=== PATIENT | male | born 1945 | race Caucasian/White ===

== ENCOUNTER → 2017-10-28 | Outpatient (CLI) | payer BC, MEDICARE ==
[2017-10-28 09:47] LABS: Appearance,Urine Clear (Clear); Bilirubin,Urine Negative (Negative); Blood,Urine Negative (Negative); Color,Urine Yellow; Glucose,Urine (UA) Negative (Negative); Ketones,Urine Negative (Negative); Leukocyte Esterase,Urine Negative (Negative); Nitrite,Urine Negative (Negative); PH, Urine 6.5 (5.0-8.0); Protein,Urine Negative (Negative); Specific Gravity,Urine 1.008 (1.001-1.035); Urobilinogen,Urine <2.0 mg/dL (<2.0)
[2017-10-28 10:08] LABS: Partial Thromboplastin Time 25.3 sec (22.0-30.0); Prothrombin Time 9.7 sec (9.0-12.0)
[2017-10-28 10:09] LABS: HCT 44.1 % (39.0-53.0); HGB 14.9 gm/dL (13.0-17.5); MCH 34.7 pg (25.0-35.0); MCHC 33.8 g/dL (31.0-37.0); MCV 102.8 fL (80.0-100.0); Macrocytosis Slight; Mean Platelet Volume 6.5; Platelet Count 214 k/uL (150-450); RBC 4.29 m/uL (4.30-5.90); RDW 13.5 % (11.5-15.5); WBC 6.2 k/uL (3.8-10.6)
[2017-10-28 10:14] LABS: ALT 45 U/L (21-72); AST 29 U/L (17-59); Albumin 4.1 g/dL (3.5-5.0); Alkaline Phosphatase 82 U/L (38-126); Anion Gap 6 mmol/L; Blood Urea Nitrogen 13 mg/dL (9-20); Calcium 9.9 mg/dL (8.4-10.2); Carbon Dioxide 30 mmol/L (22-30); Chloride 103 mmol/L (98-107); Glucose 149 mg/dL (74-99); Potassium 4.4 mmol/L (3.5-5.1); Sodium 139 mmol/L (137-145); Total Bilirubin 0.5 mg/dL (0.2-1.3); Total Protein 7.1 g/dL (6.3-8.2)
== END | disposition home or self-care (01) ==
LOC: LABPAT 09:08
PROVIDERS: ATTEND Orthopaedic Surgery
DX: Z01.812 Encounter for preprocedural laboratory examination (principal)
CPT/HCPCS: 80053; 81003; 85027; 85610; 85730; 87070; 93005

== ENCOUNTER → 2018-04-29 | Outpatient (CLI) | payer BC, MEDICARE ==
[2018-04-29 15:56] LABS: HCT 42.3 % (39.0-53.0); HGB 14.1 gm/dL (13.0-17.5); MCHC 33.4 g/dL (31.0-37.0); MCV 98.9 fL (80.0-100.0); Macrocytosis Slight; Mean Platelet Volume 6.8; Platelet Count 224 k/uL (150-450); RBC 4.28 m/uL (4.30-5.90); RDW 15.3 % (11.5-15.5); WBC 6.6 k/uL (3.8-10.6)
[2018-04-29 16:15] LABS: Partial Thromboplastin Time 24.8 sec (22.0-30.0); Prothrombin Time 9.5 sec (9.0-12.0)
[2018-04-29 16:20] LABS: ALT 28 U/L (21-72); AST 18 U/L (17-59); Albumin 3.6 g/dL (3.5-5.0); Alkaline Phosphatase 101 U/L (38-126); Anion Gap 10 mmol/L; Blood Urea Nitrogen 18 mg/dL (9-20); Calcium 8.9 mg/dL (8.4-10.2); Carbon Dioxide 28 mmol/L (22-30); Chloride 103 mmol/L (98-107); Glucose 196 mg/dL (74-99); Potassium 4.2 mmol/L (3.5-5.1); Sodium 141 mmol/L (137-145); Total Bilirubin 0.3 mg/dL (0.2-1.3); Total Protein 6.1 g/dL (6.3-8.2)
[2018-04-29 16:23] LABS: Appearance,Urine Clear (Clear); Bilirubin,Urine Negative (Negative); Blood,Urine Negative (Negative); Color,Urine Yellow; Glucose,Urine (UA) Negative (Negative); Ketones,Urine Negative (Negative); Leukocyte Esterase,Urine Negative (Negative); Nitrite,Urine Negative (Negative); PH, Urine 5.5 (5.0-8.0); Protein,Urine Negative (Negative); Specific Gravity,Urine 1.016 (1.001-1.035); Urobilinogen,Urine <2.0 mg/dL (<2.0)
== END | disposition home or self-care (01) ==
LOC: LABPAT 14:14
PROVIDERS: ATTEND Orthopaedic Surgery
DX: Z01.812 Encounter for preprocedural laboratory examination (principal); Z79.01 Long term (current) use of anticoagulants
CPT/HCPCS: 80053; 81003; 85027; 85610; 85730; 87070

== ENCOUNTER 2018-05-12 13:31 | Inpatient (IN) | payer BC, MEDICARE ==
[~2018-05-12 13:31] MED LIST: ACETAMINOPHEN TAB 500 MG TAB PO ONE; CLINDAMYCIN 900 MG in DEXTROSE 5% IN WATER 50 ML IVPB ONE; DEXAMETHASONE SOD PHOSPHATE 10 MG/ML 1 ML VIAL IV ONE; MELOXICAM 7.5 MG TAB PO ONE; MIDAZOLAM 2 MG/2 ML VIAL IV PRN; MIDAZOLAM 2 MG/2 ML VIAL ONE; ONDANSETRON 4 MG/2 ML VIAL IVP ONE; PROPOFOL 10 MG/ML 20 ML VIAL IV ONE; SODIUM CHLORIDE 0.9% 100 ML BAG ONE; TRANEXAMIC ACID 1,000 MG in SODIUM CHLORIDE 0.9% 50 ML IVPB ONE; TRANEXAMIC ACID 1,000 MG/10 ML VIAL ONE; diphenhydrAMINE 50 MG/ML 1 ML VIAL ONE; fentaNYL (PF) 50 MCG/ML 2 ML AMP IV PRN; fentaNYL (PF) 50 MCG/ML 2 ML AMP ONE
[2018-05-12] MEDS ORDERED: LIDOCAINE 1% 20 ML VIAL (10MG/ML) FOR IV START INTRADERMA ONE (14:13)
[2018-05-12] MEDS: LACTATED RINGERS 1,000 ML IV SCH (14:22)
[2018-05-12] MEDS ORDERED: CLINDAMYCIN 1,800 MG in SODIUM CHLORIDE 0.9% IRRIGATIO 3,000 ML IRRIGATION ONE (14:45)
[2018-05-12] MEDS: ROPIVACAINE 246.25 MG, EPINEPHrine 0.5 MG, KETOROLAC 30 MG, cloNIDine HCL/PF 80 MCG, WA... MISCELLANE ONE ×10 (15:03→15:21)
--- NOTE | 2018-05-12 15:44 | P.OP ---
Date of Procedure: 05/12/18 Preoperative Diagnosis: Severe osteoarthritis right knee Postoperative Diagnosis: Severe osteoarthritis right knee Procedure(s) Performed: Right total knee arthroplasty Implants: [employer] Oxinium femoral component size 6, right [employer] Julieth II right nonporous tibial baseplate size 6 [employer] size 13 mm Legion XLPE dished articular insert, size 5-6 [employer] Julieth II resurfacing patellar component, 35 mm All components were cemented using Jt bone cement.. The articulation is Oxinium on polyethylene. Anesthesia: spinal Surgeon: Jeff Mathew Fpga Engineer #1: Lovely Feldman Estimated Blood Loss (ml): 50 Pathology: other (Bone and cartilage) Condition: stable Disposition: PACU Indications for Procedure: After failure of conservative treatment we discussed the surgical and nonsurgical treatment options at length. Patient wishes to proceed with a total knee arthroplasty. Complications specific to this procedure were discussed at length, including but not limited to infection, bleeding, stiffness , and nerve injury. Patient is aware of all these complications and informed consent was obtained Operative Findings: The operative findings are consistent with severe osteoarthritis of the right knee Description of Procedure: Patient was seen in the preoperative area consent was reviewed and operative site was marked with a skin marker. Patient was then brought to the operating room and given preoperative antibiotics intravenously. A spinal anesthetic was administered by the anesthesia department. A tourniquet was placed on the upper thigh and the lower extremity was prepped and draped in usual sterile fashion. A gram of transexamic acid was given. A universal timeout was then performed which confirmed the patient's name, surgical site, ALLERGIES, and consent. The lower extremity was then exsanguinated and tourniquet was inflated to 350 mmHg. A standard and anterior midline approach to the knee was performed. The skin and subcutaneous tissue was dissected down to the patellar tendon. A medial parapatellar arthrotomy was then performed. The knee was then extended, the patellar was everted, and the knee was again flexed. Anterior horns of both menisci were excised, and a release was performed to the posterior medial aspect of the knee. On gross visual inspection, there was complete loss of articular cartilage in the medial and patellofemoral joint spaces. There was also significant cartilage damage in the lateral compartment. There were multiple periarticular osteophytes which were then removed with a Ronguer. The femoral canal was then opened with the appropriate drill, and the intramedullary femoral cutting guide was then placed and set for 4 of valgus. The distal femoral cutting block was then pinned in place, and the distal femur was then cut. The cutting block was then removed and the cut was checked for flatness. Next, the sizing guide was then placed and set for 3 external rotation based off of the epicondylar axis and Whitesides line. After the femur was sized, the appropriate 4-in-1 cutting block was then pinned in place. The anterior condyles were cut without notching. The posterior and chamfer cuts were performed while protecting the collateral ligaments. The cutting block was then removed, and the femoral canal was plugged with autologous bone. Attention was then directed to the tibia. The remaining ACL was removed with a Ronguer, and the tibia was then gently subluxed forward with a large bent knee retractor. Any remaining menisci was excised. The posterior lateral corner was cauterized in order to cauterize the lateral geniculate artery. The extra medullary tibial cutting guide was then placed, set for the appropriate rotation , slope, and depth of resection. The proximal tibia cutting guide was then pinned in place. Proximal tibia was then cut and sized. Next trials were then placed with the appropriate-sized insert. The knee was able to fully extend and flex to 130 and was stable throughout all range of motion. The knee was then extended, patella everted. Patella was then measured, and then using an osteotomy guide, the patella was cut at the appropriate level. The patella was then measured and drilled and the patella trial was then placed. The knee was then taken through range of motion with the patella trial and the patella tracked normally. The knee was then extended patella trial was then removed and the patella was everted. Knee was then flexed and lug holes were drilled through the femoral trial and the femoral trial was then removed. The tibial was then exposed, and the tibial broach guide was then pinned in place after it was set for the appropriate rotation to allow for the most coverage without overhang. The tibia was then reamed and broached. The cut surfaces of bone were then irrigated with pulsatile lavage. The posterior structures were injected with the ropivacaine solution. The knee was also irrigated with Irrisept solution. The components were then opened, the cement was mixed, and the components were then cemented in place. The cement was allowed to harden with the knee in full extension. While the cement was hardening, the remaining soft tissues were then injected with a ropivacaine solution, which consisted of 246.25 mg of ropivacaine, 0.5 mg of epinephrine, 30 mg of Toradol, 80 g of clonidine, and 48.45 mL of sterile water, for a total of 100 mL of fluid injected. After the cemented hardened. The tourniquet was released, and hemostasis was obtained. A second gram of transexamic acid was given. The knee was again irrigated. The knee was again taken through range of motion and found to be stable throughout all range of motion of 0-130 , and the patella tracked normally. The fascia was then closed with #2 strata fix suture. The subcutaneous tissue was closed with 3-0 Vicryl and 3-0 strata fix. Dermabond glue was used for the skin and placed with the knee in flexion. The patient was placed in a sterile silver dressing. Patient was then transferred to recovery room in stable condition. The statistical assistant AGUSTÍN Navarro was required due the complexity surgery and the need for a skilled certified surgical technician. She assisted in positioning, draping, retraction, and closure of the wound.
[2018-05-12] MEDS ORDERED: NALOXONE 0.4 MG/ML 1 ML VIAL IV PRN (16:32)
[2018-05-12] MEDS ORDERED: DIAZEPAM 5 MG TAB PO PRN ×2 (16:38)
[2018-05-12] MEDS ORDERED: MAGNESIUM HYDROXIDE 2,400 MG/10 ML CUP PO PRN (16:38)
[2018-05-12] MEDS ORDERED: ONDANSETRON 4 MG/2 ML VIAL IVP PRN (16:38)
[2018-05-12] MEDS ORDERED: HYDROcodone/APAP 7.5-325MG 1 EACH TAB PO PRN (16:38)
[2018-05-12] MEDS ORDERED: NA PHOS,M-B/NA PHOS,DI-BA 133 ML ENEMA RECTAL PRN (16:38)
[2018-05-12] MEDS ORDERED: HYDROmorphone 0.5 MG/0.5 ML SYRINGE IVP PRN ×4 (16:38)
[2018-05-12] MEDS ORDERED: BISACODYL 10 MG SUPP RECTAL PRN (16:38)
--- NOTE | 2018-05-12 17:03 | XR ---
EXAMINATION TYPE: XR knee limited RT DATE OF EXAM: 05/12/2018 CLINICAL HISTORY: Right knee pain and arthritis status post total knee replacement. TECHNIQUE: Portable AP and crosstable lateral views of the right knee are obtained immediately posto peratively. COMPARISON: None FINDINGS: Metallic hardware from total right knee arthroplasty is seen and appears satisfactory in a lignment and position. There is evidence of recent surgery with diffuse subcutaneous gas and moderat e diffuse subcutaneous edema noted. IMPRESSION: METALLIC HARDWARE FROM TOTAL RIGHT KNEE ARTHROPLASTY IS SATISFACTORY IN ALIGNMENT.
[2018-05-12] MEDS: SODIUM CHLORIDE 0.9% 1,000 ML IV SCH (18:22)
[2018-05-12] MEDS: CLINDAMYCIN 900 MG in DEXTROSE 5% IN WATER 50 ML IVPB SCH ×4 (18:23→23:21)
--- NOTE | 2018-05-12 18:25 | P.CONS ---
History of Present Illness - Reason for Consult Consult date: 05/12/18 hypertension Requesting physician: Jeff Mathew - Chief Complaint knee pain - History of Present Illness Patient is a 72-year-old male past medical history of hypertension, dyslipidemia, arthritis and coronary artery disease who presented for elective right total knee arthroplasty. Patient underwent right total knee arthroplasty without immediate postoperative complication on 05/12. Dr. Mathew's assistance consult for hypertensive management. Patient seen and examined at bedside after surgery. He tolerated the procedure well. He denies any postoperative pain at this time. He is not having any chest pain, shortness of breath, or nausea. He does not feel lightheaded or dizzy. He is having increasing right knee pain over the last year. He was taking [place] at home and was requiring 2 canes to ambulate. He does live alone. Patient states he was in his normal state of health prior to surgery. He denies any recent cough, cold, fever, flu, nausea, vomiting, diarrhea, or dysuria. He sees Alvino Plata nurse practitioner's his primary care physician. His plan is on auto was for rehab on discharge. Review of Systems Positive: + Right knee pain Pertinent positives and negatives as discussed in HPI, a complete review of systems was performed and all other systems are negative. Past Medical History Past Medical History: Hyperlipidemia, Hypertension, Myocardial Infarction ([place]) Additional Past Medical History / Comment(s): superficial phlibitis left leg, Hepatitis C, hypertension, coronary artery disease, history of MRSA, arthritis Last Myocardial Infarction Date:: unknown History of Any Multi-Drug Resistant Organisms: MRSA Year Discovered:: 2000 MDRO Source:: left hip Past Surgical History: Appendectomy, Heart Catheterization, Joint Replacement, Orthopedic Surgery Additional Past Surgical History / Comment(s): Left total hip arthroplasty 2000 with subsequent MRSA infection, surgery for varicose veins, left hip surgery as teen, right total hip arthroplasty 11/04/17 Past Anesthesia/Blood Transfusion Reactions: No Reported Reaction Additional Past Anesthesia/Blood Transfusion Reaction / Comm: no problems with prior blood transfusion Smoking Status: Current every day smoker Past Alcohol Use History: Daily Additional Past Alcohol Use History / Comment(s): Drinks 2 beers daily Additional Drug Use History / Comment(s): Lives alone, was using 2 canes prior to admission - Past Family History Mother Family Medical History: Cancer Father Family Medical History: Deep Vein Thrombosis (DVT) Brother(s) Family Medical History: Hypertension Medications and Allergies Home Medications Medication Instructions Recorded Confirmed Type Ascorbic Acid [Vitamin C] 500 mg PO DAILY 10/27/17 05/12/18 History FLUoxetine HCL [PROzac] 60 mg PO QAM 10/27/17 05/12/18 History Furosemide [Lasix] 40 mg PO DAILY 10/27/17 05/12/18 History Losartan [Cozaar] 25 mg PO QAM 10/27/17 05/12/18 History Lovastatin [Mevacor] 20 mg PO DAILY 10/27/17 05/12/18 History Multivitamins, Thera [Multivitamin 1 tab PO DAILY 10/27/17 05/12/18 History (formulary)] amLODIPine [Norvasc] 5 mg PO QAM 10/27/17 05/12/18 History Pregabalin [Lyrica] 75 mg PO BID #10 cap 11/05/17 05/12/18 Rx HYDROcodone/APAP 7.5-325MG [[place] 1 - 2 tab PO Q4-6H PRN #90 tab 11/07/17 Rx 7.5-325] Aspirin 325 mg PO DAILY 05/05/18 05/12/18 History Allergies Allergy/AdvReac Type Severity Reaction Status Date / Time adhesive tape Allergy blisters Verified 05/12/18 17:05 Penicillins Allergy Swelling Verified 05/12/18 17:05 Physical Exam Osteopathic Statement: *. No significant issues noted on an osteopathic structural exam other than those noted in the History and Physical/Consult. Vitals: Vital Signs Temp Pulse Resp BP Pulse Ox 05/12/18 17:30 50 L 18 141/72 92 L 05/12/18 17:15 50 L 18 136/71 92 L 05/12/18 17:00 49 L 16 140/70 92 L 05/12/18 16:41 49 L 16 141/73 100 05/12/18 16:24 97.2 F L 53 L 12 153/73 94 L 05/12/18 13:56 98.3 F 66 18 147/70 96 Intake and Output 05/12/18 05/12/18 05/12/18 06:59 14:59 22:59 Intake Total 857 0 Output Total 50 Balance 857 -50 Intake: IV 857 0 Output: Estimated Blood Loss 50 General: non toxic, no distress, appears at stated age, obese Derm: no unusual rashes/lesions no unusual ecchymoses, warm, dry, right leg with Eulogio wrap in place Head: atraumatic, normocephalic, symmetric Eyes: EOMI, no lid lag, anicteric sclera, pupils equal round reactive to light ENT: Nose and ears atraumatic, no thrush, no pharyngeal erythema Neck: No thyromegaly, no cervical lymphadenopathy, trachea midline, supple Mouth: no lip lesion, mucous membranes dry Cardiovascular: S1S2 reg, no murmur, positive posterior tibial pulse bilateral, trace edema right foot, capillary refill less than 2 seconds Lungs: Decreased breath sounds bilateral bases, no rhonchi, no rales , no accessory muscle use Abdominal: soft, nontender to palpation, no guarding, no appreciable organomegaly, normal bowel sounds Ext: no gross muscle atrophy, muscle strength 5 out of 5 in upper extremity, 4 out of 5 in left lower extremity, able to wiggle toes and right lower extremity , no contractures, Neuro: CN II-XI grossly intact, light touch intact all 4 extremities, finger to nose within normal limits, Psych: Alert, oriented, appropriate affect Results Labs: Preoperative blood work reviewed hemoglobin on 04/29/1814.1, creatinine 0.6, glucose 196 Assessment and Plan Assessment: Severe osteoarthritis status post right total knee arthroplasty -DVT prophylaxis with aspirin twice daily -Pain control -Bowel regiment -PT/OT -Plan is for [facility] for rehab on discharge Elevated random preoperative blood sugar greater than 196 -Warrants testing for possible overt diabetes -add sliding scale and test A1c Hypertension, controlled -Resume home Norvasc, Lasix, and Cozaar -Follow blood pressures -Do not plan to treat blood pressure elevation unless greater than 180 or symptoms of chest discomfort, shortness of breath or headaches Dyslipidemia -Statin Coronary artery disease -Maintain statin, aspirin will be twice a day postoperatively for DVT prophylaxis, not chronically on beta marlo and will not initiate at this point in time Morbid obesity with BMI 53.9 -Structured outpatient weight loss Preoperative debility with cane use and lives alone -PT/OT -Fall precautions -Patient will need rehab at discharge Thank you for allowing us to participate in the care of this patient. Do not hesitate to contact us with questions. Someone can be reached from the [facility] hospitalist group at all hours of the day at [phone].
[2018-05-12] MEDS ORDERED: LORazepam 2 MG/ML INJ IV PRN ×3 (19:04)
[2018-05-12] MEDS: THIAMINE 100 MG TAB PO SCH (20:15)
[2018-05-12] MEDS: ASPIRIN 325 MG TAB PO SCH (20:16)
[2018-05-12] MEDS: ATORVASTATIN 10 MG TAB PO SCH (20:17)
[2018-05-12] MEDS: PREGABALIN 75 MG CAP PO SCH (20:17)
[2018-05-12] MEDS: SENNOSIDES-DOCUSATE SODIUM 1 EACH TAB PO SCH (20:17)
[2018-05-12 20:44] LABS: Glucose,Whole Blood 256 mg/dL (75-99)
[2018-05-12] MEDS: INSULIN ASPART 100 UNIT/ML 1 ML 10 ML VIAL SQ SCH (20:55)
[2018-05-13] MEDS ORDERED: NICOTINE 21MG/24HR PATCH TRANSDERM SCH (09:00)
[2018-05-13 09:49] LABS: Glucose,Whole Blood 230 mg/dL (75-99)
[2018-05-13] MEDS: HYDROcodone/APAP 7.5-325MG 1 EACH TAB PO PRN ×2 (10:37→17:04)
[2018-05-13] MEDS: hydrOXYzine PAMOATE 25 MG CAP PO PRN (10:37)
[2018-05-13] MEDS: SODIUM CHLORIDE 0.9% 1,000 ML IV SCH ×2 (11:03→22:56)
[2018-05-13] MEDS: LACTATED RINGERS 1,000 ML IV SCH (11:03)
[2018-05-13] MEDS: ASCORBIC ACID 500 MG TAB PO SCH (11:03)
[2018-05-13] MEDS: amLODIPine 5 MG TAB PO SCH (11:03)
[2018-05-13] MEDS: INSULIN ASPART 100 UNIT/ML 1 ML 10 ML VIAL SQ SCH ×4 (11:03→21:35)
[2018-05-13] MEDS: FUROSEMIDE 40 MG TAB PO SCH (11:04)
[2018-05-13] MEDS: FLUoxetine HCL 20 MG CAP PO SCH (11:04)
[2018-05-13] MEDS: PREGABALIN 75 MG CAP PO SCH ×2 (11:04→20:26)
[2018-05-13] MEDS: MELOXICAM 7.5 MG TAB PO SCH (11:04)
[2018-05-13] MEDS: ASPIRIN 325 MG TAB PO SCH ×2 (11:04→20:26)
[2018-05-13] MEDS: LOSARTAN 25 MG TAB PO SCH (11:04)
[2018-05-13 11:33] LABS: Basophils % (A) 0 %; Eosinophils % (A) 0 %; HCT 38.7 % (39.0-53.0); HGB 12.9 gm/dL (13.0-17.5); Lymphocytes % (A) 12 %; MCH 33.7 pg (25.0-35.0); MCHC 33.4 g/dL (31.0-37.0); MCV 100.9 fL (80.0-100.0); Macrocytosis Slight; Mean Platelet Volume 7.4; Monocytes # (A) 0.6 k/uL (0-1.0); Monocytes % (A) 7 %; Neutrophils # (A) 6.8 k/uL (1.3-7.7); Neutrophils % (A) 79 %; Platelet Count 216 k/uL (150-450); RBC 3.83 m/uL (4.30-5.90); RDW 15.8 % (11.5-15.5); WBC 8.6 k/uL (3.8-10.6)
[2018-05-13 11:44] LABS: Glucose,Whole Blood 169 mg/dL (75-99)
--- NOTE | 2018-05-13 12:04 | P.PN ---
Subjective Progress Note Date: 05/13/18 This is a 72-year-old male who is status post right total knee arthroplasty. This is postoperative day #1. Patient is seen and evaluated at bedside with Dr. Jeff Mathew. Patient states that his pain is well-controlled today. Patient denies any fever/chills, numbness, weakness, tingling, shortness of breath or chest pain. Objective - Vital Signs Vital signs: Vital Signs Temp 96.9 F L 05/13/18 01:30 Pulse 64 05/13/18 01:30 Resp 16 05/13/18 01:30 BP 143/67 05/13/18 01:30 Pulse Ox 91 L 05/13/18 01:30 Intake & Output 05/12/18 05/13/18 05/13/18 18:59 06:59 18:59 Intake Total 857 Output Total 50 1300 Balance 807 -1300 Weight 170.551 kg Intake: IV 857 Output: Urine 1300 Estimated Blood Loss 50 - Exam vvital signs are stable. Patient is alert and oriented 3 sitting up in bed in no acute distress. Surgical dressing intact with a mild amount of drainage present. There is mild soft tissue swelling of the right knee. Calf is soft and nontender to palpation. Patient has full foot and ankle motion without pain or difficulty. Neurovascular status and circulatory status are intact. - Labs CBC & Chem 7: 05/13/18 07:55 Labs: Abnormal Lab Results - Last 24 Hours (Table) 05/12/18 05/13/18 Range/Units 20:32 09:47 POC Glucose (mg/dL) 256 H 230 H (75-99) mg/dL Assessment and Plan (1) Primary osteoarthritis of right knee Current Visit: Yes Status: Acute Code(s): M17.11 - UNILATERAL PRIMARY OSTEOARTHRITIS, RIGHT KNEE SNOMED Code(s): 832768994828858 (2) S/P total knee arthroplasty Current Visit: Yes Status: Acute Code(s): Z96.659 - PRESENCE OF UNSPECIFIED ARTIFICIAL KNEE JOINT SNOMED Code(s): 8390972622880 Plan: #1 Continue with routine postoperative care. Will change silver dressing tomorrow due to drainage. #2 Anticoagulation with aspirin. #3 Physical therapy and CPM today. #4 Appreciate input from medicine. #5 Anticipate discharge to rehab Friday.
[2018-05-13] MEDS: MULTIVITAMINS, THERA 1 EACH TAB PO SCH (12:38)
[2018-05-13] MEDS: FOLIC ACID 1 MG TAB PO SCH (12:38)
[2018-05-13] MEDS: THIAMINE 100 MG TAB PO SCH ×2 (12:38→17:04)
--- NOTE | 2018-05-13 13:43 | P.PN ---
Subjective Progress Note Date: 05/13/18 Principal diagnosis: Right knee pain Patient is a 72-year-old male past medical history of hypertension, dyslipidemia, arthritis and coronary artery disease who presented for elective right total knee arthroplasty. Patient underwent right total knee arthroplasty without immediate postoperative complication on 05/12. Dr. Mathew's asked us to consult for hypertensive management. Patient seen and examined at bedside. He states his pain is well controlled. He denies any shortness of breath, nausea, or diarrhea. He is not having any chest pain postoperatively. He has not yet had a bowel movement. Blood sugar yesterday evening was 256 this morning after breakfast was 230. Hemoglobin A1c is currently pending. Discussed with patient possibility of early diabetes. Patient went for a walk today with therapy and had drainage coming out of his wound that was bloody. They did require redressing the wound. Objective - Vital Signs Vital signs: Vital Signs Temp 96.9 F L 05/13/18 01:30 Pulse 64 05/13/18 01:30 Resp 16 05/13/18 01:30 BP 143/67 05/13/18 01:30 Pulse Ox 91 L 05/13/18 01:30 Intake & Output 05/12/18 05/13/18 05/13/18 18:59 06:59 18:59 Intake Total 857 Output Total 50 1300 Balance 807 -1300 Weight 170.551 kg Intake: IV 857 Output: Urine 1300 Estimated Blood Loss 50 - Exam General: non toxic, no distress, appears at stated age, obese Derm: warm, dry, right knee with dressing in place with sanguinousdrainage Head: atraumatic, normocephalic, symmetric Eyes: EOMI, no lid lag, anicteric sclera Mouth: no lip lesion, mucus membranes moist Cardiovascular: S1S2 reg, no murmur, positive posterior tibial pulse bilateral, Lungs: decreased breath sounds bilateral bases, no rhonchi, no rales , no accessory muscle use Abdominal: soft, nontender to palpation, no guarding, no appreciable organomegaly Ext: no gross muscle atrophy, trace edema bilateral lower extremities, no contractures Neuro: CN II-XI grossly intact, no focal neuro deficits Psych: Alert, oriented, appropriate affect - Labs CBC & Chem 7: 05/13/18 07:55 Labs: Abnormal Lab Results - Last 24 Hours (Table) 05/12/18 05/13/18 05/13/18 Range/Units 20:32 07:55 09:47 RBC 3.83 L (4.30-5.90) m/uL Hgb 12.9 L (13.0-17.5) gm/dL Hct 38.7 L (39.0-53.0) % MCV 100.9 H (80.0-100.0) fL RDW 15.8 H (11.5-15.5) % POC Glucose (mg/dL) 256 H 230 H (75-99) mg/dL 05/13/18 Range/Units 11:42 RBC (4.30-5.90) m/uL Hgb (13.0-17.5) gm/dL Hct (39.0-53.0) % MCV (80.0-100.0) fL RDW (11.5-15.5) % POC Glucose (mg/dL) 169 H (75-99) mg/dL Assessment and Plan Assessment: Severe osteoarthritis status post right total knee arthroplasty -DVT prophylaxis with aspirin twice daily -Pain control -Bowel regiment -PT/OT -Plan is for [facility] for rehab on discharge: risks lives alone, cane use prior, obesity, prior narcotic use, and possible diabetes. Elevated Blood sugars -Sliding-scale insulin -Await hemoglobin A1c, elevated greater than 6.5 consult international bank manager and initiate oral medication therapy. Hypertension, controlled -Resume home Norvasc, Lasix, and Cozaar -Follow blood pressures -Do not plan to treat blood pressure elevation unless greater than 180 or symptoms of chest discomfort, shortness of breath or headaches Dyslipidemia -Statin Coronary artery disease -Maintain statin, aspirin will be twice a day postoperatively for DVT prophylaxis, not chronically on beta marlo and will not initiate at this point in time Morbid obesity with BMI 53.9 -Structured outpatient weight loss Preoperative debility with cane use and lives alone -PT/OT -Fall precautions -Patient will need rehab at discharge Thank you for allowing us to participate in the care of this patient. Do not hesitate to contact us with questions. Someone can be reached from the [facility] hospitalist group at all hours of the day at [phone].
[2018-05-13 17:11] LABS: Glucose,Whole Blood 149 mg/dL (75-99)
[2018-05-13 17:20] LABS: Hemoglobin A1C 7.3 % (4.0-6.0)
[2018-05-13] MEDS: ATORVASTATIN 10 MG TAB PO SCH (20:26)
[2018-05-13] MEDS: SENNOSIDES-DOCUSATE SODIUM 1 EACH TAB PO SCH (20:27)
[2018-05-13 21:27] LABS: Glucose,Whole Blood 192 mg/dL (75-99)
[2018-05-14] MEDS: HYDROcodone/APAP 7.5-325MG 1 EACH TAB PO PRN ×3 (05:40→18:37)
[2018-05-14] MEDS: LACTATED RINGERS 1,000 ML IV SCH (05:50)
[2018-05-14 07:17] LABS: Glucose,Whole Blood 160 mg/dL (75-99)
--- NOTE | 2018-05-14 08:42 | P.PN ---
Subjective Progress Note Date: 05/14/18 This is a 72-year-old male who is status post right total knee arthroplasty. This is postoperative day #2. Patient states that he has been up and walking with physical therapy. Patient complains of drainage from the incision when walking. Patient denies any fever/chills, numbness, weakness, tingling, shortness of breath or chest pain. Objective - Vital Signs Vital signs: Vital Signs Temp 98.6 F 05/14/18 07:00 Pulse 95 05/14/18 07:00 Resp 16 05/14/18 07:00 BP 148/77 05/14/18 07:00 Pulse Ox 96 05/14/18 07:00 Intake & Output 05/13/18 05/14/18 05/14/18 18:59 06:59 18:59 Output Total 675 450 Balance -675 -450 Weight 170 kg Output: Urine 675 450 Other: # Voids 1 1 - Exam Vital signs are stable. Patient is alert and oriented 3 sitting up in bed in no acute distress. Surgical dressing intact with a moderate amount of drainage present. There is mild soft tissue swelling of the right knee. Calf is soft and nontender to palpation. Patient has full foot and ankle motion without pain or difficulty. Neurovascular status and circulatory status are intact. - Labs CBC & Chem 7: 05/13/18 07:55 Labs: Abnormal Lab Results - Last 24 Hours (Table) 05/13/18 05/13/18 05/13/18 Range/Units 07:55 07:55 09:47 RBC 3.83 L (4.30-5.90) m/uL Hgb 12.9 L (13.0-17.5) gm/dL Hct 38.7 L (39.0-53.0) % MCV 100.9 H (80.0-100.0) fL RDW 15.8 H (11.5-15.5) % POC Glucose (mg/dL) 230 H (75-99) mg/dL Hemoglobin A1c 7.3 H (4.0-6.0) % 05/13/18 05/13/18 05/13/18 Range/Units 11:42 17:09 21:16 RBC (4.30-5.90) m/uL Hgb (13.0-17.5) gm/dL Hct (39.0-53.0) % MCV (80.0-100.0) fL RDW (11.5-15.5) % POC Glucose (mg/dL) 169 H 149 H 192 H (75-99) mg/dL Hemoglobin A1c (4.0-6.0) % 05/14/18 Range/Units 07:15 RBC (4.30-5.90) m/uL Hgb (13.0-17.5) gm/dL Hct (39.0-53.0) % MCV (80.0-100.0) fL RDW (11.5-15.5) % POC Glucose (mg/dL) 160 H (75-99) mg/dL Hemoglobin A1c (4.0-6.0) % Assessment and Plan (1) Primary osteoarthritis of right knee Current Visit: Yes Status: Acute Code(s): M17.11 - UNILATERAL PRIMARY OSTEOARTHRITIS, RIGHT KNEE SNOMED Code(s): 763694405219375 (2) S/P total knee arthroplasty Current Visit: Yes Status: Acute Code(s): Z96.659 - PRESENCE OF UNSPECIFIED ARTIFICIAL KNEE JOINT SNOMED Code(s): 8847364424514 Plan: #1 Continue with routine postoperative care. Will change silver dressing tomorrow due to drainage. #2 Anticoagulation with aspirin. #3 Physical therapy today, hold CPM today due to drainage. #4 Appreciate input from medicine. #5 Anticipate discharge to rehab Friday.
[2018-05-14] MEDS: INSULIN ASPART 100 UNIT/ML 1 ML 10 ML VIAL SQ SCH ×4 (09:05→20:47)
[2018-05-14] MEDS: MELOXICAM 7.5 MG TAB PO SCH (09:06)
[2018-05-14] MEDS: ASPIRIN 325 MG TAB PO SCH ×2 (09:06→20:41)
[2018-05-14] MEDS: LOSARTAN 25 MG TAB PO SCH (09:06)
[2018-05-14] MEDS: PREGABALIN 75 MG CAP PO SCH ×2 (09:07→20:41)
[2018-05-14] MEDS: FLUoxetine HCL 20 MG CAP PO SCH (09:07)
[2018-05-14] MEDS: ASCORBIC ACID 500 MG TAB PO SCH (09:07)
[2018-05-14] MEDS: amLODIPine 5 MG TAB PO SCH (09:08)
[2018-05-14] MEDS: FUROSEMIDE 40 MG TAB PO SCH (09:13)
--- NOTE | 2018-05-14 10:57 | P.PN ---
Subjective Progress Note Date: 05/14/18 Principal diagnosis: Right knee pain Patient is a 72-year-old male past medical history of hypertension, dyslipidemia, arthritis and coronary artery disease who presented for elective right total knee arthroplasty. Patient underwent right total knee arthroplasty without immediate postoperative complication on 05/12. Dr. Mathew's asked us to consult for hypertensive management. He was found to have new diabetes with A1C 7.3 Patient seen and examined at bedside. No chest pain, shortness breath, nausea, or vomiting. Pain well controlled. He is still bleeding when he is up and ambulating. Discussed with patient the diagnosis of diabetes. Need for eye exam and foot exam after discharge as well as close follow-up with his PCP. Need for monitoring of blood sugar. Also discussed with him starting a medication such as metformin and patient is in agreement with plan of care. He has been having constipation recently after the surgery. Objective - Vital Signs Vital signs: Vital Signs Temp 98.6 F 05/14/18 07:00 Pulse 95 05/14/18 07:00 Resp 16 05/14/18 07:00 BP 148/77 05/14/18 07:00 Pulse Ox 96 05/14/18 07:00 Intake & Output 05/13/18 05/14/18 05/14/18 18:59 06:59 18:59 Output Total 675 450 Balance -675 -450 Weight 170 kg Output: Urine 675 450 Other: # Voids 1 1 - Exam General: non toxic, no distress, appears at stated age, obese Derm: warm, dry, right knee with dressing in place with small amount of soak through Head: atraumatic, normocephalic, symmetric Eyes: EOMI, no lid lag, anicteric sclera Mouth: no lip lesion, mucus membranes moist Cardiovascular: S1S2 reg, no murmur, positive posterior tibial pulse bilateral, Lungs: decreased breath sounds bilateral bases, no rhonchi, no rales , no accessory muscle use Abdominal: soft, nontender to palpation, no guarding, no appreciable organomegaly Ext: no gross muscle atrophy, trace edema bilateral lower extremities, no contractures Neuro: CN II-XI grossly intact, no focal neuro deficits Psych: Alert, oriented, appropriate affect - Labs CBC & Chem 7: 05/13/18 07:55 Labs: Abnormal Lab Results - Last 24 Hours (Table) 05/13/18 05/13/18 05/13/18 Range/Units 07:55 07:55 11:42 RBC 3.83 L (4.30-5.90) m/uL Hgb 12.9 L (13.0-17.5) gm/dL Hct 38.7 L (39.0-53.0) % MCV 100.9 H (80.0-100.0) fL RDW 15.8 H (11.5-15.5) % POC Glucose (mg/dL) 169 H (75-99) mg/dL Hemoglobin A1c 7.3 H (4.0-6.0) % 05/13/18 05/13/18 05/14/18 Range/Units 17:09 21:16 07:15 RBC (4.30-5.90) m/uL Hgb (13.0-17.5) gm/dL Hct (39.0-53.0) % MCV (80.0-100.0) fL RDW (11.5-15.5) % POC Glucose (mg/dL) 149 H 192 H 160 H (75-99) mg/dL Hemoglobin A1c (4.0-6.0) % Assessment and Plan Assessment: New onset diabetes, A1c 7.3. -Start metformin -Continue with sliding scale insulin -Consult aluminum siding applicator and dietitian -We will need prescription for metformin as an outpatient. Will need Rx for glucometer when discharged from SNF. - Informed patient of need for optho and foot evaluation. -Already taking an ARB and no indication to check microalbumin Severe osteoarthritis status post right total knee arthroplasty -DVT prophylaxis with aspirin twice daily -Pain control -Bowel regiment -PT/OT -Plan is for [facility] for rehab on discharge: risks lives alone, cane use prior, obesity, prior narcotic use, and possible diabetes. Hypertension, controlled -Resume home Norvasc, Lasix, and Cozaar -Follow blood pressures -Do not plan to treat blood pressure elevation unless greater than 180 or symptoms of chest discomfort, shortness of breath or headaches Dyslipidemia -Statin Coronary artery disease -Maintain statin, aspirin will be twice a day postoperatively for DVT prophylaxis, not chronically on beta marlo and will not initiate at this point in time Morbid obesity with BMI 53.9 -Structured outpatient weight loss Preoperative debility with cane use and lives alone -PT/OT -Fall precautions -Patient will need rehab at discharge Thank you for allowing us to participate in the care of this patient. Do not hesitate to contact us with questions. Someone can be reached from the [facility] hospitalist group at all hours of the day at [phone].
[2018-05-14 11:14] VITALS: BMI 53.7
[2018-05-14] MEDS: THIAMINE 100 MG TAB PO SCH ×2 (11:21→16:44)
[2018-05-14] MEDS: FOLIC ACID 1 MG TAB PO SCH (11:21)
[2018-05-14] MEDS: MULTIVITAMINS, THERA 1 EACH TAB PO SCH (11:21)
[2018-05-14 11:28] LABS: Glucose,Whole Blood 186 mg/dL (75-99)
[2018-05-14] MEDS: hydrOXYzine PAMOATE 25 MG CAP PO PRN ×2 (11:41→18:37)
[2018-05-14] MEDS: SODIUM CHLORIDE 0.9% 1,000 ML IV SCH (13:57)
[2018-05-14 16:32] LABS: Glucose,Whole Blood 153 mg/dL (75-99)
[2018-05-14] MEDS: metFORMIN 500 MG TAB PO SCH (16:44)
[2018-05-14 20:10] LABS: Glucose,Whole Blood 138 mg/dL (75-99)
[2018-05-14] MEDS: SENNOSIDES-DOCUSATE SODIUM 1 EACH TAB PO SCH (20:41)
[2018-05-14] MEDS: ATORVASTATIN 10 MG TAB PO SCH (20:41)
[2018-05-15] MEDS: HYDROcodone/APAP 7.5-325MG 1 EACH TAB PO PRN ×3 (00:20→12:39)
[2018-05-15] MEDS: LACTATED RINGERS 1,000 ML IV SCH (06:01)
[2018-05-15 06:04] VITALS: BP 163/79; PULSE 60; RESP 16; TEMP 97.7
[2018-05-15 07:23] LABS: Basophils % (A) 1 %; Eosinophils # (A) 0.2 k/uL (0-0.7); Eosinophils % (A) 4 %; HCT 38.3 % (39.0-53.0); HGB 12.7 gm/dL (13.0-17.5); Lymphocytes # (A) 1.6 k/uL (1.0-4.8); Lymphocytes % (A) 26 %; MCH 32.9 pg (25.0-35.0); MCHC 33.1 g/dL (31.0-37.0); MCV 99.3 fL (80.0-100.0); Macrocytosis Slight; Mean Platelet Volume 6.3; Monocytes # (A) 0.4 k/uL (0-1.0); Monocytes % (A) 7 %; Neutrophils # (A) 3.8 k/uL (1.3-7.7); Neutrophils % (A) 61 %; Platelet Count 253 k/uL (150-450); RBC 3.85 m/uL (4.30-5.90); RDW 15.4 % (11.5-15.5); WBC 6.2 k/uL (3.8-10.6)
[2018-05-15 07:35] LABS: Glucose,Whole Blood 155 mg/dL (75-99)
[2018-05-15] MEDS: metFORMIN 500 MG TAB PO SCH (08:10)
[2018-05-15] MEDS: ASCORBIC ACID 500 MG TAB PO SCH (08:10)
[2018-05-15] MEDS: FUROSEMIDE 40 MG TAB PO SCH (08:10)
[2018-05-15] MEDS: MELOXICAM 7.5 MG TAB PO SCH (08:10)
[2018-05-15] MEDS: ASPIRIN 325 MG TAB PO SCH (08:10)
[2018-05-15] MEDS: PREGABALIN 75 MG CAP PO SCH (08:10)
[2018-05-15] MEDS: LOSARTAN 25 MG TAB PO SCH (08:11)
[2018-05-15] MEDS: amLODIPine 5 MG TAB PO SCH (08:11)
[2018-05-15] MEDS: FLUoxetine HCL 20 MG CAP PO SCH (08:11)
[2018-05-15] MEDS: INSULIN ASPART 100 UNIT/ML 1 ML 10 ML VIAL SQ SCH ×2 (08:12→12:32)
--- NOTE | 2018-05-15 08:13 | P.DS ---
Providers Date of admission: 05/12/18 13:40 Expected date of discharge: 05/15/18 Attending physician: Jeff Mathew Consults: 05/12/18 16:38 Consult Physician Routine Consulting Provider: Alvino Og Consult Reason/Comments: medical management Do you want consulting provider notified?: Yes 05/12/18 17:47 Consult Physician Routine Consulting Provider: Rhonda Marcum Consult Reason/Comments: medical management Do you want consulting provider notified?: Yes Primary care physician: Alfredo Velásquez MD - Discharge Diagnosis(es) (1) Primary osteoarthritis of right knee Current Visit: Yes Status: Acute (2) S/P total knee arthroplasty Current Visit: Yes Status: Acute Hospital Course: This is a 72-year-old male with known history of degenerative arthritis of the right knee. The patient presents for evaluation. After discussion and consideration patient elects to proceed with total knee arthroplasty. The patient is seen preoperatively by Dr. Mathew and medically cleared for surgery by their primary care physician. Patient is admitted to [facility] on 05/12/2018 for total knee arthroplasty. The procedures performed without complication or sequelae. The patient is doing well postoperatively. Labs and vital signs are stable on day of discharge. On day of discharge patient's knee incision is healing well. There is minimal erythema. There is mild drainage noted at this time. There is minimal soft tissue swelling to the knee. Patient has full foot and ankle motion without difficulty or pain. Neurovascular status to the right lower extremity is intact. Patient is discharged to rehab in good condition. Please see med rec for accurate list of home medications. Plan - Discharge Summary Discharge Rx Participant: Yes New Discharge Prescriptions: New Aspirin 325 mg PO BID #60 tab HYDROcodone/APAP 7.5-325MG [[place] 7.5-325] 1 - 2 tab PO Q4-6H PRN #90 tab PRN Reason: Pain Sennosides [Senokot] 1 tab PO BID #60 tablet No Action Multivitamins, Thera [Multivitamin (formulary)] 1 tab PO DAILY Ascorbic Acid [Vitamin C] 500 mg PO DAILY Lovastatin [Mevacor] 20 mg PO DAILY Furosemide [Lasix] 40 mg PO DAILY FLUoxetine HCL [PROzac] 60 mg PO QAM amLODIPine [Norvasc] 5 mg PO QAM Losartan [Cozaar] 25 mg PO QAM Pregabalin [Lyrica] 75 mg PO BID #10 cap HYDROcodone/APAP 7.5-325MG [[place] 7.5-325] 1 - 2 tab PO Q4-6H PRN #90 tab PRN Reason: Pain Aspirin 325 mg PO DAILY Discharge Medication List Ascorbic Acid [Vitamin C] 500 mg PO DAILY 10/27/17 [History] FLUoxetine HCL [PROzac] 60 mg PO QAM 10/27/17 [History] Furosemide [Lasix] 40 mg PO DAILY 10/27/17 [History] Losartan [Cozaar] 25 mg PO QAM 10/27/17 [History] Lovastatin [Mevacor] 20 mg PO DAILY 10/27/17 [History] Multivitamins, Thera [Multivitamin (formulary)] 1 tab PO DAILY 10/27/17 [History ] amLODIPine [Norvasc] 5 mg PO QAM 10/27/17 [History] Pregabalin [Lyrica] 75 mg PO BID #10 cap 11/05/17 [Rx] HYDROcodone/APAP 7.5-325MG [[place] 7.5-325] 1 - 2 tab PO Q4-6H PRN #90 tab [Rx] Aspirin 325 mg PO DAILY 05/05/18 [History] Aspirin 325 mg PO BID #60 tab 05/15/18 [Rx] HYDROcodone/APAP 7.5-325MG [[place] 7.5-325] 1 - 2 tab PO Q4-6H PRN #90 tab [Rx] Sennosides [Senokot] 1 tab PO BID #60 tablet 05/15/18 [Rx] Follow up Appointment(s)/Referral(s): Jeff Mathew DO [Doctor of Osteopathic Medicine] - 05/25/18 3:40 pm Ambulatory/Diagnostic Orders: Continuous Passive Motion (CPM) Machine [DME.AMB1] Time Frame: 3 Weeks, Location : None Selected Activity/Diet/Wound Care/Special Instructions: Will need accucheck once daily in AM. after discharge from [facility] will need foot exam and dilated eye exam. Upon discharge from [facility] will also need prescription for a glucometer, and testing supplies. Weightbearing as tolerated with a walker CPM 5-6h daily Leave dressing intact. May be removed by home care nurse in 10 days. May shower with dressing on. Please call [facility] with any questions or concerns, Discharge Disposition: TRANSFER TO SNF/ECF
[2018-05-15] MEDS: SODIUM CHLORIDE 0.9% 1,000 ML IV SCH (08:19)
--- NOTE | 2018-05-15 10:52 | P.PN ---
Subjective Progress Note Date: 05/15/18 Principal diagnosis: Right knee pain Patient is a 72-year-old male past medical history of hypertension, dyslipidemia, arthritis and coronary artery disease who presented for elective right total knee arthroplasty. Patient underwent right total knee arthroplasty without immediate postoperative complication on 05/12. Dr. Mathew's asked us to consult for hypertensive management. He was found to have new diabetes with A1C 7.3 Patient seen and examined at bedside. Feeling well no complaints currently. No chest pain, SOB, or nausea. No BM yesterday. Met with environmental educator and dietitian. Objective - Vital Signs Vital signs: Vital Signs Temp 97.7 F 05/15/18 05:15 Pulse 60 05/15/18 05:15 Resp 16 05/15/18 05:15 BP 163/79 05/15/18 05:15 Pulse Ox 94 L 05/15/18 05:15 Intake & Output 05/14/18 05/15/18 05/15/18 18:59 06:59 18:59 Intake Total 236 500 240 Output Total 1050 400 Balance -814 500 -160 Weight 170 kg Intake: Oral 236 500 240 Output: Urine 1050 400 Other: Voiding Method Toilet Urinal # Voids 2 - Exam General: non toxic, no distress, appears at stated age, obese Derm: warm, dry, right knee with dressing in place with large amount of soak through Head: atraumatic, normocephalic, symmetric Eyes: EOMI, no lid lag, anicteric sclera Mouth: no lip lesion, mucus membranes moist Cardiovascular: S1S2 reg, no murmur, positive posterior tibial pulse bilateral, Lungs: decreased breath sounds bilateral bases, no rhonchi, no rales , no accessory muscle use Abdominal: soft, nontender to palpation, no guarding, no appreciable organomegaly Ext: no gross muscle atrophy, trace edema bilateral lower extremities, no contractures Neuro: CN II-XI grossly intact, no focal neuro deficits Psych: Alert, oriented, appropriate affect - Labs CBC & Chem 7: 05/15/18 06:47 Labs: Abnormal Lab Results - Last 24 Hours (Table) 05/14/18 05/14/18 05/14/18 Range/Units 11:26 16:26 20:09 RBC (4.30-5.90) m/uL Hgb (13.0-17.5) gm/dL Hct (39.0-53.0) % POC Glucose (mg/dL) 186 H 153 H 138 H (75-99) mg/dL 05/15/18 05/15/18 Range/Units 06:47 07:15 RBC 3.85 L (4.30-5.90) m/uL Hgb 12.7 L (13.0-17.5) gm/dL Hct 38.3 L (39.0-53.0) % POC Glucose (mg/dL) 155 H (75-99) mg/dL Assessment and Plan Assessment: New onset diabetes, A1c 7.3. -metformin 500 BID, follow up [facility] PCP -Continue with sliding scale insulin -Met with environmental educator and dietitian -We will need prescription for metformin as an outpatient. Will need Rx for glucometer when discharged from SNF. - Informed patient of need for optho and foot evaluation. -Already taking an ARB and no indication to check microalbumin Severe osteoarthritis status post right total knee arthroplasty -DVT prophylaxis with aspirin twice daily -Pain control -Bowel regiment -PT/OT -Plan is for [facility] for rehab on discharge: risks lives alone, cane use prior, obesity, prior narcotic use, and possible diabetes. Hypertension, controlled -Continue Norvasc, Lasix, and Cozaar -Follow blood pressures -Do not plan to treat blood pressure elevation unless greater than 180 or symptoms of chest discomfort, shortness of breath or headaches Morbid obesity with BMI 53.9 -Structured outpatient weight loss Dyslipidemia -Statin Coronary artery disease -Maintain statin, aspirin will be twice a day postoperatively for DVT prophylaxis, not chronically on beta marlo and will not initiate at this point in time Preoperative debility with cane use and lives alone -PT/OT -Fall precautions -Patient will need rehab at discharge Medically stable for discharge to rehab.
[2018-05-15 12:27] LABS: Glucose,Whole Blood 120 mg/dL (75-99)
[2018-05-15] MEDS: MULTIVITAMINS, THERA 1 EACH TAB PO SCH (12:34)
[2018-05-15] MEDS: THIAMINE 100 MG TAB PO SCH (12:34)
[2018-05-15] MEDS: FOLIC ACID 1 MG TAB PO SCH (12:35)
== END 2018-05-15 14:07 | DRG 470 ==
LOC: 2ORMAIN 13:40 → 3SUR 17:34 → 5MS5E 05-14 17:29
PROVIDERS: ADMIT Orthopaedic Surgery; ATTEND Orthopaedic Surgery
PROC: 0SRC069 Replacement of Right Knee Joint with Oxidized Zirconium on Polyethylene Synthetic Substitute, Cemented, Open Approach (ICD-10-PCS; principal; 2018-05-12 16:00)
DX: M17.11 Unilateral primary osteoarthritis, right knee (principal); Z68.43 Body mass index [BMI] 50.0-59.9, adult; I10 Essential (primary) hypertension; E66.01 Morbid (severe) obesity due to excess calories; K59.00 Constipation, unspecified; I25.2 Old myocardial infarction; R53.81 Other malaise; E11.65 Type 2 diabetes mellitus with hyperglycemia; I25.10 Atherosclerotic heart disease of native coronary artery without angina pectoris; E11.51 Type 2 diabetes mellitus with diabetic peripheral angiopathy without gangrene; F17.210 Nicotine dependence, cigarettes, uncomplicated; E78.5 Hyperlipidemia, unspecified; F41.9 Anxiety disorder, unspecified; F32.9 Major depressive disorder, single episode, unspecified; Z96.643 Presence of artificial hip joint, bilateral; Z82.49 Family history of ischemic heart disease and other diseases of the circulatory system; Z79.899 Other long term (current) drug therapy; Z86.14 Personal history of Methicillin resistant Staphylococcus aureus infection; Z79.82 Long term (current) use of aspirin; Z71.6 Tobacco abuse counseling; Z79.891 Long term (current) use of opiate analgesic; Z60.2 Problems related to living alone; Z90.49 Acquired absence of other specified parts of digestive tract; Z86.19 Personal history of other infectious and parasitic diseases; Z71.3 Dietary counseling and surveillance; Z80.9 Family history of malignant neoplasm, unspecified; Z98.890 Other specified postprocedural states; Z88.0 Allergy status to penicillin; Z91.048 Other nonmedicinal substance allergy status
CPT/HCPCS: 83036; 85025; 88300

== ENCOUNTER → 2019-10-05 | Outpatient (CLI) | payer BC, MEDICARE ==
[2019-10-05 12:16] LABS: ALT 24 U/L (21-72); AST 22 U/L (17-59); African American GFR (CKD) >90 (>60 ml/min/1.73 sqM); Albumin 3.9 g/dL (3.5-5.0); Alkaline Phosphatase 118 U/L (38-126); Anion Gap 7 mmol/L; Appearance,Urine Clear (Clear); Bilirubin,Urine Negative (Negative); Blood Urea Nitrogen 11 mg/dL (9-20); Blood,Urine Negative (Negative); Calcium 9.5 mg/dL (8.4-10.2); Carbon Dioxide 29 mmol/L (22-30); Chloride 104 mmol/L (98-107); Color,Urine Yellow; Glucose 121 mg/dL (74-99); Glucose,Urine (UA) Negative (Negative); Ketones,Urine Negative (Negative); Leukocyte Esterase,Urine Negative (Negative); Nitrite,Urine Negative (Negative); Non-African American GFR(CKD) >90 (>60 ml/min/1.73 sqM); Potassium 4.1 mmol/L (3.5-5.1); Protein,Urine Negative (Negative); Sodium 140 mmol/L (137-145); Specific Gravity,Urine 1.008 (1.001-1.035); Total Bilirubin 0.5 mg/dL (0.2-1.3); Total Protein 6.9 g/dL (6.3-8.2); Urobilinogen,Urine <2.0 mg/dL (<2.0)
[2019-10-05 12:17] LABS: HCT 42.1 % (39.0-53.0); HGB 13.6 gm/dL (13.0-17.5); MCH 33.3 pg (25.0-35.0); MCHC 32.3 g/dL (31.0-37.0); MCV 103.2 fL (80.0-100.0); Macrocytosis Slight; Mean Platelet Volume 6.5; Platelet Count 261 k/uL (150-450); RBC 4.08 m/uL (4.30-5.90); RDW 14.7 % (11.5-15.5); WBC 7.5 k/uL (3.8-10.6)
[2019-10-05 12:21] LABS: INR 0.9 (<1.2); Partial Thromboplastin Time 28.5 sec (22.0-30.0)
== END | disposition home or self-care (01) ==
LOC: LABPAT 10:36
PROVIDERS: ATTEND Orthopaedic Surgery
DX: Z01.818 Encounter for other preprocedural examination (principal); Z01.812 Encounter for preprocedural laboratory examination; M17.12 Unilateral primary osteoarthritis, left knee; Z51.81 Encounter for therapeutic drug level monitoring; Z79.01 Long term (current) use of anticoagulants
CPT/HCPCS: 36415; 80053; 81003; 85027; 85610; 85730; 87070; 93005

== ENCOUNTER 2019-11-04 07:46 | Day surgery (SDC) | payer BC, MEDICARE ==
[2019-11-02 08:28] VITALS: BMI 42.3
[~2019-11-04 07:46] MED LIST changes: -CLINDAMYCIN 900 MG in DEXTROSE 5% IN WATER 50 ML IVPB ONE; +GABAPENTIN 300 MG CAP PO ONE; +HYDROmorphone 0.5 MG/0.5 ML SYRINGE IVP PRN; +LIDOCAINE 1% 20 ML VIAL (10MG/ML) FOR IV START INTRADERMA PRN; -MIDAZOLAM 2 MG/2 ML VIAL ONE; -PROPOFOL 10 MG/ML 20 ML VIAL IV ONE; +ROPIVACAINE 246.25 MG, EPINEPHrine 0.5 MG, KETOROLAC 30 MG, cloNIDine HCL/PF 80 MCG, WA... MISCELLANE ONE; +SCOPOLAMINE 1.5MG/72HR PATCH TRANSDERM ONE; -SODIUM CHLORIDE 0.9% 100 ML BAG ONE; +TRANEXAMIC ACID 1,000 MG in SODIUM CHLORIDE 0.9% 100 ML IVPB ONE; -TRANEXAMIC ACID 1,000 MG in SODIUM CHLORIDE 0.9% 50 ML IVPB ONE; -TRANEXAMIC ACID 1,000 MG/10 ML VIAL ONE; +ceFAZolin 3 GM in SODIUM CHLORIDE 0.9% 100 ML IVPB ONE; -diphenhydrAMINE 50 MG/ML 1 ML VIAL ONE; -fentaNYL (PF) 50 MCG/ML 2 ML AMP IV PRN; -fentaNYL (PF) 50 MCG/ML 2 ML AMP ONE
[2019-11-04] MEDS: LACTATED RINGERS 1,000 ML IV SCH (08:17)
[2019-11-04 08:18] LABS: Glucose,Whole Blood 124 mg/dL (75-99)
[2019-11-04] MEDS ORDERED: HYDROmorphone 0.5 MG/0.5 ML SYRINGE IVP PRN ×3 (08:53)
[2019-11-04] MEDS ORDERED: hydrOXYzine PAMOATE 25 MG CAP PO PRN (08:53)
[2019-11-04] MEDS ORDERED: DIAZEPAM 5 MG TAB PO PRN (08:53)
[2019-11-04] MEDS ORDERED: MAGNESIUM HYDROXIDE 2,400 MG/10 ML CUP PO PRN (08:53)
[2019-11-04] MEDS ORDERED: HYDROcodone/APAP 5-325MG 1 EACH TAB PO PRN (08:53)
[2019-11-04] MEDS ORDERED: NALOXONE 0.4 MG/ML 1 ML VIAL IV PRN (08:53)
[2019-11-04] MEDS ORDERED: BISACODYL 10 MG SUPP RECTAL PRN (08:53)
[2019-11-04] MEDS ORDERED: ONDANSETRON 4 MG/2 ML VIAL IVP PRN (08:53)
[2019-11-04] MEDS ORDERED: ROPIVACAINE 0.2%-NS ON-Q PUMP 1,090 MG, EMPTY PAIN BALL 1 EACH MISCELLANE PRN (08:53)
[2019-11-04] MEDS ORDERED: NA PHOS,M-B/NA PHOS,DI-BA 133 ML ENEMA RECTAL PRN (08:53)
--- NOTE | 2019-11-04 10:33 | P.OP ---
Date of Procedure: 11/04/19 Preoperative Diagnosis: Severe osteoarthritis left knee Postoperative Diagnosis: Severe osteoarthritis left knee Procedure(s) Performed: Left total knee arthroplasty Implants: [employer] II CR Oxinium cruciate retaining femoral component size 6, left [employer] left nonporous tibial baseplate size 6 [employer] Journey II, XLPE Deep Dished articular insert, size 13 mm, Size 5-6 left [employer] BCS resurfacing oval patellar component, 35 mm All components were cemented using [place] R bone cement.. The articulation is Oxinium on polyethylene. Anesthesia: spinal Surgeon: Jeff Mathew Meat Stock Clerk #1: Lovely Feldman Estimated Blood Loss (ml): 50 Pathology: other (Bone and cartilage) Condition: stable Disposition: PACU Indications for Procedure: After failure of conservative treatment we discussed the surgical and nonsurgical treatment options at length. Patient wishes to proceed with a total knee arthroplasty. Complications specific to this procedure were discussed at length, including but not limited to infection, bleeding, stiffness, and nerve injury. Patient is aware of all these complications and informed consent was obtained Operative Findings: The operative findings are consistent with severe osteoarthritis of the left knee Description of Procedure: Patient was seen in the preoperative area consent was reviewed and operative site was marked with a skin marker. An adductor canal pain catheter was placed by anesthesia in the preoperative area. Patient was then brought to the operating room and given preoperative antibiotics intravenously. A spinal anesthetic was administered by the anesthesia department. A tourniquet was placed on the upper thigh and the lower extremity was prepped and draped in usual sterile fashion. A gram of transexamic acid was given. A universal timeout was then performed which confirmed the patient's name, surgical site, ALLERGIES, and consent. The lower extremity was then exsanguinated and tourniquet was inflated to 250 mmHg. A standard and anterior midline approach to the knee was performed. The skin and subcutaneous tissue was dissected down to the patellar tendon. A medial parapatellar arthrotomy was then performed. The knee was then extended, the patellar was everted, and the knee was again flexed. Anterior horns of both menisci were excised, and a release was performed to the posterior medial aspect of the knee. On gross visual inspection, there was complete loss of articular cartilage in the medial and patellofemoral joint spaces. There was also significant cartilage damage in the lateral compartment. There were multiple periarticular osteophytes which were then removed with a Ronguer. The femoral canal was then opened with the appropriate drill, and the intramedullary femoral cutting guide was then placed and set for 5 of valgus. The distal femoral cutting block was then pinned in place, and the distal femur was then cut. The cutting block was then removed and the cut was checked for flatness. Next, the sizing guide was then placed and set for 3 external rotation based off of the epicondylar axis and Whites[place] line. After the femur was sized, the appropriate 4-in-1 cutting block was then pinned in place. The anterior condyles were cut without notching. The posterior and chamfer cuts were performed while protecting the collateral ligaments. The cutting block was then removed, and the femoral canal was plugged with autologous bone. Attention was then directed to the tibia. The remaining ACL was removed with a Ronguer, and the tibia was then gently subluxed forward with a large bent knee retractor. Any remaining menisci was excised. The posterior lateral corner was cauterized in order to cauterize the lateral geniculate artery. The extra medullary tibial cutting guide was then placed, set for the appropriate rotation, slope, and depth of resection. The proximal tibia cutting guide was then pinned in place. Proximal tibia was then cut and sized. Next trials were then placed with the appropriate-sized insert. The knee was able to fully extend and flex to 130 and was stable throughout all range of motion. The knee was then extended, patella everted. Patella was then measured, and then using an osteotomy guide, the patella was cut at the appropriate level. The patella was then measured and drilled and the patella trial was then placed. The knee was then taken through range of motion with the patella trial and the patella tracked normally. The knee was then extended patella trial was then removed and the patella was everted. Knee was then flexed and lug holes were drilled through the femoral trial and the femoral trial was then removed. The tibial was then exposed, and the tibial broach guide was then pinned in place after it was set for the appropriate rotation to allow for the most coverage without overhang. The tibia was then reamed and broached. The cut surfaces of bone were then irrigated with pulsatile lavage. The posterior structures were injected with the ropivacaine solution. The knee was also irrigated with Irrisept solution. The components were then opened, the cement was mixed, and the components were then cemented in place. The cement was allowed to harden with the knee in full extension. While the cement was hardening, the remaining soft tissues were then injected with a ropivacaine solution, which consisted of 246.25 mg of ropivacaine, 0.5 mg of epinephrine, 30 mg of Toradol, 80 g of clonidine, and 48.45 mL of sterile water, for a total of 100 mL of fluid injected. After the cemented hardened. The tourniquet was released, and hemostasis was obtained. A second gram of transexamic acid was given. The knee was again irrigated. The knee was again taken through range of motion and found to be stable throughout all range of motion of 0-130, and the patella tracked normally. The fascia was then closed with #2 strata fix suture. The subcutaneous tissue was closed with 3-0 Vicryl and 3-0 strata fix. Dermabond glue was used for the skin and placed with the knee in flexion. The patient was placed in a sterile silver dressing. Patient was then transferred to recovery room in stable condition. The floral assistant AGUSTÍN Navarro was required due the complexity surgery and the need for a skilled surgical dressing maker. She assisted in positioning, draping, retraction, and closure of the wound.
[2019-11-04] MEDS ORDERED: LACTATED RINGERS 1,000 ML IV ONE ×2 (10:55)
[2019-11-04 11:25] LABS: Glucose,Whole Blood 126 mg/dL (75-99)
--- NOTE | 2019-11-04 12:02 | XR ---
EXAMINATION TYPE: XR knee limited LT DATE OF EXAM: 11/04/2019 CLINICAL HISTORY: Left knee pain and arthritis status post total knee replacement. TECHNIQUE: Portable AP and crosstable lateral views of the left knee are obtained immediately postop eratively. COMPARISON: None FINDINGS: Metallic hardware from total left knee arthroplasty is seen and appears satisfactory in al ignment and position. There is evidence of recent surgery with diffuse subcutaneous gas and soft tis radha swelling noted. Protuberant medial osteophyte is seen. IMPRESSION: METALLIC HARDWARE FROM TOTAL LEFT KNEE ARTHROPLASTY IS SATISFACTORY IN ALIGNMENT.
[2019-11-04] MEDS: SODIUM CHLORIDE 0.9% 1,000 ML IV SCH (15:19)
[2019-11-04] MEDS: ASPIRIN 325 MG TAB PO SCH ×2 (15:19→20:13)
[2019-11-04] MEDS: MELOXICAM 7.5 MG TAB PO SCH (15:19)
[2019-11-04] MEDS ORDERED: LORazepam 2 MG/ML INJ IV PRN ×3 (16:08)
--- NOTE | 2019-11-04 16:10 | P.CONS ---
History of Present Illness - Reason for Consult Consult date: 11/04/19 DM 2 Requesting physician: Jeff Mathew - Chief Complaint knee pain - History of Present Illness patient is a 73-year-old malewith past medical history of hypert ension, dyslipidemia, arthritis, diabetes mellitus type 2, coronary artery disease who presented for elective left total knee arthroplasty. He underwent the procedure on 11/04 without any immediate postoperative complications. We were consulted for diabetic and hypertensive management. Patient seen and examined at bedside. Currently his pain is well controlled. No nausea, vomiting, lightheadedness, dizziness, or shortness of breath. Was having increasing left knee pain and new he had significant osteoarthritis therefore he decided to present with left total knee arthroplasty. He denies any recent cough, cold, fever, flu. He has been his normal state of health. Last hemoglobin A1c was approximately 2 months was 7.1. Review of Systems Pertinent positives and negatives as discussed in HPI, a complete review of systems was performed and all other systems are negative. Past Medical History Past Medical History: Diabetes Mellitus, Hyperlipidemia, Hypertension, Myocardial Infarction ([place]) Additional Past Medical History / Comment(s): superficial phlibitis bilaterally ,Hepatitis C, hypertension, coronary artery disease, history of MRSA, arthritis Last Myocardial Infarction Date:: unknown History of Any Multi-Drug Resistant Organisms: MRSA Year Discovered:: 2000 MDRO Source:: left hip Past Surgical History: Appendectomy, Heart Catheterization, Joint Replacement, Orthopedic Surgery Additional Past Surgical History / Comment(s): Left total hip arthroplasty 2000 , surgery for varicose veins, left hip surgery as teen, right total hip arthroplasty 11/04/17, right knee replacement Past Anesthesia/Blood Transfusion Reactions: No Reported Reaction Additional Past Anesthesia/Blood Transfusion Reaction / Comm: no problems with prior blood transfusion Past Psychological History: Depression Smoking Status: Current every day smoker Past Alcohol Use History: Daily Additional Past Alcohol Use History / Comment(s): Drinks 2 beers daily Past Drug Use History: None Reported Additional Drug Use History / Comment(s): Lives alone, was using 2 canes prior to admission - Past Family History Mother Family Medical History: Cancer Father Family Medical History: Deep Vein Thrombosis (DVT) Brother(s) Family Medical History: Hypertension Medications and Allergies Home Medications Medication Instructions Recorded Confirmed Type Ascorbic Acid [Vitamin C] 500 mg PO DAILY 10/27/17 11/02/19 History FLUoxetine HCL [PROzac] 60 mg PO QAM 10/27/17 11/02/19 History Furosemide [Lasix] 40 mg PO QAM 10/27/17 11/02/19 History Losartan [Cozaar] 25 mg PO QAM 10/27/17 11/02/19 History Lovastatin [Mevacor] 20 mg PO DAILY 10/27/17 11/02/19 History Multivitamins, Thera [Multivitamin 1 tab PO DAILY 10/27/17 11/02/19 History (formulary)] metFORMIN HCL [Glucophage] 500 mg PO BID-W/MEALS tab 05/15/18 11/02/19 Rx Aspirin [Adult Low Dose Aspirin EC] 81 mg PO DAILY 11/02/19 11/02/19 History Allergies Allergy/AdvReac Type Severity Reaction Status Date / Time adhesive tape Allergy blisters Verified 11/04/19 08:03 Penicillins Allergy Swelling Verified 11/04/19 08:03 Physical Exam Osteopathic Statement: *. No significant issues noted on an osteopathic structural exam other than those noted in the History and Physical/Consult. Vitals: Vital Signs Temp Pulse Pulse Resp BP BP Pulse Ox 11/04/19 12:55 56 L 16 143/73 97 11/04/19 12:40 66 16 147/74 96 11/04/19 12:25 56 L 16 130/66 98 11/04/19 12:10 69 16 137/68 98 11/04/19 11:55 70 16 138/71 95 11/04/19 11:40 53 L 16 155/80 93 L 11/04/19 11:25 48 L 16 156/71 92 L 11/04/19 11:10 51 L 16 156/71 95 11/04/19 10:55 97 F L 64 16 154/70 99 11/04/19 08:04 97.6 F 91 16 174/84 99 Intake and Output 11/04/19 11/04/19 11/04/19 06:59 14:59 22:59 Intake Total 1300 Output Total 650 Balance 650 Intake: IV 1300 Output: Urine 600 Estimated Blood Loss 50 Other: # Voids 1 Weight 136.7 kg General: non toxic, no distress, appears at stated age, Obese Derm: no unusual rashes/lesions no unusual ecchymoses, warm, dry Head: atraumatic, normocephalic, symmetric Eyes: EOMI, no lid lag, anicteric sclera, pupils equal round reactive to light ENT: Nose and ears atraumatic, no thrush, no pharyngeal erythema Neck: No thyromegaly, no cervical lymphadenopathy, trachea midline, supple Mouth: no lip lesion, mucus membranes moist Cardiovascular: S1S2 reg, no murmur, positive posterior tibial pulse bilateral, no edema, capillary refill less than 2 seconds Lungs: Decreased bs bilateral, no rhonchi, no rales , no accessory muscle use Abdominal: soft, nontender to palpation, no guarding, no appreciable organomegaly, normal bowel sounds Ext: no gross muscle atrophy, muscle strength 5 out of 5 in upper extremities grossly, no contractures, Neuro: CN II-XI grossly intact, light touch intact all 4 extremities, finger to nose within normal limits, Psych: Alert, oriented, appropriate affect Results Labs: Abnormal Lab Results - Last 24 Hours (Table) 11/04/19 11/04/19 Range/Units 08:14 11:22 POC Glucose (mg/dL) 124 H 126 H (75-99) mg/dL Assessment and Plan Assessment: patient is a 73-year-old male s/p L TKA tolerated the procedure well DM 2 - A1C 7.1 - hold metformin - SSI - follow BS HTN - resume home cozaar, lasix HLD - statin Obesity with BMI 43.2 - structured outpatient weight loss Tobacco abuse - cessation - nicotine replacement Daily alcohol use - CIWA - Thiamine - folic acid Thank you for allowing us to participate in the care of this pleasant patient. Do not hesitate to contact us with questions. Someone can be reached from the [facility] hospitalist group all hours of the day at [phone] or via perfect serve.
[2019-11-04 16:55] LABS: Glucose,Whole Blood 202 mg/dL (75-99)
[2019-11-04] MEDS: INSULIN ASPART (NovoLOG) 100 UNIT/ML VIAL SQ SCH ×2 (17:06→20:14)
[2019-11-04] MEDS: THIAMINE 100 MG TAB PO SCH (17:07)
[2019-11-04] MEDS: ceFAZolin 3 GM in SODIUM CHLORIDE 0.9% 100 ML IVPB SCH (17:10)
[2019-11-04 20:08] LABS: Glucose,Whole Blood 218 mg/dL (75-99)
[2019-11-04] MEDS: SENNOSIDES-DOCUSATE SODIUM 1 EACH TAB PO SCH (20:13)
--- NOTE | 2019-11-04 21:17 | P.ANPRN ---
Procedure Note - Anesthesia - Nerve Block Performed Left Adductor Canal Infusion Time Out Performed: Yes Date of Procedure: 11/04/19 Procedure Start Time: : Procedure Stop Time: :40 Location of Patient: PreOp Indication: Acute Post-Operative Pain, Requested by Surgeon Sedation Type: Sedate with meaningful contact maintained Preparation: Sterile Prep, Sterile Dressing Position: Supine Catheter: Indwelling Needle Types: Pajunk Needle Gauge: 21, Other (see comment) Ultrasound used to visualize needle placement: Yes Ultrasound used to observe medication spread: Yes Blood Aspirated: No Pain Paresthesia on Injection Noted: No Resistance on Injection: Normal Image Stored and Saved: Yes Events: Uneventful and Well Tolerated (ropi .5% 20cc plus dexamethasone 4mg)
[2019-11-05] MEDS: ceFAZolin 3 GM in SODIUM CHLORIDE 0.9% 100 ML IVPB SCH (00:25)
[2019-11-05] MEDS: SODIUM CHLORIDE 0.9% 1,000 ML IV SCH ×2 (00:29→22:09)
[2019-11-05] MEDS: LACTATED RINGERS 1,000 ML IV SCH (02:02)
[2019-11-05] MEDS: HYDROcodone/APAP 5-325MG 1 EACH TAB PO PRN ×3 (05:41→18:51)
[2019-11-05 06:58] LABS: Glucose,Whole Blood 137 mg/dL (75-99)
[2019-11-05] MEDS: FOLIC ACID 1 MG TAB PO SCH (08:14)
[2019-11-05] MEDS: ASPIRIN 325 MG TAB PO SCH ×2 (08:14→22:25)
[2019-11-05] MEDS: THIAMINE 100 MG TAB PO SCH ×2 (08:15→16:59)
[2019-11-05] MEDS: ATORVASTATIN 10 MG TAB PO SCH (08:15)
[2019-11-05] MEDS: NICOTINE 21MG/24HR PATCH TRANSDERM SCH (08:15)
[2019-11-05] MEDS: FLUoxetine HCL 20 MG CAP PO SCH (08:15)
[2019-11-05] MEDS: MELOXICAM 7.5 MG TAB PO SCH (08:15)
[2019-11-05] MEDS: INSULIN ASPART (NovoLOG) 100 UNIT/ML VIAL SQ SCH ×4 (08:15→22:10)
[2019-11-05] MEDS: MULTIVITAMINS, THERA 1 EACH TAB PO SCH (08:15)
[2019-11-05] MEDS: FUROSEMIDE 40 MG TAB PO SCH (08:15)
[2019-11-05] MEDS: ASCORBIC ACID 500 MG TAB PO SCH (08:15)
[2019-11-05] MEDS: LOSARTAN 25 MG TAB PO SCH (08:15)
--- NOTE | 2019-11-05 08:16 | P.PN ---
Subjective Progress Note Date: 11/05/19 This is a 73-year-old male who is status post left total knee arthroplasty. This is postoperative day #1 and patient is seen and evaluated at bedside with Dr. Jeff Mathew. Patient states that his pain is well controlled and he has been up and walking. Patient denies any fever/chills, numbness, weakness, tingling, abdominal pain, shortness of breath or chest pain. Objective - Vital Signs Vital signs: Vital Signs Temp 98.3 F 11/05/19 07:00 Pulse 66 11/05/19 07:00 Resp 16 11/05/19 07:00 BP 155/77 11/05/19 07:00 Pulse Ox 94 L 11/05/19 07:00 Intake & Output 11/04/19 11/05/19 11/05/19 18:59 06:59 18:59 Intake Total 1300 140 Output Total 950 400 Balance 350 -260 Weight 136.7 kg Intake: IV 1300 Intake, IV Titration 140 Amount Sodium Chloride 0.9% 1, 140 000 ml @ 70 mls/hr IV . [id number] [facility] Rx#:[id number] Output: Urine 900 400 Estimated Blood Loss 50 Other: # Voids 1 - Exam Vital signs are stable. Patient is in no acute distress and is alert and oriented 3. Calf is soft and nontender to palpation. Dressing is clean, dry, and intact. Patient has full foot and ankle motion without pain or difficulty. Neurovascular status and circulatory status are intact. - Labs Labs: Abnormal Lab Results - Last 24 Hours (Table) 11/04/19 11/04/19 11/04/19 Range/Units 08:14 11:22 16:53 POC Glucose (mg/dL) 124 H 126 H 202 H (75-99) mg/dL 11/04/19 11/05/19 Range/Units 20:06 06:57 POC Glucose (mg/dL) 218 H 137 H (75-99) mg/dL Assessment and Plan (1) Osteoarthritis of left knee Current Visit: Yes Status: Acute Code(s): M17.12 - UNILATERAL PRIMARY OSTEOARTHRITIS, LEFT KNEE SNOMED Code(s): 631232735290380 (2) S/P total knee arthroplasty Current Visit: No Status: Acute Code(s): Z96.659 - PRESENCE OF UNSPECIFIED ARTIFICIAL KNEE JOINT SNOMED Code(s): 8624974662448 Plan: #1 Continue with routine postoperative care and pain control, leave dressing in place for ten days. #2 Anticoagulation with aspirin. #3 Physical therapy and CPM today. #4 Appreciate input from internal medicine. #5 Patient is awaiting ECF placement at [facility].
--- NOTE | 2019-11-05 08:35 | P.PN ---
Progress Note - Text 11/05 812am 73-year-old male status post total knee replacement by Dr. Aguilar height off. Patient has an On-Q pump for postop pain control with solution running at 8 mL an hour with a VAS of 3. Patient was ambulating without. Plan to continue On-Q pump infusion
[2019-11-05 08:43] LABS: Basophils % (A) 0 %; Eosinophils # (A) 0.1 k/uL (0-0.7); Eosinophils % (A) 1 %; HCT 37.8 % (39.0-53.0); HGB 12.6 gm/dL (13.0-17.5); Lymphocytes # (A) 1.5 k/uL (1.0-4.8); Lymphocytes % (A) 18 %; MCH 35.1 pg (25.0-35.0); MCHC 33.3 g/dL (31.0-37.0); MCV 105.4 fL (80.0-100.0); Macrocytosis Moderate; Mean Platelet Volume 7.3; Monocytes # (A) 0.6 k/uL (0-1.0); Monocytes % (A) 7 %; Neutrophils # (A) 5.7 k/uL (1.3-7.7); Neutrophils % (A) 71 %; Platelet Count 224 k/uL (150-450); RBC 3.58 m/uL (4.30-5.90); RDW 14.7 % (11.5-15.5)
--- NOTE | 2019-11-05 12:05 | P.PN ---
Subjective Progress Note Date: 11/05/19 Principal diagnosis: Knee pain Doing well. No chest pain, no sob. No n/v. Objective - Vital Signs Vital signs: Vital Signs Temp 98.3 F 11/05/19 07:00 Pulse 66 11/05/19 08:00 Resp 16 11/05/19 08:00 BP 155/77 11/05/19 07:00 Pulse Ox 94 L 11/05/19 07:00 Intake & Output 11/04/19 11/05/19 11/05/19 18:59 06:59 18:59 Intake Total 1300 140 Output Total 950 400 Balance 350 -260 Weight 136.7 kg Intake: IV 1300 Intake, IV Titration 140 Amount Sodium Chloride 0.9% 1, 140 000 ml @ 70 mls/hr IV . [id number] [facility] Rx#:[id number] Output: Urine 900 400 Estimated Blood Loss 50 Other: Voiding Method Urinal # Voids 1 - Exam General: non toxic, no distress, appears at stated age, Obese Derm: no unusual rashes/lesions no unusual ecchymoses, warm, dry Head: atraumatic, normocephalic, symmetric Eyes: EOMI, no lid lag, anicteric sclera, pupils equal round reactive to light ENT: Nose and ears atraumatic, no thrush, no pharyngeal erythema Neck: No thyromegaly, no cervical lymphadenopathy, trachea midline, supple Mouth: no lip lesion, mucus membranes moist Cardiovascular: S1S2 reg, no murmur, positive posterior tibial pulse bilateral, no edema, capillary refill less than 2 seconds Lungs: Decreased bs bilateral, no rhonchi, no rales , no accessory muscle use Abdominal: soft, nontender to palpation, no guarding, no appreciable organomegaly, normal bowel sounds Ext: no gross muscle atrophy, muscle strength 5 out of 5 in upper extremities grossly, no contractures, Neuro: CN II-XI grossly intact, light touch intact all 4 extremities, finger to nose within normal limits, Psych: Alert, oriented, appropriate affect - Labs CBC & Chem 7: 11/05/19 08:07 Labs: Abnormal Lab Results - Last 24 Hours (Table) 11/04/19 11/04/19 11/05/19 Range/Units 16:53 20:06 06:57 RBC (4.30-5.90) m/uL Hgb (13.0-17.5) gm/dL Hct (39.0-53.0) % MCV (80.0-100.0) fL MCH (25.0-35.0) pg POC Glucose (mg/dL) 202 H 218 H 137 H (75-99) mg/dL 11/05/19 Range/Units 08:07 RBC 3.58 L (4.30-5.90) m/uL Hgb 12.6 L (13.0-17.5) gm/dL Hct 37.8 L (39.0-53.0) % MCV 105.4 H (80.0-100.0) fL MCH 35.1 H (25.0-35.0) pg POC Glucose (mg/dL) (75-99) mg/dL Assessment and Plan Plan: DM 2 - A1C 7.1 - hold metformin - SSI - follow BS HTN - resume home cristian chamorro HLD - statin Obesity with BMI 43.2 - structured outpatient weight loss Tobacco abuse - cessation - nicotine replacement Daily alcohol use - CIWA - Thiamine - folic acid
[2019-11-05 12:27] LABS: Glucose,Whole Blood 122 mg/dL (75-99)
[2019-11-05 16:44] LABS: Glucose,Whole Blood 139 mg/dL (75-99)
[2019-11-05 21:10] LABS: Glucose,Whole Blood 156 mg/dL (75-99)
[2019-11-05] MEDS: SENNOSIDES-DOCUSATE SODIUM 1 EACH TAB PO SCH (22:24)
[2019-11-06] MEDS: HYDROcodone/APAP 5-325MG 1 EACH TAB PO PRN ×3 (05:09→18:18)
[2019-11-06] MEDS: SODIUM CHLORIDE 0.9% 1,000 ML IV SCH ×2 (05:21→16:21)
[2019-11-06] MEDS: LACTATED RINGERS 1,000 ML IV SCH (06:27)
[2019-11-06 07:21] LABS: Glucose,Whole Blood 152 mg/dL (75-99)
[2019-11-06] MEDS: INSULIN ASPART (NovoLOG) 100 UNIT/ML VIAL SQ SCH ×4 (07:40→20:24)
[2019-11-06] MEDS: MULTIVITAMINS, THERA 1 EACH TAB PO SCH (07:45)
[2019-11-06] MEDS: MELOXICAM 7.5 MG TAB PO SCH (07:45)
[2019-11-06] MEDS: FLUoxetine HCL 20 MG CAP PO SCH (07:45)
[2019-11-06] MEDS: LOSARTAN 25 MG TAB PO SCH (07:45)
[2019-11-06] MEDS: ASPIRIN 325 MG TAB PO SCH ×2 (07:45→20:22)
[2019-11-06] MEDS: FUROSEMIDE 40 MG TAB PO SCH (07:45)
[2019-11-06] MEDS: THIAMINE 100 MG TAB PO SCH ×2 (07:46→16:20)
[2019-11-06] MEDS: ATORVASTATIN 10 MG TAB PO SCH (07:46)
[2019-11-06] MEDS: ASCORBIC ACID 500 MG TAB PO SCH (07:46)
[2019-11-06] MEDS: FOLIC ACID 1 MG TAB PO SCH (07:46)
[2019-11-06] MEDS: NICOTINE 21MG/24HR PATCH TRANSDERM SCH (07:46)
--- NOTE | 2019-11-06 11:36 | P.PN ---
Subjective Progress Note Date: 11/06/19 Principal diagnosis: Knee pain Doing well, has slight pain in his knee but controlled with pain medication. No chest pain or shortness of breath. Objective - Vital Signs Vital signs: Vital Signs Temp 97.7 F 11/06/19 07:23 Pulse 53 L 11/06/19 07:23 Resp 17 11/06/19 07:23 BP 150/64 11/06/19 07:23 Pulse Ox 97 11/06/19 07:23 Intake & Output 11/05/19 11/06/19 11/06/19 18:59 06:59 18:59 Intake Total 420 Output Total 950 Balance 420 -950 Intake: Intake, IV Titration 420 Amount Sodium Chloride 0.9% 1, 420 000 ml @ 70 mls/hr IV . [id number] [facility] Rx#:[id number] Output: Urine 950 Other: Voiding Method Urinal Urinal - Exam General: non toxic, no distress, appears at stated age, Obese Derm: no unusual rashes/lesions no unusual ecchymoses, warm, dry Head: atraumatic, normocephalic, symmetric Eyes: EOMI, no lid lag, anicteric sclera, pupils equal round reactive to light ENT: Nose and ears atraumatic, no thrush, no pharyngeal erythema Neck: No thyromegaly, no cervical lymphadenopathy, trachea midline, supple Mouth: no lip lesion, mucus membranes moist Cardiovascular: S1S2 reg, no murmur, positive posterior tibial pulse bilateral, no edema, capillary refill less than 2 seconds Lungs: Decreased bs bilateral, no rhonchi, no rales , no accessory muscle use Abdominal: soft, nontender to palpation, no guarding, no appreciable organomegaly, normal bowel sounds Ext: no gross muscle atrophy, muscle strength 5 out of 5 in upper extremities grossly, no contractures, Neuro: CN II-XI grossly intact, light touch intact all 4 extremities, finger to nose within normal limits, Psych: Alert, oriented, appropriate affect - Labs CBC & Chem 7: 11/05/19 08:07 Labs: Abnormal Lab Results - Last 24 Hours (Table) 11/05/19 11/05/19 11/05/19 Range/Units 12:26 16:42 20:58 POC Glucose (mg/dL) 122 H 139 H 156 H (75-99) mg/dL 11/06/19 Range/Units 07:04 POC Glucose (mg/dL) 152 H (75-99) mg/dL Assessment and Plan Plan: DM 2 - A1C 7.1 - hold metformin - SSI, blood sugar controlled, we'll continue to monitor HTN - resume home cristian chamorro HLD - statin Obesity with BMI 43.2 - structured outpatient weight loss Tobacco abuse - cessation - nicotine replacement Daily alcohol use - No signs of withdrawal - CIWA - Thiamine - folic acid
[2019-11-06 11:50] LABS: Glucose,Whole Blood 121 mg/dL (75-99)
[2019-11-06 16:21] LABS: Glucose,Whole Blood 120 mg/dL (75-99)
--- NOTE | 2019-11-06 17:06 | P.PN ---
Subjective Progress Note Date: 11/06/19 Principal diagnosis: S/P Left TKA Patient is seen at bedside this morning. He is postop day #2 from left total knee arthroplasty.. He has pain at the surgical site as expected but denies any new complaints. He denies numbness, tingling or calf pain. Review of systems is negative for fever, chills, chest pain, shortness of breath or other Objective - Vital Signs Vital signs: Vital Signs Temp 98.3 F 11/06/19 13:40 Pulse 76 11/06/19 13:40 Resp 17 11/06/19 13:40 BP 144/70 11/06/19 13:40 Pulse Ox 95 11/06/19 13:40 Intake & Output 11/05/19 11/06/19 11/06/19 18:59 06:59 18:59 Intake Total 420 Output Total 950 500 Balance 420 -950 -500 Intake: Intake, IV Titration 420 Amount Sodium Chloride 0.9% 1, 420 000 ml @ 70 mls/hr IV . [id number] [facility] Rx#:[id number] Output: Urine 950 500 Other: Voiding Method Urinal Urinal # Voids 2 - Exam Inspection reveals a benign surgical wound. There is no active bleeding or drainage. Neurovascular status is intact throughout the lower extremity with motor and sensation fully intact. Calf is soft and nontender. 2+ dorsalis pedis pulse and less than 2 second cap refill is present. - Constitutional General appearance: Present: no acute distress - Labs CBC & Chem 7: 11/05/19 08:07 Labs: Abnormal Lab Results - Last 24 Hours (Table) 11/05/19 11/06/19 11/06/19 Range/Units 20:58 07:04 11:47 POC Glucose (mg/dL) 156 H 152 H 121 H (75-99) mg/dL 11/06/19 Range/Units 16:19 POC Glucose (mg/dL) 120 H (75-99) mg/dL Assessment and Plan (1) Osteoarthritis of left knee Narrative/Plan: He will continue with routine postop orthopedic protocol including pain management, wound care, PT, DVT prophylaxis and medical management. Expect that he will transfer to [facility] on Friday Current Visit: Yes Status: Acute Priority: Medium Code(s): M17.12 - UNILATERAL PRIMARY OSTEOARTHRITIS, LEFT KNEE SNOMED Code(s): 834174631685020 (2) S/P total knee arthroplasty Current Visit: No Status: Acute Priority: Medium Code(s): Z96.659 - PRESENCE OF UNSPECIFIED ARTIFICIAL KNEE JOINT SNOMED Code(s): 8735338219193 Time with Patient: Less than 30
[2019-11-06] MEDS: SENNOSIDES-DOCUSATE SODIUM 1 EACH TAB PO SCH (20:22)
[2019-11-06 20:24] LABS: Glucose,Whole Blood 138 mg/dL (75-99)
[2019-11-07] MEDS: HYDROcodone/APAP 5-325MG 1 EACH TAB PO PRN ×2 (05:23→15:48)
[2019-11-07] MEDS: LACTATED RINGERS 1,000 ML IV SCH ×2 (05:24→20:19)
[2019-11-07 06:48] LABS: Basophils % (A) 0 %; Eosinophils # (A) 0.2 k/uL (0-0.7); Eosinophils % (A) 3 %; HCT 34.6 % (39.0-53.0); HGB 11.5 gm/dL (13.0-17.5); Lymphocytes # (A) 1.4 k/uL (1.0-4.8); Lymphocytes % (A) 23 %; MCH 34.8 pg (25.0-35.0); MCHC 33.3 g/dL (31.0-37.0); MCV 104.6 fL (80.0-100.0); Macrocytosis Moderate; Mean Platelet Volume 7.4; Monocytes # (A) 0.4 k/uL (0-1.0); Monocytes % (A) 7 %; Neutrophils % (A) 65 %; Platelet Count 199 k/uL (150-450); RBC 3.31 m/uL (4.30-5.90); RDW 14.8 % (11.5-15.5); WBC 6.1 k/uL (3.8-10.6)
[2019-11-07 06:53] LABS: Glucose,Whole Blood 140 mg/dL (75-99)
[2019-11-07] MEDS: THIAMINE 100 MG TAB PO SCH ×2 (07:22→17:32)
[2019-11-07] MEDS: INSULIN ASPART (NovoLOG) 100 UNIT/ML VIAL SQ SCH ×4 (07:22→20:18)
[2019-11-07] MEDS: NICOTINE 21MG/24HR PATCH TRANSDERM SCH (07:22)
[2019-11-07] MEDS: ASPIRIN 325 MG TAB PO SCH ×2 (09:47→20:18)
[2019-11-07] MEDS: ATORVASTATIN 10 MG TAB PO SCH (09:47)
[2019-11-07] MEDS: MULTIVITAMINS, THERA 1 EACH TAB PO SCH (09:48)
[2019-11-07] MEDS: FLUoxetine HCL 20 MG CAP PO SCH (09:48)
[2019-11-07] MEDS: LOSARTAN 25 MG TAB PO SCH (09:48)
[2019-11-07] MEDS: MELOXICAM 7.5 MG TAB PO SCH (09:48)
[2019-11-07] MEDS: FUROSEMIDE 40 MG TAB PO SCH (09:48)
[2019-11-07] MEDS: ASCORBIC ACID 500 MG TAB PO SCH (09:48)
[2019-11-07] MEDS: FOLIC ACID 1 MG TAB PO SCH (09:48)
[2019-11-07] MEDS: SODIUM CHLORIDE 0.9% 1,000 ML IV SCH ×2 (09:51→20:19)
--- NOTE | 2019-11-07 11:41 | P.PN ---
Subjective Progress Note Date: 11/07/19 Principal diagnosis: S/P Left TKA Patient is seen at bedside this morning. He is postop day #3 from left total knee arthroplasty. He has pain at the surgical site as expected but denies any new complaints. He denies numbness, tingling or calf pain. Review of systems is negative for fever, chills, chest pain, shortness of breath or other Objective - Vital Signs Vital signs: Vital Signs Temp 98.4 F 11/07/19 07:00 Pulse 64 11/07/19 07:00 Resp 16 11/07/19 07:00 BP 152/77 11/07/19 07:00 Pulse Ox 97 11/07/19 07:00 Intake & Output 11/06/19 11/07/19 11/07/19 18:59 06:59 18:59 Intake Total 296 Output Total 500 300 Balance -500 -4 Intake: Oral 296 Output: Urine 500 300 Other: Voiding Method Toilet Toilet Urinal Urinal # Voids 2 2 - Labs CBC & Chem 7: 11/07/19 06:14 Labs: Abnormal Lab Results - Last 24 Hours (Table) 11/06/19 11/06/19 11/06/19 Range/Units 11:47 16:19 20:13 RBC (4.30-5.90) m/uL Hgb (13.0-17.5) gm/dL Hct (39.0-53.0) % MCV (80.0-100.0) fL POC Glucose (mg/dL) 121 H 120 H 138 H (75-99) mg/dL 11/07/19 11/07/19 Range/Units 06:14 06:50 RBC 3.31 L (4.30-5.90) m/uL Hgb 11.5 L (13.0-17.5) gm/dL Hct 34.6 L (39.0-53.0) % MCV 104.6 H (80.0-100.0) fL POC Glucose (mg/dL) 140 H (75-99) mg/dL Assessment and Plan (1) Osteoarthritis of left knee Status: Acute Priority: Medium Code(s): M17.12 - UNILATERAL PRIMARY OSTEOARTHRITIS, LEFT KNEE SNOMED Code(s): 503618721851801 (2) S/P total knee arthroplasty Status: Acute Priority: Medium Code(s): Z96.659 - PRESENCE OF UNSPECIFIED ARTIFICIAL KNEE JOINT SNOMED Code(s): 9154593461429
[2019-11-07 11:44] LABS: Glucose,Whole Blood 108 mg/dL (75-99)
[2019-11-07 16:56] LABS: Glucose,Whole Blood 96 mg/dL (75-99)
[2019-11-07 20:07] LABS: Glucose,Whole Blood 130 mg/dL (75-99)
[2019-11-07] MEDS: SENNOSIDES-DOCUSATE SODIUM 1 EACH TAB PO SCH (20:18)
[2019-11-08] MEDS: HYDROcodone/APAP 5-325MG 1 EACH TAB PO PRN ×2 (05:14→15:44)
[2019-11-08 07:00] LABS: Glucose,Whole Blood 131 mg/dL (75-99)
[2019-11-08] MEDS: INSULIN ASPART (NovoLOG) 100 UNIT/ML VIAL SQ SCH ×2 (07:12→12:07)
[2019-11-08 08:15] VITALS: RESP 16
[2019-11-08] MEDS: NICOTINE 21MG/24HR PATCH TRANSDERM SCH ×2 (08:32→08:36)
[2019-11-08] MEDS: FLUoxetine HCL 20 MG CAP PO SCH (08:33)
[2019-11-08] MEDS: ASPIRIN 325 MG TAB PO SCH (08:33)
[2019-11-08] MEDS: LOSARTAN 25 MG TAB PO SCH (08:33)
[2019-11-08] MEDS: MELOXICAM 7.5 MG TAB PO SCH (08:34)
[2019-11-08] MEDS: FOLIC ACID 1 MG TAB PO SCH (08:34)
[2019-11-08] MEDS: FUROSEMIDE 40 MG TAB PO SCH (08:34)
[2019-11-08] MEDS: THIAMINE 100 MG TAB PO SCH (08:34)
[2019-11-08] MEDS: ATORVASTATIN 10 MG TAB PO SCH (08:35)
[2019-11-08] MEDS: MULTIVITAMINS, THERA 1 EACH TAB PO SCH (08:35)
[2019-11-08] MEDS: ASCORBIC ACID 500 MG TAB PO SCH (08:35)
--- NOTE | 2019-11-08 09:01 | P.DS ---
Providers Expected date of discharge: 11/08/19 Attending physician: Jeff Mathew Consults: 11/04/19 08:53 Consult Physician Routine Consulting Provider: [facility] Consult Reason/Comments: medical management Do you want consulting provider notified?: Yes Primary care physician: Alfredo Velásquez MD - Discharge Diagnosis(es) (1) Osteoarthritis of left knee Status: Acute Priority: Medium (2) S/P total knee arthroplasty Status: Acute Priority: Medium Hospital Course: This is a 73-year-old male with known history of degenerative arthritis of the left knee. The patient presents for evaluation. After discussion and consideration patient elects to proceed with total knee arthroplasty. The patient is seen preoperatively by Dr. Mathew and medically cleared for surgery by their primary care physician. Patient is admitted to [facility] on 11/04/2019 for total knee arthroplasty. The procedures performed without complication or sequelae. The patient is doing well postoperatively. Labs and vital signs are stable on day o f discharge. On day of discharge patient's knee incision is healing well. There is minimal erythema. There is no drainage noted at this time. There is minimal soft tissue swelling to the knee. Patient has full foot and ankle motion without difficulty or pain. Calf is soft and nontender to palpation. Neurovascular status to the left lower extremity is intact. Patient is discharged to rehab in good condition. Opioid start talking form is reviewed and signed at patient bedside. Please see med rec for accurate list of home medications. Plan - Discharge Summary Discharge Rx Participant: No New Discharge Prescriptions: New Aspirin 325 mg PO BID #60 tab HYDROcodone/APAP 5-325MG [[place] 5-325] 1 - 2 tab PO Q6HR PRN #56 tab PRN Reason: Pain Sennosides [Senokot] 2 tab PO DAILY PRN #60 tablet PRN Reason: Constipation Continue Multivitamins, Thera [Multivitamin (formulary)] 1 tab PO DAILY Ascorbic Acid [Vitamin C] 500 mg PO DAILY Lovastatin [Mevacor] 20 mg PO DAILY Furosemide [Lasix] 40 mg PO QAM FLUoxetine HCL [PROzac] 60 mg PO QAM Losartan [Cozaar] 25 mg PO QAM metFORMIN HCL [Glucophage] 500 mg PO BID-W/MEALS tab No Action Aspirin [Adult Low Dose Aspirin EC] 81 mg PO DAILY Discharge Medication List Ascorbic Acid [Vitamin C] 500 mg PO DAILY 10/27/17 [History] FLUoxetine HCL [PROzac] 60 mg PO QAM 10/27/17 [History] Furosemide [Lasix] 40 mg PO QAM 10/27/17 [History] Losartan [Cozaar] 25 mg PO QAM 10/27/17 [History] Lovastatin [Mevacor] 20 mg PO DAILY 10/27/17 [History] Multivitamins, Thera [Multivitamin (formulary)] 1 tab PO DAILY 10/27/17 [History] metFORMIN HCL [Glucophage] 500 mg PO BID-W/MEALS tab 05/15/18 [Rx] Aspirin [Adult Low Dose Aspirin EC] 81 mg PO DAILY 11/02/19 [History] Aspirin 325 mg PO BID #60 tab 11/05/19 [Rx] HYDROcodone/APAP 5-325MG [[place] 5-325] 1 - 2 tab PO Q6HR PRN #56 tab 11/05/19 [Rx] Sennosides [Senokot] 2 tab PO DAILY PRN #60 tablet 11/05/19 [Rx] Follow up Appointment(s)/Referral(s): Alvino Og, RICKY [REFERRING] - 1 Week Jeff Mathew DO [Doctor of Osteopathic Medicine] - 2 Weeks Ambulatory/Diagnostic Orders: Continuous Passive Motion (CPM) Machine [DME.AMB1] Time Frame: 3 Weeks, Location: None Selected Activity/Diet/Wound Care/Special Instructions: Weightbearing as tolerated with a walker. CPM 5-6h daily. Leave dressing intact. May be removed by home care nurse or by patient in 10 days. May shower with dressing on. Recommend use of compression stockings daily for at least 2 weeks during the day to help prevent swelling and blood clots. May remove at night before sleeping. Please follow up with [facility] and call with any questions or concerns, . Discharge Disposition: TRANSFER TO SNF/ECF
[2019-11-08 11:44] LABS: Glucose,Whole Blood 113 mg/dL (75-99)
[2019-11-08] MEDS: SODIUM CHLORIDE 0.9% 1,000 ML IV SCH (12:07)
[2019-11-08 15:36] VITALS: BP 145/78; PULSE 61; TEMP 97.9
== END 2019-11-08 16:51 ==
LOC: OR 07:46 → 4SSUR 12:44 → OR 11-08 16:51
PROVIDERS: ATTEND Orthopaedic Surgery
DX: M17.12 Unilateral primary osteoarthritis, left knee (principal); B19.20 Unspecified viral hepatitis C without hepatic coma; E11.9 Type 2 diabetes mellitus without complications; E66.9 Obesity, unspecified; E78.5 Hyperlipidemia, unspecified; F17.200 Nicotine dependence, unspecified, uncomplicated; F32.9 Major depressive disorder, single episode, unspecified; I10 Essential (primary) hypertension; I25.10 Atherosclerotic heart disease of native coronary artery without angina pectoris; I25.2 Old myocardial infarction; Z68.41 Body mass index [BMI] 40.0-44.9, adult; Z79.82 Long term (current) use of aspirin; Z82.49 Family history of ischemic heart disease and other diseases of the circulatory system; Z86.14 Personal history of Methicillin resistant Staphylococcus aureus infection; Z88.0 Allergy status to penicillin; Z96.652 Presence of left artificial knee joint; Z79.84 Long term (current) use of oral hypoglycemic drugs; Z79.899 Other long term (current) drug therapy; Z88.8 Allergy status to other drugs, medicaments and biological substances; Z16.24 Resistance to multiple antibiotics
CPT/HCPCS: 27447; 97116; 97161; 97530; 97535; 97166; 64448; 76942; 85025; 88300; 73560; C1713; C1776; S4990 ×2; J2250; J0171; J0690 ×2; J1885; J2795 ×2; J0735

== ENCOUNTER → 2021-10-01 | Outpatient (CLI) | payer MEDICARE, OTHER ==
[2021-10-01 11:22] LABS: Basophils % (A) 0 %; Eosinophils # (A) 0.1 k/uL (0-0.7); Eosinophils % (A) 2 %; HCT 43.6 % (39.0-53.0); HGB 15.2 gm/dL (13.0-17.5); Lymphocytes # (A) 1.6 k/uL (1.0-4.8); Lymphocytes % (A) 22 %; MCH 36.7 pg (25.0-35.0); Macrocytosis Slight; Mean Platelet Volume 7.1; Monocytes # (A) 0.4 k/uL (0-1.0); Monocytes % (A) 6 %; Neutrophils # (A) 4.9 k/uL (1.3-7.7); Neutrophils % (A) 68 %; Platelet Count 250 k/uL (150-450); RBC 4.15 m/uL (4.30-5.90); RDW 13.4 % (11.5-15.5); WBC 7.2 k/uL (3.8-10.6)
[2021-10-01 14:44] LABS: Erythrocyte Sedimentation Rate 29 mm/hr (0-15)
--- NOTE | 2021-10-01 15:19 | NM ---
EXAMINATION TYPE: NM bone scan whole body DATE OF EXAM: 10/01/2021 COMPARISON: X-ray 11/04/2017 HISTORY: Pain Delayed whole-body scanning was performed following the injection of 23.4 mCi Tc 99m MDP. Images acq uired 4 hours post injection. FINDINGS: There is a photopenic defects involving bilateral femur likely related to previous surgery and hip arthroplasty.. There is increased intensity uptake along the right hip arthroplasty margins. This appears asymmetric relative to the postsurgical changes on the left. There is also abnormal photopenic defects involving the bilateral knee with very faint uptake surroun ding these likely postsurgical. IMPRESSION: 1. Findings suggest bilateral hip and knee arthroplasty. There is asymmetric moderate uptake along th e right hip arthroplasty. If there is concern for loosening or infection correlate with triple phase bone scan and tagged WBC study.
== END | disposition home or self-care (01) ==
LOC: RADNMMAIN 10:33
PROVIDERS: ATTEND Orthopaedic Surgery
DX: R52 Pain, unspecified (principal); Z96.641 Presence of right artificial hip joint
CPT/HCPCS: 85652; 85025; 86140; 78306; A9503

== ENCOUNTER 2021-10-10 08:25 | Day surgery (SDC) | payer MEDICARE, OTHER ==
[2021-10-10] MEDS ORDERED: ALPRAZolam 0.25 MG TAB PO PRN (08:51)
[2021-10-10 09:09] LABS: Glucose,Whole Blood 134 mg/dL (75-99)
[2021-10-10 09:14] VITALS: RESP 18; TEMP 98.1
[2021-10-10 10:12] VITALS: BP 148/74; PULSE 90
--- NOTE | 2021-10-10 11:22 | US ---
Ultrasound right hip HISTORY: Right hip pain Limited ultrasound performed of the right hip. Correlation to bone scan 10/01/2021 Exam is limited technically. No evident significant fluid collection. IMPRESSION: Aspiration was aborted due to lack of fluid.
== END 2021-10-10 10:10 | disposition home or self-care (01) ==
LOC: RADPROMAIN 08:25
PROVIDERS: ATTEND Orthopaedic Surgery
DX: M25.551 Pain in right hip (principal)

== ENCOUNTER → 2021-12-10 | Outpatient (CLI) | payer MEDICARE, OTHER ==
[2021-12-10 14:25] LABS: INR 0.9 (<1.2); Partial Thromboplastin Time 25.8 sec (22.0-30.0); Prothrombin Time 10.2 sec (9.0-12.0)
[2021-12-10 14:36] LABS: Appearance,Urine Clear (Clear); Bilirubin,Urine Negative (Negative); Blood,Urine Negative (Negative); Color,Urine Yellow; Glucose,Urine (UA) Negative (Negative); Ketones,Urine Negative (Negative); Leukocyte Esterase,Urine Negative (Negative); Nitrite,Urine Negative (Negative); Protein,Urine Trace (Negative); Specific Gravity,Urine 1.009 (1.001-1.035); Urobilinogen,Urine <2.0 mg/dL (<2.0)
[2021-12-10 19:29] LABS: African American GFR (CKD) 101.2 (60.0-200.0); Albumin 4.2 g/dL (3.8-4.9); Albumin/Globulin Ratio 1.42 (1.60-3.17); Anion Gap 12.5 mmol/L (10.00-18.00); BUN/Creat Ratio 16.04 Ratio (12.00-20.00); Blood Urea Nitrogen 13.3 mg/dL (9.0-27.0); Calcium 9.6 mg/dL (8.7-10.3); Carbon Dioxide 25.5 mmol/L (20.0-27.5); Non-African American GFR(CKD) 87.3 (60.0-200.0); Potassium 3.8 mmol/L (3.5-5.5); Total Bilirubin 0.4 mg/dL (0.30-1.20); Total Protein 7.2 g/dL (6.2-8.2)
[2021-12-10 19:57] LABS: HCT 46.1 % (39.6-50.0); HGB 15.7 g/dL (13.0-17.0); MCH 36.1 pg (27.0-32.0); MCHC 34.1 g/dL (32.0-37.0); Mean Platelet Volume 9.8 fL (9.5-12.2); Platelet Count 224 X 10*3/uL (140-440); RBC 4.35 X 10*6/uL (4.40-5.60)
== END | disposition home or self-care (01) ==
LOC: LABPAT 13:27
PROVIDERS: ATTEND Orthopaedic Surgery
DX: Z01.812 Encounter for preprocedural laboratory examination (principal)
CPT/HCPCS: 80053; 81003; 85027; 85610; 85730; 87070; 93005

== ENCOUNTER → 2022-01-22 | Outpatient (CLI) | payer MEDICARE, OTHER ==
[2022-01-22 11:52] LABS: Partial Thromboplastin Time 26.5 sec (22.0-30.0); Prothrombin Time 10.5 sec (9.0-12.0)
[2022-01-22 14:55] LABS: HCT 45.5 % (39.6-50.0); HGB 15.5 g/dL (13.0-17.0); MCH 36.2 pg (27.0-32.0); MCHC 34.1 g/dL (32.0-37.0); MCV 106.3 fL (80.0-97.0); Mean Platelet Volume 9.5 fL (9.5-12.2); NRBC Per 100 WBC 0 /100 WBCS (0.0-0.0); Platelet Count 193 X 10*3/uL (140-440); RBC 4.28 X 10*6/uL (4.40-5.60); RDW 13.7 % (11.5-14.5); WBC 6.64 X 10*3/uL (4.50-10.00)
[2022-01-22 15:17] LABS: African American GFR (CKD) 105.6 (60.0-200.0); Albumin 4.1 g/dL (3.8-4.9); Albumin/Globulin Ratio 1.37 (1.60-3.17); Anion Gap 13.5 mmol/L (10.00-18.00); BUN/Creat Ratio 17.69 Ratio (12.00-20.00); Calcium 9.2 mg/dL (8.7-10.3); Carbon Dioxide 24.8 mmol/L (20.0-27.5); Non-African American GFR(CKD) 91.1 (60.0-200.0); Potassium 4.2 mmol/L (3.5-5.5); Total Bilirubin 0.5 mg/dL (0.30-1.20); Total Protein 7.2 g/dL (6.2-8.2)
[2022-01-22 17:49] LABS: Appearance,Urine Clear (Clear); Bilirubin,Urine Negative (Negative); Blood,Urine Negative (Negative); Color,Urine Yellow (Yellow); Ketones,Urine Negative (Negative); Leukocyte Esterase,Urine Negative (Negative); Nitrite,Urine Negative (Negative); Protein,Urine Negative (Negative); Specific Gravity,Urine 1.011 (1.001-1.030)
== END | disposition home or self-care (01) ==
LOC: LABPAT 10:21
PROVIDERS: ATTEND Orthopaedic Surgery
DX: Z01.812 Encounter for preprocedural laboratory examination (principal)
CPT/HCPCS: 80053; 81003; 85027; 85610; 85730; 87070

== ENCOUNTER 2022-01-29 08:44 | Inpatient (IN) | payer MEDICARE, OTHER ==
[~2022-01-29 08:44] MED LIST changes: -ACETAMINOPHEN TAB 500 MG TAB PO ONE; +ACETAMINOPHEN TAB 500 MG TAB PO PRN; +CLINDAMYCIN 900 MG in DEXTROSE 5% IN WATER 50 ML IVPB PRN; -DEXAMETHASONE SOD PHOSPHATE 10 MG/ML 1 ML VIAL IV ONE; +DEXAMETHASONE SOD PHOSPHATE 4 MG/ML 1 ML VIAL IV ONE; -GABAPENTIN 300 MG CAP PO ONE; +GABAPENTIN 300 MG CAP PO PRN; -LIDOCAINE 1% 20 ML VIAL (10MG/ML) FOR IV START INTRADERMA PRN; -MELOXICAM 7.5 MG TAB PO ONE; +MELOXICAM 7.5 MG TAB PO PRN; -MIDAZOLAM 2 MG/2 ML VIAL IV PRN; -ROPIVACAINE 246.25 MG, EPINEPHrine 0.5 MG, KETOROLAC 30 MG, cloNIDine HCL/PF 80 MCG, WA... MISCELLANE ONE; -SCOPOLAMINE 1.5MG/72HR PATCH TRANSDERM ONE; -TRANEXAMIC ACID 1,000 MG in SODIUM CHLORIDE 0.9% 100 ML IVPB ONE; +TRANEXAMIC ACID IN NACL,ISO-OS 1,000 MG in SALINE 1 100ML.BAG IVPB PRN; -ceFAZolin 3 GM in SODIUM CHLORIDE 0.9% 100 ML IVPB ONE
[2022-01-29 10:24] LABS: Glucose,Whole Blood 131 mg/dL (75-99)
[2022-01-29] MEDS: LACTATED RINGERS 1,000 ML IV SCH ×2 (10:26→20:05)
[2022-01-29] MEDS ORDERED: MIDAZOLAM 2 MG/2 ML VIAL ONE (11:11)
[2022-01-29] MEDS ORDERED: SUCCINYLCHOLINE CHLORIDE VIAL 200 MG/10 ML VIAL IV ONE (11:11)
[2022-01-29] MEDS ORDERED: PROPOFOL 10 MG/ML 20 ML VIAL IV ONE (11:11)
[2022-01-29] MEDS ORDERED: TRANEXAMIC ACID IN NACL,ISO-OS 1,000 MG/100 ML BAG ONE (11:11)
[2022-01-29] MEDS ORDERED: fentaNYL (PF) 50 MCG/ML 2 ML AMP ONE (11:11)
[2022-01-29] MEDS ORDERED: KETAMINE 10 MG/ML 20 ML VIAL ONE (11:11)
[2022-01-29] MEDS ORDERED: ePHEDrine 50 MG/ML 1 ML VIAL ONE (11:11)
[2022-01-29] MEDS ORDERED: PHENYLEPHRINE-0.9% NACL SYG 1,000 MCG/10 ML SYRINGE ONE (11:11)
[2022-01-29] MEDS ORDERED: LIDOCAINE 1% INJ 10MG/ML (20 ML MDV) ONE (11:11)
[2022-01-29] MEDS ORDERED: GLYCOPYRROLATE 0.2 MG/ML 2 ML VIAL ONE (11:11)
[2022-01-29] MEDS ORDERED: SODIUM CHLORIDE 0.9% 100 ML with ceFAZolin 3,000 MG IV ONE ×2 (11:30)
[2022-01-29] MEDS ORDERED: ceFAZolin 1,000 MG in SODIUM CHLORIDE 0.9% 1,000 ML IRRIGATION ONE (11:48)
[2022-01-29] MEDS ORDERED: LACTATED RINGERS 1,000 ML IV ONE (12:54)
--- NOTE | 2022-01-29 15:14 | P.OP ---
Date of Procedure: 01/29/22 Preoperative Diagnosis: Loose femoral stem right total hip arthroplasty Postoperative Diagnosis: Loose femoral stem right total hip arthroplasty Procedure(s) Performed: Revision right total hip arthroplasty Implants: [employer] readapt femoral revision stem standard offset. Size 14, 245 mm length [employer] Oxinium to mobility insert [employer] 28 mm +4 Oxinium femoral head [employer] to mobility XLP E insert [employer] accord 2.0 mm cable 6 Anesthesia: GETA, spinal Surgeon: Jeff Mathew Grinder Hand #1: Lovely Feldman Estimated Blood Loss (ml): 1,700 Pathology: other (Cultures 2) Condition: stable Disposition: PACU Indications for Procedure: This is a 76-year-old gentleman that is seen by me in the office status post right total hip arthroplasty proximally 4-5 years ago. He has signs and sympt oms of a loose femoral stem possible infection. After discussing the surgical nonsurgical treatment options at length he wishes to proceed with a revision of his right total hip arthroplasty and informed consent was obtained. Operative Findings: The operative findings are consistent with loosening of the femoral stem stat Gram stain during the procedure showed no organisms Description of Procedure: Patient was seen and evaluated in the preoperative area, consent was reviewed, and the surgical site was marked with a skin marker. Patient was then brought to the operating room and given prophylactic antibiotics intravenously. 1 g of Tranexamic acid was also given. A spinal anesthetic was administered by the anesthesia department. The patient was then placed on the operative table and placed in the lateral decubitus position with the bony prominences well-padded. The hip area was then prepped and draped in usual sterile fashion. A universal timeout was then performed, which confirmed the patient's name, surgical site, ALLERGIES, and procedure being performed. Next the incision site was located in the lateral aspect of the hip, centered at the tip of the greater trochanter.. The skin and subcutaneous tissues were sharply incised. Incision was carefully dissected down to the fascia. This fascia was then incised in line with the incision. Next, a Charnley retractor was then placed in the abductors were identified. The anterior one third of the abductors was released off the trochanter and one large sleeve. The anterior hip capsule was then exposed. The capsule was then opened. The proximal femur was then visualized. The hip was then gently dislocated. The femoral head was then removed from the femoral stem, and multiple attempts to remove the femoral stem was performed. There was gross loosening of the femoral stem, but was unable to be extracted. An extended trochanteric osteotomy was then performed and the distal aspect of the stem was found to be ingrown. Small osteotome was used to disrupt this ingrowth and the stem was then removed. The osteotomy was then repaired with cables. Attention was turned to the acetabulum. The acetabulum was exposed. The liner was removed, and replaced with a dual mobility insert.. Component locking was confirmed. Attention was then directed to the femur. The proximal femur was reexposed. Retractors were then placed. Sequential reaming of the femur was then performed to excellent cortical fixation.. A trial was then placed with appropriate head and neck, and the hip was gently reduced. The leg lengths were checked and found to be equal. Hip was then taken through full range of motion, was stable throughout, although was found to be slightly unstable with flexion of the hip and abduction. Next, the hip was gently dislocated, and the trials were removed. Final implants were then impacted and the hip was again reduced. The leg lengths were again examined and found to be equal. The hip was also taken through range of motion, and found to be stable. The hip was then copiously irrigated with antibiotic solution with pulsatile la vage. The hip was then irrigated with Irrisept solution. A second dose of 1 g of Tranexamic acid was given. The abductors were then repaired with #5 Ethibond suture with drill holes to the bone. The fascia was closed with #2 strata fix suture. The subcutaneous tissue was closed with 3-0 Vicryl. The skin was closed with jennyfer.. The patient was then transferred to the recovery room in stable condition in an abductor pillow The Asst.AGUSTÍN Joya was required due to the complexity of surgery, and the need for skilled surgical dental assistant for positioning, draping, exposure, retraction, and closure of the wound.and closure of the wound.
[2022-01-29] MEDS ORDERED: NALOXONE 0.4 MG/ML 1 ML VIAL IV PRN (15:37)
[2022-01-29] MEDS ORDERED: ONDANSETRON 4 MG/2 ML VIAL IVP PRN (15:37)
[2022-01-29] MEDS ORDERED: HYDROmorphone 0.2 MG/1 ML SYRINGE IVP PRN (15:37)
[2022-01-29] MEDS ORDERED: HYDROmorphone 0.5 MG/0.5 ML SYRINGE IVP PRN ×2 (15:37)
[2022-01-29] MEDS ORDERED: MAGNESIUM HYDROXIDE 2,400 MG/10 ML CUP PO PRN (15:37)
[2022-01-29 15:57] LABS: HCT 41.2 % (39.0-53.0); HGB 13.8 gm/dL (13.0-17.5); MCH 36.6 pg (25.0-35.0); MCHC 33.5 g/dL (31.0-37.0); MCV 109.3 fL (80.0-100.0); Mean Platelet Volume 7.4; Platelet Count 186 k/uL (150-450); RBC 3.77 m/uL (4.30-5.90); RDW 13.2 % (11.5-15.5); WBC 6.1 k/uL (3.8-10.6)
[2022-01-29 15:58] LABS: Macrocytosis Marked
[2022-01-29 16:14] LABS: Glucose,Whole Blood 169 mg/dL (75-99)
--- NOTE | 2022-01-29 16:34 | XR ---
EXAMINATION TYPE: XR Hip Limited RT DATE OF EXAM: 01/29/2022 CLINICAL HISTORY: Right hip pain and osteoarthritis. Right hip prosthesis replacement. TECHNIQUE: 2 AP portable view of right hip is obtained immediately postoperatively. COMPARISON: Prior right hip x-ray November 04, 2017. FINDINGS: Metallic hardware from longstem right hip arthroplasty is now seen and appears satisfactory in alignment and position. Surrounding cerclage wires now present. There is evidence of recent surge ry with subcutaneous gas and vertical skin jennyfer noted laterally. IMPRESSION: Metallic hardware from longstem right hip arthroplasty is satisfactory in position.
[2022-01-29] MEDS: SODIUM CHLORIDE 0.9% 1,000 ML IV SCH (16:37)
[2022-01-29] MEDS: HYDROcodone/APAP 7.5-325MG 1 EACH TAB PO PRN ×2 (18:04→23:34)
[2022-01-29] MEDS: CLINDAMYCIN 900 MG in DEXTROSE 5% IN WATER 50 ML IVPB SCH ×2 (20:04)
[2022-01-29] MEDS: SENNOSIDES-DOCUSATE SODIUM 1 EACH TAB PO SCH (20:30)
[2022-01-29] MEDS: metFORMIN 500 MG TAB PO SCH (20:30)
[2022-01-29] MEDS: ASPIRIN 325 MG TAB PO SCH (20:30)
[2022-01-29 20:40] LABS: Glucose,Whole Blood 165 mg/dL (75-99)
[2022-01-30] MEDS: CLINDAMYCIN 900 MG in DEXTROSE 5% IN WATER 50 ML IVPB SCH ×2 (01:51)
[2022-01-30] MEDS: SODIUM CHLORIDE 0.9% 1,000 ML IV SCH (05:12)
[2022-01-30] MEDS: HYDROcodone/APAP 7.5-325MG 1 EACH TAB PO PRN ×4 (05:15→20:09)
[2022-01-30 06:53] LABS: Glucose,Whole Blood 164 mg/dL (75-99)
[2022-01-30] MEDS: ASCORBIC ACID 500 MG TAB PO SCH (07:29)
[2022-01-30] MEDS: ATORVASTATIN 10 MG TAB PO SCH (07:30)
[2022-01-30] MEDS: metFORMIN 500 MG TAB PO SCH ×2 (07:30→20:07)
[2022-01-30] MEDS: ASPIRIN 325 MG TAB PO SCH ×2 (07:30→20:07)
[2022-01-30] MEDS: FLUoxetine HCL 20 MG CAP PO SCH (07:30)
[2022-01-30] MEDS: FUROSEMIDE 40 MG TAB PO SCH (07:30)
[2022-01-30] MEDS: MULTIVITAMINS, THERA 1 EACH TAB PO SCH (07:30)
[2022-01-30] MEDS: LOSARTAN 50 MG TAB PO SCH (07:37)
[2022-01-30 09:31] LABS: HCT 34.6 % (39.6-50.0); HGB 11.6 g/dL (13.0-17.0); MCH 35.6 pg (27.0-32.0); MCHC 33.5 g/dL (32.0-37.0); MCV 106.1 fL (80.0-97.0); Mean Platelet Volume 9.6 fL (9.5-12.2); NRBC Per 100 WBC 0 /100 WBCS (0.0-0.0); Platelet Count 156 X 10*3/uL (140-440); RBC 3.26 X 10*6/uL (4.40-5.60); RDW 13.9 % (11.5-14.5); WBC 7.56 X 10*3/uL (4.50-10.00)
--- NOTE | 2022-01-30 10:08 | P.PN ---
Subjective Progress Note Date: 01/30/22 This patient is a 76-year-old male who is status-post revision right total hip arthroplasty on 01/29/22. Patient is seen and examined bedside this morning. He states the pain in his right hip is well-controlled at this time. He has not yet been up with physical therapy. He is tolerating his diet well. He has no complaints or concerns this morning. He denies chest pain, shortness of breath, nausea, vomiting, fevers, chills. Objective - Vital Signs Vital signs: Vital Signs Temp 98.6 F 01/30/22 07:47 Pulse 81 01/30/22 07:47 Resp 18 01/30/22 08:56 BP 124/68 01/30/22 07:47 Pulse Ox 93 L 01/30/22 07:47 Intake & Output 01/29/22 01/30/22 01/30/22 18:59 06:59 18:59 Intake Total 2291 Output Total 1700 Balance 591 Weight 154.1 kg Intake: IV 2051 Oral 240 Output: Estimated Blood Loss 1700 Other: Voiding Method Urinal Urinal - Exam On examination, patient is sitting up in bed in no apparent distress. He is alert and oriented 3. On inspection of his right hip, there is a clean, dry, intact Optifoam dressing in place about the lateral hip. There is no bleeding or drainage through the dressing. There is mild swelling of the thigh, the thigh is soft and compressible. Motor and sensory function is intact of the right lower extremity. Dorsalis pedis pulse palpable, the right lower extremity is warm and well-perfused with brisk capillary refill distally. - Labs CBC & Chem 7: 01/30/22 05:46 Labs: Abnormal Lab Results - Last 24 Hours (Table) 01/29/22 01/29/22 01/29/22 Range/Units 10:22 14:34 16:11 RBC 3.77 L (4.30-5.90) m/uL Hgb (13.0-17.0) g/dL Hct (39.6-50.0) % MCV 109.3 H (80.0-100.0) fL MCH 36.6 H (25.0-35.0) pg Macrocytosis Marked A POC Glucose (mg/dL) 131 H 169 H (75-99) mg/dL 01/29/22 01/30/22 01/30/22 Range/Units 20:38 05:46 06:52 RBC 3.26 L (4.30-5.90) m/uL Hgb 11.6 L (13.0-17.0) g/dL Hct 34.6 L (39.6-50.0) % MCV 106.1 H (80.0-100.0) fL MCH 35.6 H (25.0-35.0) pg Macrocytosis POC Glucose (mg/dL) 165 H 164 H (75-99) mg/dL Microbiology - Last 24 Hours (Table) 01/29/22 13:13 Gram Stain - Preliminary Hip - Right Wound Culture - Preliminary 01/29/22 13:13 Gram Stain - Preliminary Hip - Right Wound Culture - Preliminary 01/29/22 13:13 Anaerobic Culture - Preliminary Hip - Right 01/29/22 13:13 Anaerobic Culture - Preliminary Hip - Right Assessment and Plan Assessment: Status-post revision right total hip arthroplasty on 01/29/22. Post-operative day #1. Plan: - Toe-touch weightbearing on the operative extremity. Up with assistance, up with a walker. - Physical therapy for gait and balance training. - Keep operative dressing intact. - Pain management as needed. - Abductor pillow while in bed. Hip dislocation precautions. - Aspirin 325mg BID for DVT prophylaxis. - Internal medicine consulted for serena-operative medical management. - Case management has been consulted for discharge planning.
[2022-01-30 10:57] LABS: African American GFR (CKD) >90 (>60 ml/min/1.73 sqM); Anion Gap 4 mmol/L; Blood Urea Nitrogen 17 mg/dL (9-20); Calcium 8.3 mg/dL (8.4-10.2); Carbon Dioxide 31 mmol/L (22-30); Chloride 101 mmol/L (98-107); Glucose 141 mg/dL (74-99); Non-African American GFR(CKD) 89 (>60 ml/min/1.73 sqM); Sodium 136 mmol/L (137-145)
[2022-01-30] MEDS: LACTATED RINGERS 1,000 ML IV SCH (11:33)
[2022-01-30 11:35] LABS: Glucose,Whole Blood 158 mg/dL (75-99)
--- NOTE | 2022-01-30 11:54 | P.CONS ---
History of Present Illness - Reason for Consult Consult date: 01/30/22 Medical management - Chief Complaint Right hip total arthroplasty - History of Present Illness Patient is a 76-year-old male with a known history of coronary artery disease, history of CVA/TIA, hypertension, hyperlipidemia, history of [place], prior history of left hip arthroplasty and bilateral knee arthroplasty, depression, currently everyday smoker and daily alcohol use admitted to hospital for right hip arthroplasty revision. Patient underwent loose femoral stem right total hip arthroplasty. Currently denies any complaints of worsening pain. No complaints of chest pain or shortness of breath. No nausea vomiting or abdominal pain or diarrhea. Denies any dysuria or hematuria. No cough or sputum production. Laboratory data showed WBC 6.1 hemoglobin 13.8 MCV 1090.3 and platelets 186 Review of Systems Constitutional: Patient denies any fever or chills . No generalized weakness or weight loss. Abdomen: Patient denied nausea vomiting and diarrhea and abdominal pain. Cardiovascular: Patient denies any chest pain or short of breath no pa lpitations. Respiratory: patient denied any cough is from production. No shortness of breath Neurologic: Patient denied any numbness or tingling headache. Musculoskeletal: Patient denies any complaints of joint swelling or deformity. Skin: Negative Psychiatric: Negative Endocrine: No heat or cold intolerance. No recent weight gain. Genitourinary: No dysuria or hematuria. All other 14 point ROS negative except the above Past Medical History Past Medical History: Coronary Artery Disease (CAD), CVA/TIA, Hyperlipidemia, Hypertension, Myocardial Infarction ([place]), Osteoarthritis (OA) Additional Past Medical History / Comment(s): "leaky heart valve",phlebitis left leg,Hepatitis C-yrs ago Last Myocardial Infarction Date:: unknown History of Any Multi-Drug Resistant Organisms: MRSA Year Discovered:: 11/16/01 MDRO Source:: left hip Past Surgical History: Appendectomy, Heart Catheterization, Joint Replacement, Orthopedic Surgery Additional Past Surgical History / Comment(s): 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 Past Anesthesia/Blood Transfusion Reactions: No Reported Reaction Additional Past Anesthesia/Blood Transfusion Reaction / Comm: no problems with prior blood transfusion Past Psychological History: Depression Smoking Status: Current every day smoker Past Alcohol Use History: Daily Additional Past Alcohol Use History / Comment(s): Drinks 3 beers daily,started smoking at age 19-1ppd Past Drug Use History: None Reported Additional Drug Use History / Comment(s): lives with son - Past Family History Mother Family Medical History: Cancer Father Family Medical History: Deep Vein Thrombosis (DVT) Brother(s) Family Medical History: Deep Vein Thrombosis (DVT), Hypertension Medications and Allergies Home Medications Medication Instructions Recorded Confirmed Type Ascorbic Acid [Vitamin C] 500 mg PO DAILY 10/27/17 01/29/22 History FLUoxetine HCL [PROzac] 60 mg PO QAM 10/27/17 01/29/22 History Furosemide [Lasix] 40 mg PO QAM 10/27/17 01/29/22 History Lovastatin [Mevacor] 20 mg PO DAILY 10/27/17 01/29/22 History Aspirin [Adult Low Dose Aspirin EC] 81 mg PO DAILY 11/02/19 01/25/22 History HYDROcodone/APAP 5-325MG [[place] 1 tab PO DIRECTED PRN 12/13/21 01/29/22 History 5-325] Losartan [Cozaar] 50 mg PO QAM 12/13/21 01/29/22 History Multivit-Min/Folic/Vit K/Lycop 1 each PO DAILY 12/13/21 01/25/22 History [Men's Multivitamin Tablet] metFORMIN HCL [Glucophage] 500 mg PO BID 12/13/21 01/29/22 History Aspirin 325 mg PO BID #60 tab 01/29/22 Rx HYDROcodone/APAP 7.5-325MG [[place] 1 - 2 tab PO Q6H PRN #32 tab 01/29/22 Rx 7.5-325] Ondansetron Odt [Zofran Odt] 1 tab PO Q8HR PRN #10 tab 01/29/22 Rx Sennosides [Senokot] 2 tab PO DAILY PRN #60 tablet 01/29/22 Rx Allergies Allergy/AdvReac Type Severity Reaction Status Date / Time adhesive tape Allergy blisters,ok Verified 01/29/22 10:05 to use paper tape Penicillins Allergy Swelling Verified 01/29/22 10:05 Physical Exam Vitals: Vital Signs Temp Pulse Pulse Resp BP BP Pulse Ox 01/30/22 08:56 18 01/30/22 07:47 98.6 F 81 18 124/68 93 L 01/30/22 02:00 98.8 F 68 18 105/58 98 01/29/22 20:04 82 20 01/29/22 20:00 97.4 F L 82 17 107/53 95 01/29/22 17:20 97.9 F 59 L 124/64 97 01/29/22 16:40 55 L 16 125/62 97 01/29/22 16:24 56 L 16 105/59 94 L 01/29/22 16:09 58 L 16 140/55 93 L 01/29/22 15:55 62 18 118/69 97 01/29/22 15:39 96.8 F L 77 18 113/57 99 01/29/22 10:13 97.6 F 83 17 169/82 95 Intake and Output 01/29/22 01/30/22 01/30/22 22:59 06:59 14:59 Intake Total 390 Balance 390 Intake: IV 150 Oral 240 Other: Voiding Method Urinal Urinal Weight 154.1 kg PHYSICAL EXAMINATION: Patient is lying in the bed comfortably, no acute distress, awake alert and or iented.. HEENT: Normocephalic. Neck is supple. Pupils reactive. Nostrils clear. Oral cavity is moist. Neck reveals no JVD, carotid bruits, or thyromegaly. CHEST EXAMINATION: Trachea is central. Symmetrical expansion. Lung murphy clear to auscultation and percussion. CARDIAC: Normal S1, S2 with no gallops. No murmurs ABDOMEN: Soft. Bowel sounds normal. No organomegaly. No abdominal bruits. Extremities: Bilateral lower extremity trace edema. No clubbing or cyanosis Neurologically awake, alert, oriented x3 with well-coordinated movements. No focal deficits noted Skin: No rash or skin lesions. Bilateral lower activity skin discoloration and loss of hair. Psychiatric: Coperative. Nonsuicidal Musculoskeletal: No joint swelling or deformity. Normal range of motion. Right hip surgical site bandaged. Results CBC & Chem 7: 01/30/22 05:46 01/30/22 10:13 Labs: Abnormal Lab Results - Last 24 Hours (Table) 01/29/22 01/29/22 01/29/22 Range/Units 10:22 14:34 16:11 RBC 3.77 L (4.30-5.90) m/uL Hgb (13.0-17.0) g/dL Hct (39.6-50.0) % MCV 109.3 H (80.0-100.0) fL MCH 36.6 H (25.0-35.0) pg Macrocytosis Marked A POC Glucose (mg/dL) 131 H 169 H (75-99) mg/dL 01/29/22 01/30/22 01/30/22 Range/Units 20:38 05:46 06:52 RBC 3.26 L (4.30-5.90) m/uL Hgb 11.6 L (13.0-17.0) g/dL Hct 34.6 L (39.6-50.0) % MCV 106.1 H (80.0-100.0) fL MCH 35.6 H (25.0-35.0) pg Macrocytosis POC Glucose (mg/dL) 165 H 164 H (75-99) mg/dL Microbiology - Last 24 Hours (Table) 01/29/22 13:13 Gram Stain - Preliminary Hip - Right Wound Culture - Preliminary 01/29/22 13:13 Gram Stain - Preliminary Hip - Right Wound Culture - Preliminary 01/29/22 13:13 Anaerobic Culture - Preliminary Hip - Right 01/29/22 13:13 Anaerobic Culture - Preliminary Hip - Right Assessment and Plan Assessment: Status post right hip arthroplastyrevisiondue to loose femoral stem.postoperative day 1 Hypertension Diabetes type 2 [id number] Hyperlipidemia History of [place] status post cardiac catheterization Ongoing nicotine addiction D alcohol use Macrocytosis secondary to alcohol use Osteoarthritis Hepatitis C history Anxiety/depressionbilateral lower extremity venous stasis DVT prophylaxis Plan: Patient will be continued on pain management, bowel regimen and incentive spirometry. Continue with Lasix and losartan and follow-up BMP. Continue with insulin sliding scale and metformin for blood sugar control. X-rays PTOT and follow up closely. Monitor for any alcohol withdrawal symptoms. thank you for consulting internal medicine service. Time with Patient: Greater than 30
[2022-01-30 13:36] LABS: Basophils # (A) 0.02 X 10*3/uL (0.00-0.10); Basophils % (A) 0.3 %; Eosinophils # (A) 0.01 X 10*3/uL (0.04-0.35); Eosinophils % (A) 0.1 %; Immature Grans, Automated 0.7 %; Lymphocytes # (A) 1.39 X 10*3/uL (0.90-5.00); Lymphocytes % (A) 18.4 %; Monocytes # (A) 0.84 X 10*3/uL (0.20-1.00); Monocytes % (A) 11.1 %; Neutrophils # (A) 5.25 X 10*3/uL (1.80-7.70); Neutrophils % (A) 69.4 %
[2022-01-30 13:37] LABS: RBC Morphology NORMAL
[2022-01-30] MEDS: SENNOSIDES-DOCUSATE SODIUM 1 EACH TAB PO SCH (20:07)
[2022-01-31] MEDS: HYDROcodone/APAP 7.5-325MG 1 EACH TAB PO PRN ×4 (00:17→20:45)
[2022-01-31] MEDS: SODIUM CHLORIDE 0.9% 1,000 ML IV SCH ×2 (00:28→07:44)
[2022-01-31] MEDS: ASPIRIN 325 MG TAB PO SCH ×2 (07:36→19:45)
[2022-01-31] MEDS: LOSARTAN 50 MG TAB PO SCH (07:36)
[2022-01-31] MEDS: FLUoxetine HCL 20 MG CAP PO SCH (07:36)
[2022-01-31] MEDS: ASCORBIC ACID 500 MG TAB PO SCH (07:36)
[2022-01-31] MEDS: ATORVASTATIN 10 MG TAB PO SCH (07:36)
[2022-01-31] MEDS: metFORMIN 500 MG TAB PO SCH ×2 (07:36→19:45)
[2022-01-31] MEDS: FUROSEMIDE 40 MG TAB PO SCH (07:36)
[2022-01-31] MEDS: MULTIVITAMINS, THERA 1 EACH TAB PO SCH (07:36)
[2022-01-31] MEDS: LACTATED RINGERS 1,000 ML IV SCH (07:45)
--- NOTE | 2022-01-31 09:31 | P.PN ---
Subjective Progress Note Date: 01/31/22 This is a 76-year-old male who is status post revision right total hip arthroplasty. This is postoperative day #2 and patient is seen and evaluated at bedside today. Patient states that he is sore, but his pain medicine is keeping his pain under control. Patient denies any new complaints today. Objective - Vital Signs Vital signs: Vital Signs Temp 98.1 F 01/31/22 07:48 Pulse 75 01/31/22 07:48 Resp 17 01/31/22 07:48 BP 172/70 01/31/22 07:48 Pulse Ox 93 L 01/31/22 07:48 Intake & Output 01/30/22 01/31/22 01/31/22 18:59 06:59 18:59 Intake Total 400 200 Output Total 550 300 300 Balance -150 -300 -100 Intake: Oral 400 200 Output: Urine 550 300 300 Other: Voiding Method Urinal Urinal Urinal - Exam Vital signs are stable. Patient is in no acute distress and is alert and oriented 3. Calf is soft and nontender to palpation. Dressing is clean, dry, and intact. Patient has full foot and ankle motion without pain or difficulty. Sensation intact. Neurovascular status and circulatory status are intact. - Labs CBC & Chem 7: 01/30/22 05:46 01/30/22 10:13 Labs: Abnormal Lab Results - Last 24 Hours (Table) 01/30/22 01/30/22 01/30/22 Range/Units 05:46 10:13 11:34 RBC 3.26 L (4.40-5.60) X 10*6/uL Hgb 11.6 L (13.0-17.0) g/dL Hct 34.6 L (39.6-50.0) % MCV 106.1 H (80.0-97.0) fL MCH 35.6 H (27.0-32.0) pg Immature Gran # 0.05 H (0.00-0.04) X 10*3/uL Eosinophils # 0.01 L (0.04-0.35) X 10*3/uL Sodium 136 L (137-145) mmol/L Carbon Dioxide 31 H (22-30) mmol/L Glucose 141 H (74-99) mg/dL POC Glucose (mg/dL) 158 H (75-99) mg/dL Calcium 8.3 L (8.4-10.2) mg/dL Microbiology - Last 24 Hours (Table) 01/29/22 13:13 Gram Stain - Preliminary Hip - Right Wound Culture - Preliminary 01/29/22 13:13 Gram Stain - Preliminary Hip - Right Wound Culture - Preliminary Assessment and Plan Assessment: Status post revision right total hip arthroplasty. (1) Loose total hip arthroplasty Current Visit: Yes Status: Acute Code(s): T84.038A - MECHANICAL LOOSENING OF OTH INTERNAL PROSTHETIC JOINT, INIT; Z96.649 - PRESENCE OF UNSPECIFIED ARTIFICIAL HIP JOINT SNOMED Code(s): 331493492 (2) Status post revision of total hip Current Visit: Yes Status: Acute Code(s): Z96.649 - PRESENCE OF UNSPECIFIED ARTIFICIAL HIP JOINT SNOMED Code(s): 851642112 Plan: Continue routine postop care and pain control. Continue strict hip dislocation precautions and use of abductor pillow for 6 w eeks. Continue anticoagulation with aspirin. Toe-touch weightbearing to the right lower extremity with a walker. Leave dressing in place for 10 days. Appreciate input from medicine. Anticipate discharge to rehab tomorrow.
[2022-01-31] MEDS: SENNOSIDES-DOCUSATE SODIUM 1 EACH TAB PO SCH (19:45)
--- NOTE | 2022-01-31 23:35 | P.PN ---
Subjective Progress Note Date: 01/31/22 Patient is a 76-year-old male with a known history of coronary artery disease, history of CVA/TIA, hypertension, hyperlipidemia, history of [place], prior history of left hip arthroplasty and bilateral knee arthroplasty, depression, currently everyday smoker and daily alcohol use admitted to hospital for right hip arthroplasty revision. Patient underwent loose femoral stem right total hip arthroplasty. Currently denies any complaints of worsening pain. No complaints of chest pain or shortness of breath. No nausea vomiting or abdominal pain or diarrhea. Denies any dysuria or hematuria. No cough or sputum production. Laboratory data showed WBC 6.1 hemoglobin 13.8 MCV 1090.3 and platelets 186 01/31/2022 Patient is currently sitting in the chair. Awake alert and oriented x3. No complaints of chest pain or shortness of breath. Diet pain is controlled with medications. No fever no chills. No cough or sputum production. Blood pressure is elevated this morning but is controlled currently after medications. Patient is being continued on PT OT. Possible discharge to rehab.Wound cultures from the right hip showed group 3 Enterococcus species. Current medications reviewed. Objective - Vital Signs Vital signs: Vital Signs Temp 98.1 F 01/31/22 07:48 Pulse 75 01/31/22 07:48 Resp 17 01/31/22 07:48 BP 172/70 01/31/22 07:48 Pulse Ox 93 L 01/31/22 07:48 Intake & Output 01/30/22 01/31/22 01/31/22 18:59 06:59 18:59 Intake Total 400 200 Output Total 550 300 300 Balance -150 -300 -100 Intake: Oral 400 200 Output: Urine 550 300 300 Other: Voiding Method Urinal Urinal Urinal - Exam PHYSICAL EXAMINATION: Patient is lying in the bed comfortably, no acute distress, awake alert and oriented.. HEENT: Normocephalic. Neck is supple. Pupils reactive. Nostrils clear. Oral cavity is moist. Neck reveals no JVD, carotid bruits, or thyromegaly. CHEST EXAMINATION: Trachea is central. Symmetrical expansion. Lung murphy clear to auscultation and percussion. CARDIAC: Normal S1, S2 with no gallops. No murmurs ABDOMEN: Soft. Bowel sounds normal. No organomegaly. No abdominal bruits. Extremities: Bilateral lower extremity trace edema. No clubbing or cyanosis Neurologically awake, alert, oriented x3 with well-coordinated movements. No focal deficits noted Skin: No rash or skin lesions. Bilateral lower activity skin discoloration and loss of hair. Psychiatric: Coperative. Nonsuicidal Musculoskeletal: No joint swelling or deformity. Normal range of motion. Right hip surgical site bandaged. - Labs CBC & Chem 7: 01/30/22 05:46 01/30/22 10:13 Labs: Abnormal Lab Results - Last 24 Hours (Table) 01/30/22 01/30/22 Range/Units 05:46 11:34 Immature Gran # 0.05 H (0.00-0.04) X 10*3/uL Eosinophils # 0.01 L (0.04-0.35) X 10*3/uL POC Glucose (mg/dL) 158 H (75-99) mg/dL Microbiology - Last 24 Hours (Table) 01/29/22 13:13 Gram Stain - Preliminary Hip - Right Wound Culture - Preliminary 01/29/22 13:13 Gram Stain - Preliminary Hip - Right Wound Culture - Preliminary Assessment and Plan Assessment: Status post right hip arthroplastyrevisiondue to loose femoral stem.postoperative day 2 Hip joint infection. Wound cultures showed Enterococcus species. Hypertension Diabetes type 2 [id number] Hyperlipidemia History of [place] status post cardiac catheterization Ongoing nicotine addiction D alcohol use Macrocytosis secondary to alcohol use Osteoarthritis Hepatitis C history Anxiety/depressionbilateral lower extremity venous stasis DVT prophylaxis Plan: Patient will be continued on pain management, bowel regimen and incentive spirom etry. Continue with Lasix and losartan. Continue with insulin sliding scale and metformin for blood sugar control. Patient will be started on vancomycin and ID will be consulted. Patient is allergic to penicillins. Follow-up final culture report. X-rays PTOT and follow up closely. Monitor for any alcohol withdrawal symptoms. Time with Patient: Greater than 30
[2022-01-31] MEDS ORDERED: VANCOMYCIN IV PER PHARMACY 1 EACH MISC MISCELLANE PRN (23:38)
[2022-02-01] MEDS ORDERED: VANCOMYCIN 2,500 MG in SODIUM CHLORIDE 0.9% 500 ML 500 ML IVPB ONE (01:00)
[2022-02-01] MEDS: SODIUM CHLORIDE 0.9% 1,000 ML IV SCH ×2 (02:46→09:00)
[2022-02-01] MEDS: HYDROcodone/APAP 7.5-325MG 1 EACH TAB PO PRN ×4 (02:47→19:46)
[2022-02-01] MEDS: LOSARTAN 50 MG TAB PO SCH (06:03)
[2022-02-01] MEDS: FUROSEMIDE 40 MG TAB PO SCH (06:03)
[2022-02-01] MEDS: FLUoxetine HCL 20 MG CAP PO SCH (06:03)
[2022-02-01] MEDS: ASPIRIN 325 MG TAB PO SCH ×2 (06:03→19:46)
[2022-02-01] MEDS: metFORMIN 500 MG TAB PO SCH ×2 (06:03→19:46)
[2022-02-01] MEDS: ATORVASTATIN 10 MG TAB PO SCH (06:03)
[2022-02-01] MEDS: ASCORBIC ACID 500 MG TAB PO SCH (06:03)
[2022-02-01] MEDS: MULTIVITAMINS, THERA 1 EACH TAB PO SCH (06:03)
[2022-02-01 09:00] LABS: Basophils # (A) 0.02 X 10*3/uL (0.00-0.10); Basophils % (A) 0.3 %; Eosinophils # (A) 0.24 X 10*3/uL (0.04-0.35); Eosinophils % (A) 3.7 %; HCT 29.4 % (39.6-50.0); HGB 9.9 g/dL (13.0-17.0); Immature Grans, Automated 0.8 %; Lymphocytes # (A) 1.43 X 10*3/uL (0.90-5.00); Lymphocytes % (A) 22.1 %; MCH 36.3 pg (27.0-32.0); MCHC 33.7 g/dL (32.0-37.0); MCV 107.7 fL (80.0-97.0); Mean Platelet Volume 9.5 fL (9.5-12.2); Monocytes # (A) 0.62 X 10*3/uL (0.20-1.00); Monocytes % (A) 9.6 %; NRBC Per 100 WBC 0 /100 WBCS (0.0-0.0); Neutrophils # (A) 4.11 X 10*3/uL (1.80-7.70); Neutrophils % (A) 63.5 %; Platelet Count 148 X 10*3/uL (140-440); RBC 2.73 X 10*6/uL (4.40-5.60); RDW 14.2 % (11.5-14.5); WBC 6.47 X 10*3/uL (4.50-10.00)
[2022-02-01 09:21] LABS: African American GFR (CKD) 107.7 (60.0-200.0); Anion Gap 8.5 mmol/L (10.00-18.00); BUN/Creat Ratio 14.29 Ratio (12.00-20.00); Calcium 8.1 mg/dL (8.7-10.3); Carbon Dioxide 27.5 mmol/L (20.0-27.5); Potassium 3.7 mmol/L (3.5-5.5)
--- NOTE | 2022-02-01 10:11 | P.PN ---
Subjective Progress Note Date: 02/01/22 This is a 76-year-old male who is status post revision right total hip arthroplasty. This is postoperative day #3 and patient is seen and evaluated at bedside today. Patient states that he has been out of bed working on transfers with physical therapy. Patient denies any new complaints today. Objective - Vital Signs Vital signs: Vital Signs Temp 97.8 F 02/01/22 07:44 Pulse 87 02/01/22 07:44 Resp 18 02/01/22 07:44 BP 113/64 02/01/22 07:44 Pulse Ox 93 L 02/01/22 09:34 Intake & Output 01/31/22 02/01/22 02/01/22 18:59 06:59 18:59 Intake Total 700 500 180 Output Total 1250 Balance -550 500 180 Intake: Intake, IV Titration 500 Amount Vancomycin 2,500 mg In 500 Sodium Chloride 0.9% 500 ml 500 ml @ 167 mls/hr IVPB Q12H [facility] Rx#: [id number] Oral 700 180 Output: Urine 1250 Other: Voiding Method Urinal Urinal Urinal # Voids 1 3 - Exam Vital signs are stable. Patient is in no acute distress and is alert and oriented 3. Calf is soft and nontender to palpation. Dressing is intact with mild drainage present. Patient has full foot and ankle motion without pain or difficulty. Sensation intact. Neurovascular status and circulatory status are intact. - Labs CBC & Chem 7: 02/01/22 04:33 02/01/22 04:33 Labs: Abnormal Lab Results - Last 24 Hours (Table) 02/01/22 02/01/22 Range/Units 04:33 04:33 RBC 2.73 L (4.40-5.60) X 10*6/uL Hgb 9.9 L (13.0-17.0) g/dL Hct 29.4 L (39.6-50.0) % MCV 107.7 H (80.0-97.0) fL MCH 36.3 H (27.0-32.0) pg Immature Gran # 0.05 H (0.00-0.04) X 10*3/uL Anion Gap 8.50 L (10.00-18.00) mmol/L Glucose 148 H (70-110) mg/dL Calcium 8.1 L (8.7-10.3) mg/dL Microbiology - Last 24 Hours (Table) 01/29/22 13:13 Gram Stain - Preliminary Hip - Right Wound Culture - Preliminary Group D Enterococcus 01/29/22 13:13 Gram Stain - Preliminary Hip - Right Wound Culture - Preliminary Group D Enterococcus Assessment and Plan Assessment: Status post revision right total hip arthroplasty. (1) Loose total hip arthroplasty Current Visit: Yes Status: Acute Code(s): T84.038A - MECHANICAL LOOSENING OF OTH INTERNAL PROSTHETIC JOINT, INIT; Z96.649 - PRESENCE OF UNSPECIFIED ARTIFICIAL HIP JOINT SNOMED Code(s): 591317347 (2) Status post revision of total hip Current Visit: Yes Status: Acute Code(s): Z96.649 - PRESENCE OF UNSPECIFIED ARTIFICIAL HIP JOINT SNOMED Code(s): 035881113 Plan: Cultures are positive for Group D enterococcus. Awaiting infectious disease consult. Continue routine postop care and pain control. Continue strict hip dislocation precautions and use of abductor pillow for 6 we eks. Continue anticoagulation with aspirin. Toe-touch weightbearing to the right lower extremity with a walker. Leave dressing in place for 10 days. Appreciate input from medicine. Anticipate discharge to rehab possibly Friday.
[2022-02-01] MEDS: VANCOMYCIN 2,500 MG in SODIUM CHLORIDE 0.9% 500 ML 500 ML IVPB SCH (12:05)
[2022-02-01] MEDS: LACTATED RINGERS 1,000 ML IV SCH (16:34)
[2022-02-01] MEDS: SENNOSIDES-DOCUSATE SODIUM 1 EACH TAB PO SCH (19:46)
--- NOTE | 2022-02-01 23:26 | P.CONS ---
History of Present Illness - Reason for Consult Consult date: 02/01/22 Enterococcus joint infection Requesting physician: Pablo Mojica - Chief Complaint Right hip pain x months - History of Present Illness Patient is 76-year-old male seem to have a problem with the right hip pain going on since June 2021 apparently the patient did have a fall prior to that patient did have a compelling outpatient setting including x-rays and bone scan according to the patient no significant normality was found there was an attempted aspiration of the joint which was unsuccessful patient was subsequently admitted to the hospital on 01/29/2021 for revision of right total hip arthroplasty no mentioning of any purulent drainage however cultures were obtained which are now growing Enterococcus that has prompted this infectious disease consultation patient on presentation the hospital was afebrile and no fever has been recorded subsequently patient did have a normal white count and is currently being treated with IV vancomycin, patient has been describing pain to the right hip to be dull aching at times sharp intensity is almost 7-8 out of 10 and worse with walking and weightbearing did not mention significant swelling or redness or any drainage prior to the surgery Review of Systems Positive point has been mentioned in the HPI rest of the systems are negative Past Medical History Past Medical History: Coronary Artery Disease (CAD), CVA/TIA, Hyperlipidemia, Hypertension, Myocardial Infarction (CA), Osteoarthritis (OA) Additional Past Medical History / Comment(s): "leaky heart valve",phlebitis left leg,Hepatitis C-yrs ago Last Myocardial Infarction Date:: unknown History of Any Multi-Drug Resistant Organisms: MRSA Year Discovered:: 11/16/01 MDRO Source:: left hip Past Surgical History: Appendectomy, Heart Catheterization, Joint Replacement, Orthopedic Surgery Additional Past Surgical History / Comment(s): 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 Past Anesthesia/Blood Transfusion Reactions: No Reported Reaction Additional Past Anesthesia/Blood Transfusion Reaction / Comm: no problems with prior blood transfusion Past Psychological History: Depression Smoking Status: Current every day smoker Past Alcohol Use History: Daily Additional Past Alcohol Use History / Comment(s): Drinks 3 beers daily,started smoking at age 19-1ppd Past Drug Use History: None Reported Additional Drug Use History / Comment(s): lives with son - Past Family History Mother Family Medical History: Cancer Father Family Medical History: Deep Vein Thrombosis (DVT) Brother(s) Family Medical History: Deep Vein Thrombosis (DVT), Hypertension Medications and Allergies Home Medications Medication Instructions Recorded Confirmed Type Ascorbic Acid [Vitamin C] 500 mg PO DAILY 10/27/17 01/29/22 History FLUoxetine HCL [PROzac] 60 mg PO QAM 10/27/17 01/29/22 History Furosemide [Lasix] 40 mg PO QAM 10/27/17 01/29/22 History Lovastatin [Mevacor] 20 mg PO DAILY 10/27/17 01/29/22 History Aspirin [Adult Low Dose Aspirin EC] 81 mg PO DAILY 11/02/19 01/25/22 History HYDROcodone/APAP 5-325MG [[place] 1 tab PO DIRECTED PRN 12/13/21 01/29/22 History 5-325] Losartan [Cozaar] 50 mg PO QAM 12/13/21 01/29/22 History Multivit-Min/Folic/Vit K/Lycop 1 each PO DAILY 12/13/21 01/25/22 History [Men's Multivitamin Tablet] metFORMIN HCL [Glucophage] 500 mg PO BID 12/13/21 01/29/22 History Aspirin 325 mg PO BID #60 tab 01/29/22 Rx HYDROcodone/APAP 7.5-325MG [[place] 1 - 2 tab PO Q6H PRN #32 tab 01/29/22 Rx 7.5-325] Ondansetron Odt [Zofran Odt] 1 tab PO Q8HR PRN #10 tab 01/29/22 Rx Sennosides [Senokot] 2 tab PO DAILY PRN #60 tablet 01/29/22 Rx Allergies Allergy/AdvReac Type Severity Reaction Status Date / Time adhesive tape Allergy blisters,ok Verified 01/29/22 10:05 to use paper tape Penicillins Allergy Swelling Verified 01/29/22 10:05 Physical Exam Vitals: Vital Signs Temp Pulse Resp BP Pulse Ox 02/01/22 09:34 93 L 02/01/22 07:44 97.8 F 87 18 113/64 88 L 02/01/22 07:15 18 02/01/22 00:47 99.0 F 73 20 109/65 93 L 01/31/22 18:36 98.9 F 95 18 127/68 92 L 01/31/22 13:52 97.3 F L 85 18 127/65 90 L Intake and Output 01/31/22 02/01/22 02/01/22 22:59 06:59 14:59 Intake Total 250 500 180 Output Total 950 Balance -700 500 180 Intake: Intake, IV Titration 500 Amount Vancomycin 2,500 mg In 500 Sodium Chloride 0.9% 500 ml 500 ml @ 167 mls/hr IVPB Q12H [facility] Rx#: [id number] Oral 250 180 Output: Urine 950 Other: Voiding Method Urinal Urinal # Voids 1 3 GENERAL DESCRIPTION: Elderly male lying in bed, no distress. No tachypnea or accessory muscle of respiration use. HEENT: Shows Pallor , no scleral icterus. Oral mucous membrane is dry. No pharyngeal erythema or thrush NECK: Trachea central, no thyromegaly. LUNGS: Unlabored breathing. Clear to auscultation anteriorly. No wheeze or crackle. HEART: S1, S2, regular rate and rhythm. No loud murmur ABDOMEN: Soft, no tenderness , guarding or rigidity, no organomegaly EXTREMITIES: No edema of feet. SKIN: No rash, no masses palpable. NEUROLOGICAL: The patient is awake, alert, oriented x3, mood and affect normal. Results CBC & Chem 7: 02/01/22 04:33 02/01/22 04:33 Labs: Abnormal Lab Results - Last 24 Hours (Table) 02/01/22 02/01/22 Range/Units 04:33 04:33 RBC 2.73 L (4.40-5.60) X 10*6/uL Hgb 9.9 L (13.0-17.0) g/dL Hct 29.4 L (39.6-50.0) % MCV 107.7 H (80.0-97.0) fL MCH 36.3 H (27.0-32.0) pg Immature Gran # 0.05 H (0.00-0.04) X 10*3/uL Anion Gap 8.50 L (10.00-18.00) mmol/L Glucose 148 H (70-110) mg/dL Calcium 8.1 L (8.7-10.3) mg/dL Microbiology - Last 24 Hours (Table) 01/29/22 13:13 Gram Stain - Preliminary Hip - Right Wound Culture - Preliminary Group D Enterococcus 01/29/22 13:13 Gram Stain - Preliminary Hip - Right Wound Culture - Preliminary Group D Enterococcus Assessment and Plan (1) Infection of right prosthetic hip joint Current Visit: Yes Status: Acute Code(s): T84.51XA - INFECT/INFLM REACTION DUE TO INTERNAL RIGHT HIP PROSTH, INIT SNOMED Code(s): 994427593 Plan: 1patient presented to hospital with right hip pain with initial concern for possible loosening of the prosthesis in this patient was status post revision of the right total hip arthroplasty with the OR cultures not showing Enterococcus with sensitivities pending concerning for underlying deep infection. 2-patient did have penicillin allergy that would limit the number of antibiotics safe to use 3Obtain blood cultures and check a CRP and a sed rate 4-vancomycin pharmacy to dose target trough of 15 while watching kidney function and vancomycin trough closely Patient will likely need a PICC line and outpatient IV antibiotic We will follow on clinical condition and cultures to further adjust medication if needed Thank you for this consultation will follow this patient along with you Time with Patient: Greater than 30
[2022-02-02] MEDS: VANCOMYCIN 2,500 MG in SODIUM CHLORIDE 0.9% 500 ML 500 ML IVPB SCH ×3 (00:33→23:28)
[2022-02-02] MEDS: HYDROcodone/APAP 7.5-325MG 1 EACH TAB PO PRN ×4 (05:03→23:28)
[2022-02-02] MEDS: FUROSEMIDE 40 MG TAB PO SCH (05:05)
[2022-02-02] MEDS: SODIUM CHLORIDE 0.9% 1,000 ML IV SCH ×2 (06:16→07:30)
[2022-02-02 07:19] LABS: African American GFR (CKD) >90 (>60 ml/min/1.73 sqM); Anion Gap -1 mmol/L; Blood Urea Nitrogen 13 mg/dL (9-20); Calcium 7.7 mg/dL (8.4-10.2); Carbon Dioxide 30 mmol/L (22-30); Chloride 107 mmol/L (98-107); Glucose 146 mg/dL (74-99); Non-African American GFR(CKD) >90 (>60 ml/min/1.73 sqM); Potassium 3.6 mmol/L (3.5-5.1); Sodium 136 mmol/L (137-145)
[2022-02-02] MEDS: ASCORBIC ACID 500 MG TAB PO SCH (07:54)
[2022-02-02] MEDS: ASPIRIN 325 MG TAB PO SCH ×2 (07:55→19:50)
[2022-02-02] MEDS: LOSARTAN 50 MG TAB PO SCH (07:55)
[2022-02-02] MEDS: FLUoxetine HCL 20 MG CAP PO SCH (07:55)
[2022-02-02] MEDS: MULTIVITAMINS, THERA 1 EACH TAB PO SCH (07:55)
[2022-02-02] MEDS: ATORVASTATIN 10 MG TAB PO SCH (07:56)
[2022-02-02] MEDS: metFORMIN 500 MG TAB PO SCH ×2 (07:56→19:49)
--- NOTE | 2022-02-02 10:23 | P.PN ---
Subjective Progress Note Date: 02/02/22 This is a 76-year-old male who is status post revision right total hip arthroplasty. This is postoperative day #4 and patient is seen and evaluated at bedside today. Patient denies any new complaints today. Objective - Vital Signs Vital signs: Vital Signs Temp 98.2 F 02/02/22 07:28 Pulse 75 02/02/22 07:28 Resp 17 02/02/22 08:00 BP 107/48 02/02/22 07:28 Pulse Ox 93 L 02/02/22 07:28 Intake & Output 02/01/22 02/02/22 02/02/22 18:59 06:59 18:59 Intake Total 360 180 Output Total 200 900 615 Balance 160 -900 -435 Intake: Oral 360 180 Output: Urine 200 900 615 Other: Voiding Method Urinal Urinal - Exam Vital signs are stable. Patient is in no acute distress and is alert and oriented 3. Calf is soft and nontender to palpation. Dressing is intact with mild drainage present. Patient has full foot and ankle motion without pain or difficulty. Sensation intact. Neurovascular status and circulatory status are intact. - Labs CBC & Chem 7: 02/01/22 04:33 02/02/22 06:33 Labs: Abnormal Lab Results - Last 24 Hours (Table) 02/02/22 Range/Units 06:33 Sodium 136 L (137-145) mmol/L Creatinine 0.60 L (0.66-1.25) mg/dL Glucose 146 H (74-99) mg/dL Calcium 7.7 L (8.4-10.2) mg/dL Microbiology - Last 24 Hours (Table) 01/29/22 13:13 Anaerobic Culture - Preliminary Hip - Right 01/29/22 13:13 Gram Stain - Final Hip - Right Wound Culture - Final Enterococcus avium 01/29/22 13:13 Gram Stain - Preliminary Hip - Right Wound Culture - Preliminary Enterococcus avium 01/29/22 13:13 Anaerobic Culture - Preliminary Hip - Right Assessment and Plan Assessment: Status post revision right total hip arthroplasty. (1) Loose total hip arthroplasty Current Visit: Yes Status: Acute Code(s): T84.038A - MECHANICAL LOOSENING OF OTH INTERNAL PROSTHETIC JOINT, INIT; Z96.649 - PRESENCE OF UNSPECIFIED ARTIFI CIAL HIP JOINT SNOMED Code(s): 849772142 (2) Status post revision of total hip Current Visit: Yes Status: Acute Code(s): Z96.649 - PRESENCE OF UNSPECIFIED ARTIFICIAL HIP JOINT SNOMED Code(s): 004666426 Plan: Cultures are positive for enterococcus avium. Infectious disease to manage antibiotics. He will likely need PICC line. Continue routine postop care and pain control. Continue strict hip dislocation precautions and use of abductor pillow for 6 weeks. Continue anticoagulation with aspirin. Toe-touch weightbearing to the right lower extremity with a walker. Leave dressing in place for 10 days. Appreciate input from medicine. Anticipate discharge to rehab once discharge antibiotics are determined.
[2022-02-02] MEDS: LACTATED RINGERS 1,000 ML IV SCH (14:16)
[2022-02-02] MEDS: SENNOSIDES-DOCUSATE SODIUM 1 EACH TAB PO SCH (19:50)
--- NOTE | 2022-02-02 20:24 | P.PN ---
Subjective Progress Note Date: 02/02/22 Principal diagnosis: right hip infection Patient is a 76-year old male with a chronic right hip pain in this patient status post revision right total hip arthroplasty with the OR culture positive for Enterococcus and concerning for a septic arthritis. On today's evaluation that is 02/02/2022 the patient denies having any fever or any chills, the patient pain to the right hip is currently controlled, the patient denies having any chest pain shortness of breath or cough no abdominal pain no diarrhea Objective - Vital Signs Vital signs: Vital Signs Temp 98.7 F 02/02/22 13:49 Pulse 70 02/02/22 13:49 Resp 17 02/02/22 13:49 BP 101/63 02/02/22 13:49 Pulse Ox 95 02/02/22 13:49 Intake & Output 02/01/22 02/02/22 02/02/22 18:59 06:59 18:59 Intake Total 360 360 Output Total 200 900 615 Balance 160 -900 -255 Intake: Oral 360 360 Output: Urine 200 900 615 Other: Voiding Method Urinal Urinal - Exam GENERAL DESCRIPTION: An elderly male lying in bed in no distress RESPIRATORY SYSTEM: Unlabored breathing , decreased breath sounds at bases HEART: S1 S2 regular rate and rhythm , ABDOMEN: Soft , no tenderness EXTREMITIES: No edema feet - Labs CBC & Chem 7: 02/01/22 04:33 02/02/22 06:33 Labs: Abnormal Lab Results - Last 24 Hours (Table) 02/02/22 Range/Units 06:33 Sodium 136 L (137-145) mmol/L Creatinine 0.60 L (0.66-1.25) mg/dL Glucose 146 H (74-99) mg/dL Calcium 7.7 L (8.4-10.2) mg/dL Microbiology - Last 24 Hours (Table) 01/29/22 13:13 Anaerobic Culture - Preliminary Hip - Right 01/29/22 13:13 Gram Stain - Final Hip - Right Wound Culture - Final Enterococcus avium 01/29/22 13:13 Gram Stain - Preliminary Hip - Right Wound Culture - Preliminary Enterococcus avium 01/29/22 13:13 Anaerobic Culture - Preliminary Hip - Right Assessment and Plan (1) Infection of right prosthetic hip joint Current Visit: Yes Status: Acute Code(s): T84.51XA - INFECT/INFLM REACTION DUE TO INTERNAL RIGHT HIP PROSTH, INIT SNOMED Code(s): 188330178 Plan: 11patient with a right hip septic arthritis in this patient status post revision right hip arthroplasty now with the OR culture positive for Enterococcus, patient did have a penicillin allergy and is covered with vancomycin, patient to continue with vancomycin PICC line and outpatient antibiotic at least 6 weeks and a close outpatient follow-up Time with Patient: Less than 30
[2022-02-03 04:23] LABS: African American GFR (CKD) >90 (>60 ml/min/1.73 sqM); Anion Gap 3 mmol/L; Blood Urea Nitrogen 14 mg/dL (9-20); Calcium 7.7 mg/dL (8.4-10.2); Carbon Dioxide 27 mmol/L (22-30); Chloride 107 mmol/L (98-107); Glucose 130 mg/dL (74-99); Non-African American GFR(CKD) >90 (>60 ml/min/1.73 sqM); Potassium 3.6 mmol/L (3.5-5.1); Sodium 137 mmol/L (137-145)
[2022-02-03] MEDS: metFORMIN 500 MG TAB PO SCH ×2 (09:32→20:39)
[2022-02-03] MEDS: FLUoxetine HCL 20 MG CAP PO SCH (09:32)
[2022-02-03] MEDS: ASPIRIN 325 MG TAB PO SCH ×2 (09:33→20:39)
[2022-02-03] MEDS: ASCORBIC ACID 500 MG TAB PO SCH (09:33)
[2022-02-03] MEDS: FUROSEMIDE 40 MG TAB PO SCH (09:33)
[2022-02-03] MEDS: ATORVASTATIN 10 MG TAB PO SCH (09:33)
[2022-02-03] MEDS: MULTIVITAMINS, THERA 1 EACH TAB PO SCH (09:33)
[2022-02-03] MEDS: LOSARTAN 50 MG TAB PO SCH (09:33)
[2022-02-03] MEDS: HYDROcodone/APAP 7.5-325MG 1 EACH TAB PO PRN ×2 (09:39→20:39)
[2022-02-03] MEDS: SODIUM CHLORIDE 0.9% 1,000 ML IV SCH (09:48)
--- NOTE | 2022-02-03 09:57 | P.PN ---
Subjective Progress Note Date: 02/03/22 This is a 76-year-old male who is status post revision right total hip arthroplasty. This is postoperative day #5 and patient is seen and evaluated at bedside today. Patient denies any new complaints today. Objective - Vital Signs Vital signs: Vital Signs Temp 98.7 F 02/03/22 08:00 Pulse 71 02/03/22 08:00 Resp 18 02/03/22 08:00 BP 170/71 02/03/22 08:00 Pulse Ox 94 L 02/03/22 08:00 Intake & Output 02/02/22 02/03/22 02/03/22 18:59 06:59 18:59 Intake Total 360 300 Output Total 615 200 Balance -255 100 Intake: Oral 360 300 Output: Urine 615 200 Other: Voiding Method Urinal Urinal Urinal - Exam Vital signs are stable. Patient is in no acute distress and is alert and oriented 3. Calf is soft and nontender to palpation. Dressing is intact with mild drainage present. Patient has full foot and ankle motion without pain or difficulty. Sensation intact. Neurovascular status and circulatory status are intact. - Labs CBC & Chem 7: 02/01/22 04:33 02/03/22 03:01 Labs: Abnormal Lab Results - Last 24 Hours (Table) 02/03/22 Range/Units 03:01 Creatinine 0.60 L (0.66-1.25) mg/dL Glucose 130 H (74-99) mg/dL Calcium 7.7 L (8.4-10.2) mg/dL Microbiology - Last 24 Hours (Table) 01/29/22 13:13 Gram Stain - Final Hip - Right Wound Culture - Final Enterococcus avium 02/01/22 14:26 Blood Culture - Preliminary Blood No Growth after 24 hours 01/29/22 13:13 Anaerobic Culture - Final Hip - Right 01/29/22 13:13 Anaerobic Culture - Final Hip - Right Assessment and Plan Assessment: Status post revision right total hip arthroplasty. (1) Loose total hip arthroplasty Current Visit: Yes Status: Acute Code(s): T84.038A - MECHANICAL LOOSENING OF OTH INTERNAL PROSTHETIC JOINT, INIT; Z96.649 - PRESENCE OF UNSPECIFIED ARTIFICIAL HIP JOINT SNOMED Code(s): 439346686 (2) Status post revision of total hip Current Visit: Yes Status: Acute Code(s): Z96.649 - PRESENCE OF UNSPECIFIED ARTIFICIAL HIP JOINT SNOMED Code(s): 627570251 Plan: Cultures are positive for enterococcus avium. Infectious disease to manage antibiotics. Awaiting PICC line. Continue routine postop care and pain control. Continue strict hip dislocation precautions and use of abductor pillow for 6 weeks. Continue anticoagulation with aspirin. Toe-touch weightbearing to the right lower extremity with a walker. Dressing to be changed today. Appreciate input from medicine. Anticipate discharge to rehab once discharge antibiotics are determined.
[2022-02-03] MEDS: LACTATED RINGERS 1,000 ML IV SCH (10:19)
[2022-02-03] MEDS ORDERED: VANCOMYCIN TROUGH DUE 1 EACH MISC MISCELLANE ONE (12:00)
[2022-02-03 12:33] LABS: Basophils # (A) 0.02 X 10*3/uL (0.00-0.10); Basophils % (A) 0.4 %; Eosinophils # (A) 0.42 X 10*3/uL (0.04-0.35); Eosinophils % (A) 8.5 %; HCT 29.5 % (39.6-50.0); HGB 9.4 g/dL (13.0-17.0); Lymphocytes # (A) 0.86 X 10*3/uL (0.90-5.00); Lymphocytes % (A) 17.5 %; MCH 34.8 pg (27.0-32.0); MCHC 31.9 g/dL (32.0-37.0); MCV 109.3 fL (80.0-97.0); Mean Platelet Volume 9.6 fL (9.5-12.2); Monocytes # (A) 0.58 X 10*3/uL (0.20-1.00); Monocytes % (A) 11.8 %; NRBC Per 100 WBC 0 /100 WBCS (0.0-0.0); Neutrophils # (A) 2.99 X 10*3/uL (1.80-7.70); Neutrophils % (A) 60.8 %; Platelet Count 188 X 10*3/uL (140-440); WBC 4.92 X 10*3/uL (4.50-10.00)
[2022-02-03] MEDS: VANCOMYCIN 2,500 MG in SODIUM CHLORIDE 0.9% 500 ML 500 ML IVPB SCH (13:42)
[2022-02-03] MEDS: SENNOSIDES-DOCUSATE SODIUM 1 EACH TAB PO SCH (20:39)
--- NOTE | 2022-02-03 23:15 | P.PN ---
Subjective Progress Note Date: 02/03/22 Principal diagnosis: right hip infection Patient is a 76-year old male with a chronic right hip pain in this patient status post revision right total hip arthroplasty with the OR culture positive for Enterococcus and concerning for a septic arthritis. On today's evaluation that is 02/03/2022 the patient remains to be afebrile, the patient pain to the right hip is currently controlled, the patient denies chest pain shortness of breath or cough no abdominal pain no diarrhea Objective - Vital Signs Vital signs: Vital Signs Temp 98.7 F 02/03/22 08:00 Pulse 71 02/03/22 08:00 Resp 18 02/03/22 08:00 BP 170/71 02/03/22 08:00 Pulse Ox 94 L 02/03/22 08:00 Intake & Output 02/02/22 02/03/22 02/03/22 18:59 06:59 18:59 Intake Total 360 300 Output Total 615 200 Balance -255 100 Intake: Oral 360 300 Output: Urine 615 200 Other: Voiding Method Urinal Urinal Urinal - Exam GENERAL DESCRIPTION: An elderly male lying in bed in no distress RESPIRATORY SYSTEM: Unlabored breathing , decreased breath sounds at bases HEART: S1 S2 regular rate and rhythm , ABDOMEN: Soft , no tenderness EXTREMITIES: No edema feet - Labs CBC & Chem 7: 02/03/22 03:01 02/03/22 03:01 Labs: Abnormal Lab Results - Last 24 Hours (Table) 02/03/22 02/03/22 Range/Units 03:01 03:01 RBC 2.70 L (4.40-5.60) X 10*6/uL Hgb 9.4 L (13.0-17.0) g/dL Hct 29.5 L (39.6-50.0) % MCV 109.3 H (80.0-97.0) fL MCH 34.8 H (27.0-32.0) pg MCHC 31.9 L (32.0-37.0) g/dL Immature Gran # 0.05 H (0.00-0.04) X 10*3/uL Lymphocytes # 0.86 L (0.90-5.00) X 10*3/uL Eosinophils # 0.42 H (0.04-0.35) X 10*3/uL Creatinine 0.60 L (0.66-1.25) mg/dL Glucose 130 H (74-99) mg/dL Calcium 7.7 L (8.4-10.2) mg/dL Microbiology - Last 24 Hours (Table) 01/29/22 13:13 Gram Stain - Final Hip - Right Wound Culture - Final Enterococcus avium 02/01/22 14:26 Blood Culture - Preliminary Blood No Growth after 24 hours 01/29/22 13:13 Anaerobic Culture - Final Hip - Right 01/29/22 13:13 Anaerobic Culture - Final Hip - Right Assessment and Plan (1) Infection of right prosthetic hip joint Current Visit: Yes Status: Acute Code(s): T84.51XA - INFECT/INFLM REACTION DUE TO INTERNAL RIGHT HIP PROSTH, INIT SNOMED Code(s): 392795539 Plan: 11patient with a right hip septic arthritis in this patient status post revision right hip arthroplasty now with the OR culture positive for Enterococcus, patient did have a penicillin allergy and is covered with vancomycin, patient to continue with vancomycin PICC line has been ordered for the a.m. and patient will need outpatient antibiotic at least 6 weeks and a close outpatient follow-up
[2022-02-04] MEDS: VANCOMYCIN 2,500 MG in SODIUM CHLORIDE 0.9% 500 ML 500 ML IVPB SCH ×2 (00:08→14:28)
[2022-02-04] MEDS: SODIUM CHLORIDE 0.9% 1,000 ML IV SCH ×2 (00:24→10:41)
--- NOTE | 2022-02-04 01:43 | P.PN ---
Subjective Progress Note Date: 02/01/22 Patient is a 76-year-old male with a known history of coronary artery disease, history of CVA/TIA, hypertension, hyperlipidemia, history of [place], prior history of left hip arthroplasty and bilateral knee arthroplasty, depression, currently everyday smoker and daily alcohol use admitted to hospital for right hip arthroplasty revision. Patient underwent loose femoral stem right total hip arthroplasty. Currently denies any complaints of worsening pain. No complaints of chest pain or shortness of breath. No nausea vomiting or abdominal pain or diarrhea. Denies any dysuria or hematuria. No cough or sputum production. Laboratory data showed WBC 6.1 hemoglobin 13.8 MCV 1090.3 and platelets 186 01/31/2022 Patient is currently sitting in the chair. Awake alert and oriented x3. No complaints of chest pain or shortness of breath. Diet pain is controlled with medications. No fever no chills. No cough or sputum production. Blood pressure is elevated this morning but is controlled currently after medications. Patient is being continued on PT OT. Possible discharge to rehab.Wound cultures from the right hip showed group 3 Enterococcus species. 02/01/2022 Patient is currently sitting in the chair comfortably. Awake alert and oriented x3. Right hip pain is controlled with medications. Otherwise patient is being continued on antibiotics above vancomycin due to Enterococcus wound cultures. Patient has been afebrile. No cough or sputum production. No headache or dizziness or lightheadedness. Laboratory showed WBC 6.47 hemoglobin 9.9 and platelets 148 Sodium 138 potassium 3.7 chloride 102 bicarb is 27.5 BUN 10 and creatinine 0.7 and calcium 8.1 ID is on board. Current medications reviewed. Objective - Vital Signs Vital signs: Vital Signs Temp 97.8 F 02/01/22 07:44 Pulse 87 02/01/22 07:44 Resp 18 02/01/22 07:44 BP 113/64 02/01/22 07:44 Pulse Ox 93 L 02/01/22 09:34 Intake & Output 01/31/22 02/01/22 02/01/22 18:59 06:59 18:59 Intake Total 700 500 180 Output Total 1250 Balance -550 500 180 Intake: Intake, IV Titration 500 Amount Vancomycin 2,500 mg In 500 Sodium Chloride 0.9% 500 ml 500 ml @ 167 mls/hr IVPB Q12H [facility] Rx#: [id number] Oral 700 180 Output: Urine 1250 Other: Voiding Method Urinal Urinal Urinal # Voids 1 3 - Exam PHYSICAL EXAMINATION: Patient is lying in the bed comfortably, no acute distress, awake alert and oriented.. HEENT: Normocephalic. Neck is supple. Pupils reactive. Nostrils clear. Oral cavity is moist. Neck reveals no JVD, carotid bruits, or thyromegaly. CHEST EXAMINATION: Trachea is central. Symmetrical expansion. Lung murphy clear to auscultation and percussion. CARDIAC: Normal S1, S2 with no gallops. No murmurs ABDOMEN: Soft. Bowel sounds normal. No organomegaly. No abdominal bruits. Extremities: Bilateral lower extremity trace edema. No clubbing or cyanosis Neurologically awake, alert, oriented x3 with well-coordinated movements. No focal deficits noted Skin: No rash or skin lesions. Bilateral lower activity skin discoloration and loss of hair. Psychiatric: Coperative. Nonsuicidal Musculoskeletal: No joint swelling or deformity. Normal range of motion. Right hip surgical site bandaged. - Labs CBC & Chem 7: 02/03/22 03:01 02/03/22 03:01 Labs: Abnormal Lab Results - Last 24 Hours (Table) 02/01/22 02/01/22 Range/Units 04:33 04:33 RBC 2.73 L (4.40-5.60) X 10*6/uL Hgb 9.9 L (13.0-17.0) g/dL Hct 29.4 L (39.6-50.0) % MCV 107.7 H (80.0-97.0) fL MCH 36.3 H (27.0-32.0) pg Immature Gran # 0.05 H (0.00-0.04) X 10*3/uL Anion Gap 8.50 L (10.00-18.00) mmol/L Glucose 148 H (70-110) mg/dL Calcium 8.1 L (8.7-10.3) mg/dL Microbiology - Last 24 Hours (Table) 01/29/22 13:13 Gram Stain - Preliminary Hip - Right Wound Culture - Preliminary Group D Enterococcus 01/29/22 13:13 Gram Stain - Preliminary Hip - Right Wound Culture - Preliminary Group D Enterococcus Assessment and Plan Assessment: Status post right hip arthroplastyrevisiondue to loose femoral stem.postoperative day 3 Hip joint infection. Wound cultures showed Enterococcus species. 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 Continue with Lasix and losartan. Continue with insulin sliding scale and metformin for blood sugar control. Patient was started on vancomycin and ID consulted. Patient is allergic to penicillins. Follow-up final culture report. X-rays PTOT and follow up closely. Monitor for any alcohol withdrawal symptoms.
--- NOTE | 2022-02-04 01:45 | P.PN ---
Subjective Progress Note Date: 02/02/22 Patient is a 76-year-old male with a known history of coronary artery disease, history of CVA/TIA, hypertension, hyperlipidemia, history of [place], prior history of left hip arthroplasty and bilateral knee arthroplasty, depression, currently everyday smoker and daily alcohol use admitted to hospital for right hip arthroplasty revision. Patient underwent loose femoral stem right total hip arthroplasty. Currently denies any complaints of worsening pain. No complaints of chest pain or shortness of breath. No nausea vomiting or abdominal pain or diarrhea. Denies any dysuria or hematuria. No cough or sputum production. Laboratory data showed WBC 6.1 hemoglobin 13.8 MCV 1090.3 and platelets 186 01/31/2022 Patient is currently sitting in the chair. Awake alert and oriented x3. No complaints of chest pain or shortness of breath. Diet pain is controlled with medications. No fever no chills. No cough or sputum production. Blood pressure is elevated this morning but is controlled currently after medications. Patient is being continued on PT OT. Possible discharge to rehab.Wound cultures from the right hip showed group 3 Enterococcus species. 02/01/2022 Patient is currently sitting in the chair comfortably. Awake alert and oriented x3. Right hip pain is controlled with medications. Otherwise patient is being continued on antibiotics above vancomycin due to Enterococcus wound cultures. Patient has been afebrile. No cough or sputum production. No headache or dizziness or lightheadedness. Laboratory showed WBC 6.47 hemoglobin 9.9 and platelets 148 Sodium 138 potassium 3.7 chloride 102 bicarb is 27.5 BUN 10 and creatinine 0.7 and calcium 8.1 ID is on board. 02/02/2022 Patient is resting in bed comfortably. Awake alert oriented x3. No fever no chills. No cough or production. No headache or dizziness lightheadedness. No chest pain or shortness breath. Patient has been afebrile. Continued on antibiotics now for vancomycin. Patient will need PICC line possible rehab transfer for completion of antibiotics for prostatitis and infection.. Current medications reviewed. Objective - Vital Signs Vital signs: Vital Signs Temp 99.6 F 02/02/22 20:00 Pulse 69 02/02/22 20:00 Resp 16 02/02/22 20:00 BP 135/71 02/02/22 20:00 Pulse Ox 95 02/02/22 20:00 Intake & Output 02/02/22 02/02/22 02/03/22 06:59 18:59 06:59 Intake Total 360 Output Total 900 615 200 Balance -900 -255 -200 Intake: Oral 360 Output: Urine 900 615 200 Other: Voiding Method Urinal - Exam PHYSICAL EXAMINATION: Patient is lying in the bed comfortably, no acute distress, awake alert and oriented.. HEENT: Normocephalic. Neck is supple. Pupils reactive. Nostrils clear. Oral cavity is moist. Neck reveals no JVD, carotid bruits, or thyromegaly. CHEST EXAMINATION: Trachea is central. Symmetrical expansion. Lung murphy clear to auscultation and percussion. CARDIAC: Normal S1, S2 with no gallops. No murmurs ABDOMEN: Soft. Bowel sounds normal. No organomegaly. No abdominal bruits. Extremities: Bilateral lower extremity trace edema. No clubbing or cyanosis Neurologically awake, alert, oriented x3 with well-coordinated movements. No focal deficits noted Skin: No rash or skin lesions. Bilateral lower activity skin discoloration and loss of hair. Psychiatric: Coperative. Nonsuicidal Musculoskeletal: No joint swelling or deformity. Normal range of motion. Right hip surgical site bandaged. - Labs CBC & Chem 7: 02/03/22 03:01 02/03/22 03:01 Labs: Abnormal Lab Results - Last 24 Hours (Table) 02/02/22 Range/Units 06:33 Sodium 136 L (137-145) mmol/L Creatinine 0.60 L (0.66-1.25) mg/dL Glucose 146 H (74-99) mg/dL Calcium 7.7 L (8.4-10.2) mg/dL Microbiology - Last 24 Hours (Table) 02/01/22 14:26 Blood Culture - Preliminary Blood No Growth after 24 hours 01/29/22 13:13 Anaerobic Culture - Final Hip - Right 01/29/22 13:13 Anaerobic Culture - Final Hip - Right Assessment and Plan Assessment: Status post right hip arthroplastyrevisiondue to loose femoral stem.postoperative day 4 Prosthetic Hip joint infection. Wound cultures showed Enterococcus species. Hypertension Diabetes type 2 [id number] Hyperlipidemia History of CO status post cardiac catheterization Ongoing nicotine addiction D alcohol use Macrocytosis secondary to alcohol use Osteoarthritis Hepatitis C history Anxiety/depressionbilateral lower extremity venous stasis DVT prophylaxis Plan: Patient will be continued on pain management, bowel regimen and incentive spirometry. Continue with Lasix and losartan. Continue with insulin sliding scale and metformin for blood sugar control. Patient was started on vancomycin and ID consulted. Patient is allergic to penicillins. Follow-up final culture report. X-rays PTOT and follow up closely. Monitor for any alcohol withdrawal symptoms.
--- NOTE | 2022-02-04 01:48 | P.PN ---
Subjective Progress Note Date: 02/03/22 Patient is a 76-year-old male with a known history of coronary artery disease, history of CVA/TIA, hypertension, hyperlipidemia, history of [place], prior history of left hip arthroplasty and bilateral knee arthroplasty, depression, currently everyday smoker and daily alcohol use admitted to hospital for right hip arthroplasty revision. Patient underwent loose femoral stem right total hip arthroplasty. Currently denies any complaints of worsening pain. No complaints of chest pain or shortness of breath. No nausea vomiting or abdominal pain or diarrhea. Denies any dysuria or hematuria. No cough or sputum production. Laboratory data showed WBC 6.1 hemoglobin 13.8 MCV 1090.3 and platelets 186 01/31/2022 Patient is currently sitting in the chair. Awake alert and oriented x3. No complaints of chest pain or shortness of breath. Diet pain is controlled with medications. No fever no chills. No cough or sputum production. Blood pressure is elevated this morning but is controlled currently after medications. Patient is being continued on PT OT. Possible discharge to rehab.Wound cultures from the right hip showed group 3 Enterococcus species. 02/01/2022 Patient is currently sitting in the chair comfortably. Awake alert and oriented x3. Right hip pain is controlled with medications. Otherwise patient is being continued on antibiotics above vancomycin due to Enterococcus wound cultures. Patient has been afebrile. No cough or sputum production. No headache or dizziness or lightheadedness. Laboratory showed WBC 6.47 hemoglobin 9.9 and platelets 148 Sodium 138 potassium 3.7 chloride 102 bicarb is 27.5 BUN 10 and creatinine 0.7 and calcium 8.1 ID is on board. 02/03/2022 Patient is resting in the chair. Awake alert and oriented x3. No cough or sputum production. No fever no chills. During the complaints of right hip pain. Pain is controlled with medications. No chest pain or shortness breath. No fever no chills. No cough or sputum production. Patient is being continued on vancomycin due to right hip prostate joint infection. Patient will need PICC line and possible rehab transfer. ID is on board. No other acute overnight issues. Laboratory data showed WBC 4.9 hemoglobin 9.4 and platelets 188 sodium 137 potassium 3.6 chloride 107 bicarb 27 BUN 49 creatinine 0.6 and calcium 7.7 Current medications reviewed. Objective - Vital Signs Vital signs: Vital Signs Temp 98.6 F 03/20/22 14:10 Pulse 75 02/03/22 14:10 Resp 18 02/03/22 14:10 BP 155/62 02/03/22 14:10 Pulse Ox 96 02/03/22 14:10 Intake & Output 02/02/22 02/03/22 02/03/22 18:59 06:59 18:59 Intake Total 846 328 0434 Output Total 615 200 Balance -118 969 7698 Intake: IV 1130 Sodium Chloride 0.9% 1, 630 000 ml @ 70 mls/hr IV . [id number] [facility] Rx#:[id number] Vancomycin 2,500 mg In 500 Sodium Chloride 0.9% 500 ml 500 ml @ 167 mls/hr IVPB Q12H [facility] Rx#: [id number] Oral 360 300 Output: Urine 615 200 Other: Voiding Method Urinal Urinal Urinal - Exam PHYSICAL EXAMINATION: Patient is lying in the bed comfortably, no acute distress, awake alert and oriented.. HEENT: Normocephalic. Neck is supple. Pupils reactive. Nostrils clear. Oral cavity is moist. Neck reveals no JVD, carotid bruits, or thyromegaly. CHEST EXAMINATION: Trachea is central. Symmetrical expansion. Lung murphy clear to auscultation and percussion. CARDIAC: Normal S1, S2 with no gallops. No murmurs ABDOMEN: Soft. Bowel sounds normal. No organomegaly. No abdominal bruits. Extremities: Bilateral lower extremity trace edema. No clubbing or cyanosis Neurologically awake, alert, oriented x3 with well-coordinated movements. No focal deficits noted Skin: No rash or skin lesions. Bilateral lower activity skin discoloration and loss of hair. Psychiatric: Coperative. Nonsuicidal Musculoskeletal: No joint swelling or deformity. Normal range of motion. Right hip surgical site bandaged. - Labs CBC & Chem 7: 02/03/22 03:01 02/03/22 03:01 Labs: Abnormal Lab Results - Last 24 Hours (Table) 02/03/22 02/03/22 Range/Units 03:01 03:01 RBC 2.70 L (4.40-5.60) X 10*6/uL Hgb 9.4 L (13.0-17.0) g/dL Hct 29.5 L (39.6-50.0) % MCV 109.3 H (80.0-97.0) fL MCH 34.8 H (27.0-32.0) pg MCHC 31.9 L (32.0-37.0) g/dL Immature Gran # 0.05 H (0.00-0.04) X 10*3/uL Lymphocytes # 0.86 L (0.90-5.00) X 10*3/uL Eosinophils # 0.42 H (0.04-0.35) X 10*3/uL Creatinine 0.60 L (0.66-1.25) mg/dL Glucose 130 H (74-99) mg/dL Calcium 7.7 L (8.4-10.2) mg/dL Microbiology - Last 24 Hours (Table) 02/01/22 14:26 Blood Culture - Preliminary Blood No Growth after 48 hours 01/29/22 13:13 Gram Stain - Final Hip - Right Wound Culture - Final Enterococcus avium 01/29/22 13:13 Anaerobic Culture - Final Hip - Right 01/29/22 13:13 Anaerobic Culture - Final Hip - Right Assessment and Plan Assessment: Status post right hip arthroplastyrevisiondue to loose femoral stem.postope rative day 5 Hip joint infection. Wound cultures showed Enterococcus avium. 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 Continue with Lasix and losartan. Continue with insulin sliding scale and metformin for blood sugar control. Patient was started on vancomycin and ID consulted. Patient is allergic to penicillins. X-rays PTOT and follow up closely. Monitor for any alcohol withdrawal symptoms. Time with Patient: Greater than 30
[2022-02-04 05:43] LABS: African American GFR (CKD) >90 (>60 ml/min/1.73 sqM); Anion Gap 4 mmol/L; Blood Urea Nitrogen 13 mg/dL (9-20); Calcium 7.9 mg/dL (8.4-10.2); Carbon Dioxide 26 mmol/L (22-30); Chloride 107 mmol/L (98-107); Glucose 140 mg/dL (74-99); Non-African American GFR(CKD) >90 (>60 ml/min/1.73 sqM); Potassium 3.9 mmol/L (3.5-5.1); Sodium 137 mmol/L (137-145)
[2022-02-04 06:40] LABS: C Reactive Protein 16.4 mg/dL (<1.0)
[2022-02-04] MEDS: ASCORBIC ACID 500 MG TAB PO SCH (07:51)
[2022-02-04] MEDS: metFORMIN 500 MG TAB PO SCH ×2 (07:52→21:31)
[2022-02-04] MEDS: FLUoxetine HCL 20 MG CAP PO SCH (07:52)
[2022-02-04] MEDS: ASPIRIN 325 MG TAB PO SCH ×2 (07:52→21:31)
[2022-02-04] MEDS: FUROSEMIDE 40 MG TAB PO SCH (07:52)
[2022-02-04] MEDS: MULTIVITAMINS, THERA 1 EACH TAB PO SCH (07:52)
[2022-02-04] MEDS: ATORVASTATIN 10 MG TAB PO SCH (07:52)
[2022-02-04] MEDS: LOSARTAN 50 MG TAB PO SCH (07:52)
[2022-02-04] MEDS: HYDROcodone/APAP 7.5-325MG 1 EACH TAB PO PRN ×3 (07:55→21:32)
[2022-02-04 09:06] LABS: Basophils # (A) 0.01 X 10*3/uL (0.00-0.10); Basophils % (A) 0.2 %; Eosinophils # (A) 0.42 X 10*3/uL (0.04-0.35); Eosinophils % (A) 7.5 %; HCT 29.2 % (39.6-50.0); HGB 9.4 g/dL (13.0-17.0); Immature Grans, Automated 1.3 %; Lymphocytes # (A) 0.65 X 10*3/uL (0.90-5.00); Lymphocytes % (A) 11.7 %; MCH 35.3 pg (27.0-32.0); MCHC 32.2 g/dL (32.0-37.0); MCV 109.8 fL (80.0-97.0); Mean Platelet Volume 9.3 fL (9.5-12.2); Monocytes # (A) 0.84 X 10*3/uL (0.20-1.00); Monocytes % (A) 15.1 %; NRBC Per 100 WBC 0 /100 WBCS (0.0-0.0); Neutrophils # (A) 3.58 X 10*3/uL (1.80-7.70); Neutrophils % (A) 64.2 %; Platelet Count 219 X 10*3/uL (140-440); RBC 2.66 X 10*6/uL (4.40-5.60); RDW 13.9 % (11.5-14.5); WBC 5.57 X 10*3/uL (4.50-10.00)
[2022-02-04 10:11] LABS: Erythrocyte Sedimentation Rate 91 mm/Hr (0-20)
[2022-02-04 11:22] LABS: INR 0.93 (0.90-1.11); Prothrombin Time 10.5 sec (9.9-11.9)
--- NOTE | 2022-02-04 13:08 | P.DS ---
Providers Date of admission: 01/29/22 09:46 Expected date of discharge: 02/04/22 Attending physician: Jeff Mathew Consults: 01/29/22 15:37 Consult Physician Routine Consulting Provider: Osbaldo Tavarez Consult Reason/Comments: medical management Do you want consulting provider notified?: Yes 01/31/22 23:38 Consult Physician Routine Consulting Provider: Rafael Rivera Consult Reason/Comments: Enterococcus joint infection Do you want consulting provider notified?: Yes, Notify in am Primary care physician: Preet Jojo - Discharge Diagnosis(es) (1) Loose total hip arthroplasty Current Visit: Yes Status: Acute (2) Status post revision of total hip Current Visit: Yes Status: Acute Hospital Course: This is a 76-year-old male with known history of right total hip arthroplasty. The patient presented for evaluation as an outpatient due to increased pain and loosening of the femoral stem along with possible infection was suspected.. After discussion and consideration patient elects to proceed with revision right total hip arthroplasty. The patient is seen preoperatively by Dr. Mathew and medically cleared for surgery by their primary care physician and cardiology. Patient is admitted to [facility] on 01/29/2022 for revision right total hip arthroplasty. The procedure is performed without complication or sequelae. The patient is doing well postoperatively. Labs and vital signs are stable on day of discharge. The patient's cultures did come back positive for enterococcus and infectious disease is managing antibiotics. Patient had a PICC line placed during this admission. On day of discharge patient's hip incision is healing well. There is minimal erythema. There is no drainage noted at this time. There is minimal soft tissue swelling to the hip and thigh. Patient has full foot and ankle motion without difficulty or pain. Calf is soft and nontender to palpation. Neurovascular status to the right lower extremity is intact. Patient is discharged rehab in good condition. Please see med rec for accurate list of home medications. Plan - Discharge Summary Discharge Rx Participant: No New Discharge Prescriptions: New HYDROcodone/APAP 7.5-325MG [[place] 7.5-325] 1 - 2 tab PO Q6H PRN #32 tab PRN Reason: Pain Sennosides [Senokot] 2 tab PO DAILY PRN #60 tablet PRN Reason: Constipation Ondansetron Odt [Zofran Odt] 1 tab PO Q8HR PRN #10 tab PRN Reason: Nausea Aspirin 325 mg PO BID #60 tab No Action Ascorbic Acid [Vitamin C] 500 mg PO DAILY Lovastatin [Mevacor] 20 mg PO DAILY Furosemide [Lasix] 40 mg PO QAM FLUoxetine HCL [PROzac] 60 mg PO QAM Aspirin [Adult Low Dose Aspirin EC] 81 mg PO DAILY Multivit-Min/Folic/Vit K/Lycop [Men's Multivitamin Tablet] 1 each PO DAILY HYDROcodone/APAP 5-325MG [[place] 5-325] 1 tab PO DIRECTED PRN PRN Reason: Pain metFORMIN HCL [Glucophage] 500 mg PO BID Losartan [Cozaar] 50 mg PO QAM Discharge Medication List Ascorbic Acid [Vitamin C] 500 mg PO DAILY 10/27/17 [History] FLUoxetine HCL [PROzac] 60 mg PO QAM 10/27/17 [History] Furosemide [Lasix] 40 mg PO QAM 10/27/17 [History] Lovastatin [Mevacor] 20 mg PO DAILY 10/27/17 [History] Aspirin [Adult Low Dose Aspirin EC] 81 mg PO DAILY 11/02/19 [History] HYDROcodone/APAP 5-325MG [[place] 5-325] 1 tab PO DIRECTED PRN 12/13/21 [History] Losartan [Cozaar] 50 mg PO QAM 12/13/21 [History] Multivit-Min/Folic/Vit K/Lycop [Men's Multivitamin Tablet] 1 each PO DAILY 12/13/21 [History] metFORMIN HCL [Glucophage] 500 mg PO BID 12/13/21 [History] Aspirin 325 mg PO BID #60 tab 01/29/22 [Rx] HYDROcodone/APAP 7.5-325MG [[place] 7.5-325] 1 - 2 tab PO Q6H PRN #32 tab 01/29/22 [Rx] Ondansetron Odt [Zofran Odt] 1 tab PO Q8HR PRN #10 tab 01/29/22 [Rx] Sennosides [Senokot] 2 tab PO DAILY PRN #60 tablet 01/29/22 [Rx] Follow up Appointment(s)/Referral(s): Jeff Mathew DO [Doctor of Osteopathic Medicine] - 02/14/22 2:45 pm (With [facility]) Activity/Diet/Wound Care/Special Instructions: Toe-touch weightbearing to the right lower extremity with a walker. Strict hip dislocation precautions. Abductor pillow to be worn at all times when resting or sleeping. Leave dressing intact. Dressing may be removed by home care nurse or by patient in 7 days. Then change dressing twice daily until follow up. May shower with initial dressing intact and after removal. If dressing become saturated, please remove. Carmelo to be removed in 10-14 days. Please take aspirin 325mg twice daily for 30 days to prevent blood clots. Recommend use of compression stockings daily until follow up to help prevent swelling and blood clots. May remove at night before sleeping. Please follow-up with [facility] in 2 weeks and call with any questions or concerns, . Discharge Disposition: TRANSFER TO SNF/ECF
--- NOTE | 2022-02-04 14:16 | P.PN ---
Subjective Progress Note Date: 02/04/22 Patient is a 76-year-old male with a known history of coronary artery disease, history of CVA/TIA, hypertension, hyperlipidemia, history of CT, prior history of left hip arthroplasty and bilateral knee arthroplasty, depression, currently everyday smoker and daily alcohol use admitted to hospital for right hip arthroplasty revision. Patient underwent loose femoral stem right total hip arthroplasty. Currently denies any complaints of worsening pain. No complaints of chest pain or shortness of breath. No nausea vomiting or abdominal pain or diarrhea. Denies any dysuria or hematuria. No cough or sputum production. Laboratory data showed WBC 6.1 hemoglobin 13.8 MCV 1090.3 and platelets 186 01/31/2022 Patient is currently sitting in the chair. Awake alert and oriented x3. No complaints of chest pain or shortness of breath. Diet pain is controlled with medications. No fever no chills. No cough or sputum production. Blood pressure is elevated this morning but is controlled currently after medications. Patient is being continued on PT OT. Possible discharge to rehab.Wound cultures from the right hip showed group 3 Enterococcus species. 02/01/2022 Patient is currently sitting in the chair comfortably. Awake alert and oriented x3. Right hip pain is controlled with medications. Otherwise patient is being continued on antibiotics above vancomycin due to Enterococcus wound cultures. Patient has been afebrile. No cough or sputum production. No headache or dizziness or lightheadedness. Laboratory showed WBC 6.47 hemoglobin 9.9 and platelets 148 Sodium 138 potassium 3.7 chloride 102 bicarb is 27.5 BUN 10 and creatinine 0.7 and calcium 8.1 ID is on board. 02/03/2022 Patient is resting in the chair. Awake alert and oriented x3. No cough or sputum production. No fever no chills. During the complaints of right hip pain. Pain is controlled with medications. No chest pain or shortness breath. No fever no chills. No cough or sputum production. Patient is being continued on vancomycin due to right hip prostate joint infection. Patient will need PICC line and possible rehab transfer. ID is on board. No other acute overnight issues. Laboratory data showed WBC 4.9 hemoglobin 9.4 and platelets 188 sodium 137 potassium 3.6 chloride 107 bicarb 27 BUN 49 creatinine 0.6 and calcium 7.7 02/04/2022 Patient was seen and evaluated in follow-up this morning currently sitting up in the chair. Per patient report he is to receive a PICC line today and will continue on IV antibiotics status post right hip prosthesis joint infection. Patient being closely monitored and followed by orthopedics and plan is for discharge to [facility] rehab for continued PT/OT therapy and IV antibiotic management. Patient will follow-up with infectious disease Dr. Rivera in the ou tpatie setting. Patient denies any chest pain or shortness of breath. Patient is afebrile. Patient reports to passing gas and tolerating diet with no reports of nausea or vomiting although has not had a bowel movement yet. Recommend continue with bowel regimen and when necessary medications and will add an enema when necessary. Review of systems: Constitutional: No reports of fatigue, fever, or chills Cardiovascular: No reports of chest pain or palpitations Respiratory: No reports of shortness of breath or cough GI: No reports of nausea, vomiting, reports passing gas but no bowel movement yet : No reports of dysuria or retention Neurovascular: reports of generalized weakness and continued right hip pain All medications have been reviewed Active Medications Hydrocodone Bitart/Acetaminophen (Hydrocodone/Apap 7.5-325mg 1 Each Tab) 1 each PO Q6H PRN PRN Reason: Pain Scale 1 to 5 Last Admin: 02/04/22 07:55 Dose: 1 each Documented by: Hydrocodone Bitart/Acetaminophen (Hydrocodone/Apap 7.5-325mg 1 Each Tab) 2 each PO Q6H PRN PRN Reason: Pain Scale 6 to 10 Last Admin: 02/04/22 13:24 Dose: 2 each Documented by: Ascorbic Acid (Ascorbic Acid 500 Mg Tab) 500 mg PO DAILY [facility] Last Admin: 02/04/22 07:51 Dose: 500 mg Documented by: Aspirin (Aspirin 325 Mg Tab) 325 mg PO BID [facility] Last Admin: 02/04/22 07:52 Dose: 325 mg Documented by: Atorvastatin Calcium (Atorvastatin 10 Mg Tab) 10 mg PO DAILY [facility] Last Admin: 02/04/22 07:52 Dose: 10 mg Documented by: Fluoxetine HCl (Fluoxetine Hcl 20 Mg Cap) 60 mg PO QAM [facility] Last Admin: 02/04/22 07:52 Dose: 60 mg Documented by: Furosemide (Furosemide 40 Mg Tab) 40 mg PO QAM [facility] Last Admin: 02/04/22 07:52 Dose: 40 mg Documented by: Hydromorphone HCl (Hydromorphone 0.2 Mg/1 Ml Syringe) 0.2 mg IVP Q3HR PRN PRN Reason: Pain Scale 4 to 6 Hydromorphone HCl (Hydromorphone 0.5 Mg/0.5 Ml Syringe) 0.125 mg IVP Q3HR PRN PRN Reason: Pain Scale 1 to 3 Hydromorphone HCl (Hydromorphone 0.5 Mg/0.5 Ml Syringe) 0.5 mg IVP Q3HR PRN PRN Reason: Pain Scale 7 to 10 Last Admin: 01/29/22 20:30 Dose: 0.5 mg Documented by: Lactated Ringer's (Lactated Ringers) 1,000 mls @ 20 mls/hr IV .Q24H [facility] Last Admin: 02/03/22 10:19 Dose: Not Given Documented by: Sodium Chloride (Saline 0.9%) 1,000 mls @ 70 mls/hr IV .[id number] [facility] Last Admin: 02/04/22 10:41 Dose: 70 mls/hr Documented by: Vancomycin HCl 2,500 mg/ (Sodium Chloride) 500 mls @ 167 mls/hr IVPB Q12H [facility] Last Admin: 02/04/22 00:08 Dose: 167 mls/hr Documented by: Losartan Potassium (Losartan 50 Mg Tab) 50 mg PO QAM [facility] Last Admin: 02/04/22 07:52 Dose: 50 mg Documented by: Magnesium Hydroxide (Magnesium Hydroxide 2,400 Mg/10 Ml Cup) 2,400 mg PO DAILY PRN PRN Reason: Constipation Last Admin: 02/03/22 09:38 Dose: 2,400 mg Documented by: Metformin HCl (Metformin 500 Mg Tab) 500 mg PO BID [facility] Last Admin: 02/04/22 07:52 Dose: 500 mg Documented by: Multivitamins (Multivitamins, Thera 1 Each Tab) 1 each PO DAILY [facility] Last Admin: 02/04/22 07:52 Dose: 1 each Documented by: Naloxone HCl (Naloxone 0.4 Mg/Ml 1 Ml Vial) 0.2 mg IV Q2M PRN PRN Reason: Opioid Reversal Ondansetron HCl (Ondansetron 4 Mg/2 Ml Vial) 4 mg IVP Q8H PRN PRN Reason: Nausea And Vomiting Senna/Docusate Sodium (Sennosides-Docusate Sodium 1 Each Tab) 2 each PO HS [facility] Last Admin: 02/03/22 20:39 Dose: 2 each Documented by: Physical exam: Patient is sitting up in the chair comfortably, no acute distress, awake alert and oriented.. HEENT: Normocephalic. Neck is supple. Pupils reactive. Nostrils clear. Oral cavity is moist. Neck reveals no JVD, carotid bruits, or thyromegaly. CHEST EXAMINATION: Trachea is central. Symmetrical expansion. Lung murphy clear to auscultation and percussion. CARDIAC: Normal S1, S2 with no gallops. No murmurs ABDOMEN: Soft. Obese. Bowel sounds normal. No organomegaly. No abdominal br uits. Extremities: Bilateral lower extremity trace edema. No clubbing or cyanosis Neurologically awake, alert, oriented x3 with well-coordinated movements. No focal deficits noted Skin: No rash or skin lesions. Bilateral lower activity skin discoloration and loss of hair. Psychiatric: Cooperative. Non-suicidal Musculoskeletal: No joint swelling or deformity. Normal range of motion. Right hip surgical site bandaged. Assessment: Status post right hip arthroplastyrevisiondue to loose femoral stem.postoperative day 6 Hip joint infection. Wound cultures showed Enterococcus avium. 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 Encourage the patient to continue using incentive spirometer in the outpatient setting at least 10 times every hour while awake Appropriate home medications have been resumed Patient will continue on IV antibiotic therapy per infectious disease recommendations and is receiving a PICC line today for outpatient IV a bad experience patient will follow-up with Dr. Rivera in the outpatient setting Patient reports to passing gas but no bowel movement and recommend to continue with when necessary bowel regimen medications and have added enema as needed. Encouraged increased activity as tolerated with continued restrictions per orthopedic services Will continue to follow during hospitalization with orthopedics. Thank you for this consultation Anticipated discharge to [facility] after PICC line placement today Objective - Vital Signs Vital signs: Vital Signs Temp 99.4 F 02/04/22 07:55 Pulse 82 02/04/22 07:55 Resp 17 02/04/22 02:00 BP 145/81 02/04/22 07:55 Pulse Ox 94 L 02/04/22 07:55 Intake & Output 02/03/22 02/04/22 02/04/22 18:59 06:59 18:59 Intake Total 1130 Balance 1130 Intake: IV 1130 Sodium Chloride 0.9% 1, 630 000 ml @ 70 mls/hr IV . [id number] [facility] Rx#:[id number] Vancomycin 2,500 mg In 500 Sodium Chloride 0.9% 500 ml 500 ml @ 167 mls/hr IVPB Q12H [facility] Rx#: [id number] Other: Voiding Method Urinal Urinal # Voids 2 - Labs CBC & Chem 7: 02/04/22 04:31 02/04/22 04:31 Labs: Abnormal Lab Results - Last 24 Hours (Table) 02/03/22 02/04/22 02/04/22 Range/Units 03:01 04:31 04:31 RBC 2.70 L 2.66 L (4.40-5.60) X 10*6/uL Hgb 9.4 L 9.4 L (13.0-17.0) g/dL Hct 29.5 L 29.2 L (39.6-50.0) % MCV 109.3 H 109.8 H (80.0-97.0) fL MCH 34.8 H 35.3 H (27.0-32.0) pg MCHC 31.9 L (32.0-37.0) g/dL MPV 9.3 L (9.5-12.2) fL Immature Gran # 0.05 H 0.07 H (0.00-0.04) X 10*3/uL Lymphocytes # 0.86 L 0.65 L (0.90-5.00) X 10*3/uL Eosinophils # 0.42 H 0.42 H (0.04-0.35) X 10*3/uL Creatinine 0.64 L (0.66-1.25) mg/dL Glucose 140 H (74-99) mg/dL Calcium 7.9 L (8.4-10.2) mg/dL C-Reactive Protein 16.4 H (<1.0) mg/dL Microbiology - Last 24 Hours (Table) 02/01/22 14:26 Blood Culture - Preliminary Blood No Growth after 48 hours 01/29/22 13:13 Gram Stain - Final Hip - Right Wound Culture - Final Enterococcus avium
[2022-02-04] MEDS: LACTATED RINGERS 1,000 ML IV SCH (19:20)
[2022-02-04] MEDS: SENNOSIDES-DOCUSATE SODIUM 1 EACH TAB PO SCH (21:31)
[2022-02-04 22:22] VITALS: RESP 17
--- NOTE | 2022-02-04 22:22 | P.PN ---
Subjective Progress Note Date: 02/04/22 Principal diagnosis: right hip infection Patient is a 76-year old male with a chronic right hip pain in this patient status post revision right total hip arthroplasty with the OR culture positive for Enterococcus and concerning for a septic arthritis. On today's evaluation that is 02/04/2022 the patient denies any fever or any chills, the patient pain to the right hip is currently controlled, the patient denies chest pain shortness of breath or cough , the patient denies abdominal pain no diarrhea Objective - Vital Signs Vital signs: Vital Signs Temp 99.4 F 02/04/22 07:55 Pulse 82 02/04/22 07:55 Resp 17 02/04/22 02:00 BP 145/81 02/04/22 07:55 Pulse Ox 94 L 02/04/22 07:55 Intake & Output 02/03/22 02/04/22 02/04/22 18:59 06:59 18:59 Intake Total 1130 Output Total 600 Balance 1130 -600 Intake: IV 1130 Sodium Chloride 0.9% 1, 630 000 ml @ 70 mls/hr IV . [id number] [facility] Rx#:[id number] Vancomycin 2,500 mg In 500 Sodium Chloride 0.9% 500 ml 500 ml @ 167 mls/hr IVPB Q12H [facility] Rx#: [id number] Output: Urine 600 Other: Voiding Method Urinal Urinal # Voids 2 - Exam GENERAL DESCRIPTION: An elderly male lying in bed in no distress RESPIRATORY SYSTEM: Unlabored breathing , decreased breath sounds at bases HEART: S1 S2 regular rate and rhythm , ABDOMEN: Soft , no tenderness EXTREMITIES: No edema feet - Labs CBC & Chem 7: 02/04/22 04:31 02/04/22 04:31 Labs: Abnormal Lab Results - Last 24 Hours (Table) 02/04/22 02/04/22 Range/Units 04:31 04:31 RBC 2.66 L (4.40-5.60) X 10*6/uL Hgb 9.4 L (13.0-17.0) g/dL Hct 29.2 L (39.6-50.0) % MCV 109.8 H (80.0-97.0) fL MCH 35.3 H (27.0-32.0) pg MPV 9.3 L (9.5-12.2) fL Immature Gran # 0.07 H (0.00-0.04) X 10*3/uL Lymphocytes # 0.65 L (0.90-5.00) X 10*3/uL Eosinophils # 0.42 H (0.04-0.35) X 10*3/uL ESR 91 H (0-20) mm/Hr Creatinine 0.64 L (0.66-1.25) mg/dL Glucose 140 H (74-99) mg/dL Calcium 7.9 L (8.4-10.2) mg/dL C-Reactive Protein 16.4 H (<1.0) mg/dL Microbiology - Last 24 Hours (Table) 02/01/22 14:26 Blood Culture - Preliminary Blood No Growth after 48 hours Assessment and Plan (1) Infection of right prosthetic hip joint Current Visit: Yes Status: Acute Code(s): T84.51XA - INFECT/INFLM REACTION DUE TO INTERNAL RIGHT HIP PROSTH, INIT SNOMED Code(s): 293787961 Plan: 11patient with a right hip septic arthritis in this patient status post revision right hip arthroplasty now with the OR culture positive for Enterococcus, patient did have a penicillin allergy and is covered with vancomycin, patient is currently being treated with vancomycin PICC line has been ordered, waiting for outpatient IV antibiotic arrangement before discharge Time with Patient: Less than 30
[2022-02-05] MEDS: VANCOMYCIN 2,500 MG in SODIUM CHLORIDE 0.9% 500 ML 500 ML IVPB SCH ×2 (01:26→12:26)
[2022-02-05] MEDS: SODIUM CHLORIDE 0.9% 1,000 ML IV SCH (06:16)
[2022-02-05 07:25] VITALS: BP 155/75; PULSE 77; TEMP 97.4
[2022-02-05] MEDS: HYDROcodone/APAP 7.5-325MG 1 EACH TAB PO PRN ×2 (07:27→15:22)
[2022-02-05] MEDS: MULTIVITAMINS, THERA 1 EACH TAB PO SCH (07:27)
[2022-02-05] MEDS: ASPIRIN 325 MG TAB PO SCH (07:27)
[2022-02-05] MEDS: FLUoxetine HCL 20 MG CAP PO SCH (07:27)
[2022-02-05] MEDS: metFORMIN 500 MG TAB PO SCH (07:28)
[2022-02-05] MEDS: ASCORBIC ACID 500 MG TAB PO SCH (07:28)
[2022-02-05] MEDS: ATORVASTATIN 10 MG TAB PO SCH (07:28)
[2022-02-05] MEDS: FUROSEMIDE 40 MG TAB PO SCH (07:28)
[2022-02-05] MEDS: LOSARTAN 50 MG TAB PO SCH (07:28)
[2022-02-05] MEDS ORDERED: NA PHOS,M-B/NA PHOS,DI-BA 133 ML ENEMA RECTAL STA (09:43)
[2022-02-05] MEDS ORDERED: LIDOCAINE 1% INJ 10MG/ML (20 ML MDV) ONE (10:19)
[2022-02-05 11:03] VITALS: BMI 46.0
--- NOTE | 2022-02-05 11:40 | IR ---
PICC LINE PLACEMENT: HISTORY: Infection requiring long-term antibiotic therapy PROCEDURE: Ultrasound and fluoroscopic guidance of PICC line placement. COMPLICATIONS: None ANESTHESIA: 1. 1% Lidocaine locally. FINDINGS/TECHNIQUE: The procedure was explained to the patient. The risks, complications, benefits and alternatives were discussed and any questions were answered. Informed consent was obtained. The patient was placed supine on the fluoroscopic table and prepped and draped in the usual sterile fash ion. Utilizing a 21 gauge needle and sonographic and fluoroscopic guidance, access in the left basi lic vein was achieved and there is placement of a 0.018 guidewire. The vein is patent. A 4-F sheath was placed over the guidewire. The guidewire and dilator were removed and a 4-F. PICC line was plac ed through the sheath with the tip at the level of the SVC. The sheath was removed, the catheter was flushed and sutured into position. The patient was stable throughout the procedure and remained sta ble upon discharge from the Department of Radiology. The vein puncture was patent under ultrasound. A johnson scale image was obtained to document patency of the vein punctured. All elements of the maximal barrier technique were utilized. FLUOROSCOPY TIME: 0.1 minutes and 1 image submitted IMPRESSION: Successful PICC line placement under ultrasound and fluoroscopic guidance.
--- NOTE | 2022-02-05 15:18 | P.PN ---
Subjective Progress Note Date: 02/05/22 Patient is a 76-year-old male with a known history of coronary artery disease, history of CVA/TIA, hypertension, hyperlipidemia, history of ND, prior history of left hip arthroplasty and bilateral knee arthroplasty, depression, currently everyday smoker and daily alcohol use admitted to hospital for right hip arthroplasty revision. Patient underwent loose femoral stem right total hip arthroplasty. Currently denies any complaints of worsening pain. No complaints of chest pain or shortness of breath. No nausea vomiting or abdominal pain or diarrhea. Denies any dysuria or hematuria. No cough or sputum production. Laboratory data showed WBC 6.1 hemoglobin 13.8 MCV 1090.3 and platelets 186 01/31/2022 Patient is currently sitting in the chair. Awake alert and oriented x3. No complaints of chest pain or shortness of breath. Diet pain is controlled with medications. No fever no chills. No cough or sputum production. Blood pressure is elevated this morning but is controlled currently after medications. Patient is being continued on PT OT. Possible discharge to rehab.Wound cultures from the right hip showed group 3 Enterococcus species. 02/01/2022 Patient is currently sitting in the chair comfortably. Awake alert and oriented x3. Right hip pain is controlled with medications. Otherwise patient is being continued on antibiotics above vancomycin due to Enterococcus wound cultures. Patient has been afebrile. No cough or sputum production. No headache or dizziness or lightheadedness. Laboratory showed WBC 6.47 hemoglobin 9.9 and platelets 148 Sodium 138 potassium 3.7 chloride 102 bicarb is 27.5 BUN 10 and creatinine 0.7 and calcium 8.1 ID is on board. 02/03/2022 Patient is resting in the chair. Awake alert and oriented x3. No cough or sputum production. No fever no chills. During the complaints of right hip pain. Pain is controlled with medications. No chest pain or shortness breath. No fever no chills. No cough or sputum production. Patient is being continued on vancomycin due to right hip prostate joint infection. Patient will need PICC line and possible rehab transfer. ID is on board. No other acute overnight issues. Laboratory data showed WBC 4.9 hemoglobin 9.4 and platelets 188 sodium 137 potassium 3.6 chloride 107 bicarb 27 BUN 49 creatinine 0.6 and calcium 7.7 02/04/2022 Patient was seen and evaluated in follow-up this morning currently sitting up in the chair. Per patient report he is to receive a PICC line today and will continue on IV antibiotics status post right hip prosthesis joint infection. Patient being closely monitored and followed by orthopedics and plan is for discharge to [facility] rehab for continued PT/OT therapy and IV antibiotic management. Patient will follow-up with infectious disease Dr. Rivera in the ou tpatie setting. Patient denies any chest pain or shortness of breath. Patient is afebrile. Patient reports to passing gas and tolerating diet with no reports of nausea or vomiting although has not had a bowel movement yet. Recommend continue with bowel regimen and when necessary medications and will add an enema when necessary. 02/05/2022 Patient is seen and evaluated this morning awaiting to receive a PICC line as patient was unable to get PICC line placed yesterday. Orthopedic plans on discharging patient to [facility] and patient will come and continue with IV antibiotic therapy per infectious disease recommendations. Patient continues to pass large amounts of gas but has not had a bowel movement and feels slightly constipated. Recommend to continue with bowel regimen and will add Fleet enema. Patient denies chest pain or shortness of breath. Patient is afebrile. Patient continues with right hip pain although no worse. Patient is scheduled to be discharged this afternoon. Review of systems: Constitutional: No reports of fatigue, fever, or chills Cardiovascular: No reports of chest pain or palpitations Respiratory: No reports of shortness of breath or cough GI: No reports of nausea, vomiting, reports passing gas but no bowel movement yet : No reports of dysuria or retention Neurovascular: reports of generalized weakness and continued right hip pain All medications have been reviewed Physical exam: Patient is sitting up in the chair comfortably, no acute distress, awake alert and oriented.. HEENT: Normocephalic. Neck is supple. Pupils reactive. Nostrils clear. Oral cavity is moist. Neck reveals no JVD, carotid bruits, or thyromegaly. CHEST EXAMINATION: Trachea is central. Symmetrical expansion. Lung murphy clear to auscultation and percussion. CARDIAC: Normal S1, S2 with no gallops. No murmurs ABDOMEN: Soft. Obese. Bowel sounds normal. No organomegaly. No abdominal bruits. Extremities: Bilateral lower extremity trace edema. No clubbing or cyanosis Neurologically awake, alert, oriented x3 with well-coordinated movements. No focal deficits noted Skin: No rash or skin lesions. Bilateral lower extremities with skin discoloration and loss of hair. Psychiatric: Cooperative. Non-suicidal Musculoskeletal: No joint swelling or deformity. Normal range of motion. Right hip surgical site bandaged. Assessment: Status post right hip arthroplastyrevisiondue to loose femoral stem.postoperative day 7 Hip joint infection. Wound cultures showed Enterococcus avium. 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 Encourage the patient to continue using incentive spirometer in the outpatient setting at least 10 times every hour while awake Appropriate home medications have been resumed Patient will continue on IV antibiotic therapy per infectious disease recommendations and is receiving a PICC line today for outpatient IV antibiotics. patient will follow-up with Dr. Rivera in the outpatient setting Patient reports to passing gas but no bowel movement and recommend to continue with when necessary bowel regimen medications and have added enema as needed. Encouraged increased activity as tolerated with continued restrictions per orth opedic services Will continue to follow during hospitalization with orthopedics. Thank you for this consultation Anticipated discharge to [facility] after PICC line placement today The impression and plan of care has been dictated by Laurie Villegas, Nurse Practitioner as directed. Dr. Coco MD I have performed a history and examination and MDM of this patient, discussed the same with the dictator, and agree with the dictator's assessment and plan as written ,documented as a scribe. Based on total visit time, I have performed more than 50% of the visit. Objective - Vital Signs Vital signs: Vital Signs Temp 97.4 F L 02/05/22 07:25 Pulse 77 02/05/22 07:25 Resp 17 02/05/22 07:25 BP 155/75 02/05/22 07:25 Pulse Ox 96 02/05/22 07:25 Intake & Output 02/04/22 02/05/22 02/05/22 18:59 06:59 18:59 Intake Total 300 Output Total 1100 800 Balance -1100 -800 300 Intake: Oral 300 Output: Urine 1100 800 Other: Voiding Method Urinal # Voids 1 - Labs CBC & Chem 7: 02/04/22 04:31 02/04/22 04:31 Labs: Abnormal Lab Results - Last 24 Hours (Table) 02/01/22 02/04/22 Range/Units 04:33 04:31 ESR 91 H (0-20) mm/Hr C-Reactive Protein 21.60 H (0.00-0.80) mg/dL Microbiology - Last 24 Hours (Table) 02/01/22 14:26 Blood Culture - Preliminary Blood No Growth after 72 hours
[2022-02-06] MEDS ORDERED: VANCOMYCIN TROUGH DUE 1 EACH MISC MISCELLANE ONE (12:00)
== END 2022-02-05 16:20 | DRG 468 ==
LOC: 2ORMAIN 09:46 → 4SSUR 16:14
PROVIDERS: ADMIT Orthopaedic Surgery; ATTEND Orthopaedic Surgery
PROC: 0SP90JZ Removal of Synthetic Substitute from Right Hip Joint, Open Approach (ICD-10-PCS; principal; 2022-01-29 11:20)
PROC: 0SR906A Replacement of Right Hip Joint with Oxidized Zirconium on Polyethylene Synthetic Substitute, Uncemented, Open Approach (ICD-10-PCS; principal; 2022-01-29 11:20)
PROC: 02HV33Z Insertion of Infusion Device into Superior Vena Cava, Percutaneous Approach (ICD-10-PCS; 2022-02-05)
DX: T84.030A Mechanical loosening of internal right hip prosthetic joint, initial encounter (principal); Z86.19 Personal history of other infectious and parasitic diseases; D75.89 Other specified diseases of blood and blood-forming organs; E11.9 Type 2 diabetes mellitus without complications; E78.5 Hyperlipidemia, unspecified; F17.200 Nicotine dependence, unspecified, uncomplicated; F32.A Depression, unspecified; F41.9 Anxiety disorder, unspecified; G89.29 Other chronic pain; I10 Essential (primary) hypertension; I25.10 Atherosclerotic heart disease of native coronary artery without angina pectoris; I25.2 Old myocardial infarction; I87.8 Other specified disorders of veins; M19.90 Unspecified osteoarthritis, unspecified site; T84.51XA Infection and inflammatory reaction due to internal right hip prosthesis, initial encounter; B95.2 Enterococcus as the cause of diseases classified elsewhere; Y83.1 Surgical operation with implant of artificial internal device as the cause of abnormal reaction of the patient, or of later complication, without mention of misadventure at the time of the procedure; Z79.82 Long term (current) use of aspirin; Z79.84 Long term (current) use of oral hypoglycemic drugs; Z79.899 Other long term (current) drug therapy; Z82.49 Family history of ischemic heart disease and other diseases of the circulatory system; Z86.14 Personal history of Methicillin resistant Staphylococcus aureus infection; Z86.72 Personal history of thrombophlebitis; Z86.73 Personal history of transient ischemic attack (TIA), and cerebral infarction without residual deficits; Z96.642 Presence of left artificial hip joint; Z96.653 Presence of artificial knee joint, bilateral; Z88.0 Allergy status to penicillin; Z83.2 Family history of diseases of the blood and blood-forming organs and certain disorders involving the immune mechanism; Z90.49 Acquired absence of other specified parts of digestive tract; Z98.890 Other specified postprocedural states
CPT/HCPCS: 36573; 73501; 80048; 80202; 82607; 82747; 85025; 85027; 85610; 85652; 86140; 86850; 86900; 86901; 87040; 87070; 87075; 87077; 87186; 87205